=== PATIENT | female | born 1955 | race Caucasian/White ===

== ENCOUNTER 2023-02-12 10:03 | Outpatient (AMB) | payer MEDICARE, SELFPAY ==
--- NOTE | 2023-02-12 10:56 | AM.OFFWIN_ITS ---
Intake Vital Signs 02/12/23 10:57 Height 5 ft 1 in BP 118/64 Blood Pressure Location Lt brachial Position Sitting Pulse 78 Pulse Source Pulse Oximeter Temp 98.8 F Temp Source Temporal Artery Scan Pulse Oximetry (%) 98 Oxygen Delivery Method Room Air Intake Visit Reasons: EST/sores inside of nose (lobby) Intake Note: pt is here for c/o sores inside nose, suspects its herpes virus Patient Tobacco Use Status: Never used Tobacco Allergies No Known Allergies Allergy (Verified 02/12/23 11:01) Do you need a note to return to daycare/school/sports/work: Yes HPI HPI Comments History of Present Illness Details The patient is a 67-year-old female in today for a sick visit. She has a past medical history significant for HIV. She is here today because of pus filled lesions around her mouth x2 weeks. Patient states that when they 1st appeared she tried to drain them herself, which has led to more appearing. She also states that she has pustules in both nostrils. Primary complaint is the pain. She has used Vaseline in her nose with little effect. Denies fever, nausea, vomiting, chills, or diarrhea. Patient has several fluid-filled pustule superior to her upper lip. She also has 2 postural in her left and right [place]. No nasal discharge. Pharynx is normal. TM is intact, visible common pearly amanda. No wheeze. Heart rate normal. The pustules are likely result of HIV status. This is unlikely to be a necrotizing infection. Patient will be given Bactrim to treat the pustules on her face, and erythromycin topical solution for the nares. Patient declined giving labs in office due to her having on appointment with her primary care physician in the near future. Patient has been educated on the side effects of the medication. She has been instructed to stop draining the pustules. She has been educated on signs of worsening symptoms, when to report back to the walk-in clinic and when to report to the emergency room. [facility] Social History Patient Tobacco Use Status: Never used Tobacco Review of Systems Const Details: Constitutional : No Weight loss, No Fever, No Chills, No Fatigue, No Malaise ENT/Mouth : No sore throat, Admits lesions around upper lip and in nostrils. Eyes: No Eye Pain, No Swelling, No Redness Cardiovascular : No Chest Pain, No SOB, No Dyspnea on Exertion, No Orthopnea, No Edema, No Palpitations Respiratory : No Cough, No Sputum, No Wheezing Gastrointestinal : No Nausea, No Vomiting, No Diarrhea, No Constipation, No abdominal Pain, No Hematochezia, No Melena Genitourinary : No Dysuria, No Urinary Frequency, No Hematuria, Musculoskeletal : No joint pain, No Myalgias, No Joint Swelling Skin : No Skin Lesions, No rash Neuro : No Weakness, No Numbness, No Dizziness, No Headache Psych : No Anxiety/Panic, No Depression Heme/Lymph: No Bruising, No Bleeding,No Lymphadenopathy All other systems reviewed and are negative All systems reviewed & are unremarkable except as noted in HPI and below Physical Exam Vital Signs: Last Vital Signs Temp 98.8 F 02/12/23 10:57 Pulse 78 02/12/23 10:57 BP 118/64 02/12/23 10:57 Pulse Ox 98 02/12/23 10:57 Oxygen Delivery Method Room Air 02/12/23 10:57 Vital signs have been reviewed in are stable Appearance: Alert.? Oriented X3.? No acute distress.? Head: Normocephalic, atraumatic, no step-offs or deformities Eyes: Pupils equal, round and reactive to light.? ENT: Pharynx normal. Pustules in nares bilaterally. ? Neck: Normal inspection.? Neck supple.? CVS: Normal heart rate and rhythm.? Pulses normal.? Respiratory: No respiratory distress.? Breath sounds normal.? Abdomen: Soft and nontender.? Skin: four small, erythematous pustules located superior to upper lip. Neuro: Oriented X 3.? Assessment & Plan Assessment & Plan (1) Skin pustule: Comment: Patient will be given Bactrim to be taken in its entirety. Patient will also be given topical erythromycin for the naris. She has been educated on side effects of the medication. She has been educated on signs of worsening symptoms and when to return to the ED and when to return to the walk-in clinic. She has been educated not to drain the pustules at home. She has declined labs in office, states she has upcoming appointment with her PCP soon. Patient is agreeable to this plan Code(s): L08.9 - Local infection of the skin and subcutaneous tissue, unspecified Coding Level of Care Code New Pt Level 4 (96047) Diagnoses Skin pustule L08.9 Time Spent (min) 20
[2023-02-12 10:57] VITALS: BP 118/64; PULSE 78; TEMP 37.1; O2SAT 98
== END 2023-02-12 11:38 | disposition home or self-care (01) ==
PROVIDERS: Visit Provider Nurse Practitioner Primary Care
DX: L08.9 Local infection of the skin and subcutaneous tissue, unspecified (principal)
CPT/HCPCS: 99204

== ENCOUNTER 2024-06-17 11:51 | Outpatient (REF) | payer OTHER, SELFPAY | END 2024-06-17 11:52 | disposition home or self-care (01) | LOC: CF 11:51 | DX: Z13.89 Encounter for screening for other disorder (principal) ==

== ENCOUNTER 2024-12-16 10:34 | Outpatient (AMB) | payer OTHER, SELFPAY ==
--- NOTE | 2024-12-16 10:46 | A.OFFVIS_ITS ---
Intake Visit Reasons: 6 Months AD Allergies No Known Allergies Allergy (Verified 02/12/23 11:01) HPI Comments Details: 69 years old woman with HIV disease and dementia probably of Alzheimer type or multifactorial. She is presenting with difficulty walking and concerns about fall risk. During the history, she reported experiencing repeated falls due to lack of sensation in her right foot leading to improper weight distribution while ambulating at night, resulting in significant injuries including head trauma. Approximately a month ago, she fell and sustained notable facial bruising and soreness following an impact with her furniture. She self-managed the injury with ice application. The history further indicates persistent difficulty in ambulation, characterized by unmet expectations when walking independently, exacerbated by lower back pain with radiation into the right leg, impairing her right leg's mobility. These symptoms have cumulatively contributed to her uncertainty about walking independently without assistance. Her decision to request a cane from her insurance provider reflects a proactive approach towards ensuring her safety and preventing further incidents. [facility] Medical History (Updated 12/16/24 @ 10:51 by Norman Abarca MD) Encephalopathy Alzheimer disease Social History Patient Tobacco Use Status: Never used Tobacco Review of Systems Const Details: - Neurological: Reports difficulty walking, lack of sensation in the right foot - Musculoskeletal: Reports pain in lower back radiating down the right leg - Integumentary: Reports past facial bruising and soreness from a fall Physical Exam Neuro Other: She is alert and awake with normal spontaneity of speech fluency comprehension and affect. Deep tendon reflexes are trace to absent. Gait is cautious. Speech is normal. Assessment & Plan Assessment & Plan (1) HIV disease: Code(s): B20 - Human immunodeficiency virus [HIV] disease Category: Medical (2) Encephalopathy: Code(s): G93.40 - Encephalopathy, unspecified Category: Medical Qualifiers: Encephalopathy type: unspecified encephalopathy Qualified Code(s): G93.40 - Encephalopathy, unspecified (3) Syncope and collapse: Code(s): R55 - Syncope and collapse Category: Medical Plan 69 years old woman with probably controlled HIV disease, cognitive difficulties, and falling with couple of falls of unclear etiology. I had never seen her brain scan that was done years ago at [facility], [place]. Under present circumstances, I have requested an MRI of brain in an EEG. Orders: Orders MR head/brain wo/w con Today G93.40 - Encephalopathy, unspecified EEG electroencephalogram Today G93.40 - Encephalopathy, unspecified Coding Level of Care Code Est Pt Level 4 (65421) Diagnoses HIV disease B20 Encephalopathy, unspecified type G93.40 Encephalopathy type: unspecified encephalopathy Syncope and collapse R55
--- OUTSIDE RECORDS SUMMARY | 2024-12-16 13:02 | XMS_ITS | Clinical Summary ---
Author Organization [address] Address [address] [place] [phone] Phone Care Team Providers Care Real Estate Transaction Coordinator Name Role Phone Roxana Mendez MD Primary Care Provider [phone] Allergies No known active allergies Medications buprenorphine-n aloxone (SUBOXONE) 8-2 mg per SL film Place under the tongue. Prescribed by the Suboxone clinic Active buPROPion SR (WELLBUTRIN SR) 200 mg 12 hr tablet Take 1 tablet (200 mg total) by mouth 2 (two) times a day. Prescribed by the Infectious Disease Provider Active naloxone (Narcan) 4 mg/0.1 mL nasal spray CALL 911. SPR CONTENTS OF ONE SPRAYER (0.1ML) INTO ONE NOSTRIL. REPEAT IN 2-3 MIN IF SYMPTOMS OF OPIOID EMERGENCY PERSIST, ALTERNATE NOSTRILS 4 Active darunavir-cobic istat-emtricita bine-tenofovir ala (Symtuza) [phone] mg per tablet Take 1 tablet by mouth 1 (one) time each day. Prescribed by Infectious Disease Active sertraline (ZOLOFT) 25 mg tablet Take 1 tablet (25 mg total) by mouth 1 (one) time each day. 90 tablet 1 5 Active donepeziL (ARICEPT) 10 mg tablet Take 1 tablet (10 mg total) by mouth at bedtime. Prescribed by Neurologist, Dr. 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 ([facility] V24, [facility] V28) 09/16/2023 Overview (02/04/2024): Believed to be related with frequent falls, severe multilevel neuroforaminal stenosis with most pronounced at C5-6, status post MRI, CT angiograms.note 09/16/23 Substance abuse ([facility] V24, [facility] V28) 09/15 Overview (02/04/2024): most recently Heroin, on suboxone from [place] S[place]ope 05/02/2022 Fatty liver 03/09/2019 Overview (02/04/2024): US 11/2010 Assessment & Plan (05/12/2024 1:10 PM EST): LFTs were elevated on last hepatic function test. Order placed for patient to repeat CMP. Patient is to contact office if she develop any abdominal discomfort jaundice or yellowing of the sclera. She is not currently followed by gastroenterology. She last saw her purse seining hand in 2023 for progressive weight loss. Workup was unremarkable. Will refer patient back to gastroenterology if LFT continues to trend up or if patient develop any abdominal discomfort or yellowing of the skin or eyes. Herpes simplex type 1 antibody positive 03/09/20 Overview (02/04/2024): 04/30/18, Type 2 neg Lumbar stenosis 03/09/2019 Overview (02/04/2024): L2-L3, L3-L4, MRI 08/2010 Osteopenia 03/09/2019 Overview (02/04/2024): DEXA 12/13/10 Unspecified cirrhosis of liver ([facility] V24, [facility] V28) 03/09/2019 Type 2 diabetes mellitus wit h renal manifestations ([facility] V24, [facility] V28) 03/09/2019 Assessment & Plan (05/12/2024 1:10 PM EST): Patient is to repeat A1c in 6 months from the last. Order placed Please maintain a low carb diet to optimize blood sugar levels (avoid sweet drinks/snacks, excess bread, pasta intake and replace red meat with chicken and fish and increase salad intake). Attempt exercise daily or at least 3 times a week for 30 min. Complications associated with uncontrolled diabetes includes, but are not limited to an increased risk of cardiovascular disease, retinopathy, neuropathy, renal disease, increased risk of infections with open wounds and amputations. Orders: Hemoglobin A1c; Future Comprehensive metabolic panel; Future Thyroid stimulating hormone with reflex to free t4 and free t3; Future Fatigue 12/15/2018 Microalbuminuria 12/15/2018 Leukopenia 03/27/2018 Thrombocytopenia ([facility] V24) 03/29/2017 Cataracts, bilateral 07/20/2016 Posterior vitreous detachment 07/20/2016 Overview (02/04/2024): Bilat Chronic cholecystitis 12/27/2014 Vitamin D deficiency 12/26/2014 DM (diabetes mellitus), type 2 with neurological complications ([facility] V24, [facility] V28) 09/02/2014 Opiate dependence ([facility] V24, [facility] V28) 11/2014 Overview (02/04/2024): Suboxone Type 2 diabetes mellitus wit h cataract ([facility] V24, [facility] V28) 09/17/2011 Overview (02/04/2024): Nuclear sclerosis noted by Dr. Cross Last Assessment & Plan: Checking Your Blood Sugars Please check your blood sugars every day. Please check your sugars at the following times of day: before breakfast, before lunch, before dinner and before bedtime Your Blood Sugar Goals Pre Meal: 90-130 2 hours after meals: 110-160 Bedtime: 110-150 Use the Results Bring your glucometer to every appointment Write your fingerstick blood sugars down on a log sheet or record book. Bring them to your appointment Look for patterns in the numbers. The results help you and your provider make decisions about your diabetes treatment plan. Your Results and your Goals Your Result / Date of Completion Your Goal / How Often to Assess Component Value Date HGBA1C 9.0 04/05/2012 Less than 7%--- 2-4 times per year BP Readings from Last 1 Encounters: 10/08/12 132/83 Less than 130/80--- once per year Component Value Date LDL 134 04/05/2012 LDL less than 100--- once per year Component Value Date MALBUR 11.9 04/05/2012 Less than 30--- once per year Wt Readings from Last 1 Encounters: 10/08/12 156 lb 9.6 oz (71.033 kg) Your goal weight by next visit: 150 --- reassess 2-4 times a year Health Maintenance Due Topic Date Due ? Colon Cancer Screening 01/01/2008 ? Diabetes: Blood Sugar Control Test (Hgba1c) 08/03/2012 ? Mammogram 08/08/2012 ? Diabetes: Annual Foot Exam 09/16/2012 ? Diabetes: Annual Care Plan 09/16/2012 Your Action Plan Check blood glucose as directed and write down all results. Contact me if you experience any barriers to care such as inability to purchase your medication, difficulty getting to your appointments or difficulty understanding your care plan follow with [facility] dm specialist When to Call your Healthcare Provider If your blood sugar falls below 70 and you do not know why or you become unconscious If you are sick and unable to take liquids because or nausea or vomiting If you have a fever over 101 If your blood sugar is 300 or higher on greater than 3 separate occasions during the same week If you are just unsure what to do Educational Resources [place] Diabetes Association (www.diabetes.org) Centers for Disease Control and Prevention (www.cdc.gov/diabetes) This care plan was created in collaboration with Reba Laureano on 10/08/2012 Adrenal insufficiency ([facility] V24) 12/30/2009 Human immunodeficiency virus (HIV) disease ([facility] V24, [facility] V28) 12/06/2006 Overview (02/04/2024): On meds since 2007- Dr. Ana Brizuela, viral load undetectable 10/08/18 Assessment & Plan (05/12/2024 1:10 PM EST): Patient is to continue Symtuza as prescribed by infectious disease. Patient is to continue following up with infectious disease. Cocaine abuse, episodic ([facility] V24, [facility] V2 8) 10/25/2006 GERD (gastroesophageal reflux disease) 7 Major depressive disorder 10/25/2005 Mixed hyperlipidemia 10/25/2005 Assessment & Plan (05/12/2024 1:10 PM EST): Last LDL 96. Cardiovascular risk and specific lipid/LDL goals reviewed. I discussed in context of patient risks of coronary artery disease which is associated with total cholesterol, high LDL and low HDL cholesterol. It was also discussed in the context of patient's family history CAD and ME. Lifestyle modification was discussed. I recommend exercise 3-4 times per week on average 30 minutes each at moderate to vigorous intensity. Dietary change include: Incorporation of fruits and vegetable whole-grain low-fat dairy products, poultry, fish and legumes. limitation of sugar sweetened beverage other sweets and red meats. Reduce calorie from saturated and trans fat. Orders: Hemoglobin A1c; Future Comprehensive metabolic panel; Future Thyroid stimulating hormone with reflex to free t4 and free t3; Future Encounters Date Type Department Care Team Description 10/01/2024 Telephone Adult Medicine [address] [phone] Roxana Mendez MD from Last 3 Months Immunizations Name Administration Dates Next Due Hepatitis B (Ibdyrql-C-Akcrf , Recombivax HB-Adult) 19yo and older 04/28/2007,03/07/2004,06/24/2000 Hepatitis B (Recombivax HB-D ialysis) 18yo and older 11/25/2006,10/25/2006 Influenza trivalent, 0.5mL, preservative free (Fluarix; FluLaval; Fluzone) ages 6mo and older (Afluria) 3 years and older 12/18/2021,03/17/2021,02/17/2019,04/30,12/30/2009,01/07/2007 Influenza trivalent, with pr eservative (Fluzone; Afluria) 6mo and older 01/28/2006 PPD Test 10/11/2006,06/27/2000,06/24/2000 Pneumococcal polysaccharide 23 valent (Pneumovax 23) 2yo and older 12/18/2021,03/17/2002 Td Tetanus diptheria (Tdvax) 7yo and older 06/24/2000 Td, Unspecified 06/24/2000 Tdap Tetanus diptheria acell ular pertussis (Boostrix; Adacel) 7yo and older 10/31/2011 Surgical History Surgery Date Site/Laterality Comments HYSTERECTOMY 2000 PROCEDURE: HISTORICAL TOTAL HYSTERECTOMY WITH BSO; COMMENT: excessive bleeding SECTION PROCEDURE: HISTORICAL DELIVERY; COMMENT: X 3 BREAST LUMPECTOMY PROCEDURE: HISTORICAL BREAST LUMPECTOMY UPPER GASTROINTESTINAL ENDOSCOPY 03/03/12 PROCEDURE: DC UPPER GI ENDOSCOPY PERFORMED; COMMENT: normal COLONOSCOPY 12/31/2006 PROCEDURE: HISTORICAL COLONOSCOPY; COMMENT: negative Medical History Medical History Date Comments Adrenal insufficiency ([facility] V24) 12/30/2009 DX:Adrenal insufficiency ([facility]) Cataracts, bilateral 07/20/2016 DX:Cataract s, bilateral Chronic cholecystitis 12/27/2014 DX:Chronic cholecystitis Cocaine abuse, episodic ([facility] V24, [facility] V28) 10/25/2006 DX:Cocaine abuse, episodic ( HCC) DM (diabetes mellitus), type 2 with neurological complications ([facility] V24, [facility] V28) 09/02/2014 DX:DM (diabetes mellitus), t ype 2 with neurological complications ([facility]) Fatigue 12/15/2018 DX:Fatigue Fatty liver 03/09/2019 DX:Fatty liver; COMMENT: US 11/2010 GERD (gastroesophageal reflu x disease) 09/17/2006 DX:GERD (gastroesophageal re flux disease) Herpes simplex type 1 antibo dy positive 03/09/2019 DX:Herpes simplex type 1 ant ibody positive; COMMENT: 04/30/18, Type 2 neg History of carpal tunnel rel ease of both wrists 10/25/2006 DX:History of carpal tunnel release of both wrists; COMMENT: [facility] surgery -09/2010 History of transient ischemi c attack (TIA) 06/10/2018 DX:History of transient isch emic attack (TIA); COMMENT: Admitted [facility] 03/02/2018. Human immunodeficiency virus (HIV) disease ([facility] V24, [facility] V28) 12/06/2006 DX:Human immunodefi ciency virus (HIV) disease ([facility]); COMMENT: On meds since 2007- Dr. Ana Brizuela, viral load undetectable 10/08/18 Leukopenia 03/27/2018 DX:Leukopenia Lumbar stenosis 03/09/2019 DX:Lumbar stenos is; COMMENT: L2-L3, L3-L4, MRI 08/2010 Major depressive disorder 10/25/2005 DX:Ben or depressive disorder Microalbuminuria 12/15/2018 DX:Microalbumin uria Opiate dependence ([facility] V 24, [facility] V28) 04/09/2014 DX:Opiate dependence ([facility]); COMMENT: Suboxone Osteopenia 03/09/2019 DX:Osteopenia; C OMMENT: DEXA 12/13/10 Posterior vitreous detachment 07/20/2016 DX :Posterior vitreous detachment; COMMENT: Bilat 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 Cross Type 2 diabetes mellitus wit h renal manifestations ([facility] V24, [facility] V28) 03/09/2019 DX:Type 2 diabetes mellitus with renal manifestations (HCC) Unspecified cirrhosis of rustam er ([facility] V24, [facility] V28) 03/09/2019 DX:Unspecified cirrhosis of liver (HCC) Vitamin D deficiency 12/26/2014 DX:Vitamin D deficiency Mixed hyperlipidemia 10/25/2005 DX:Mixed hy perlipidemia History of COVID-19 05/02/2021 DX:History o f COVID-19; COMMENT: 12/2020 Family History Medical History Relation Name Comments Diabetes Father fibromyalgia, a rthritis Stroke Maternal Grandfather pt not really sure Diabetes Mother colon polyps, a rthritis, glaucoma, cataract Glaucoma Sister Relation Name Status Comments Father Maternal Grandfather Mother Sister Social History Tobacco Use Types Packs/Day Years Used Date Smoking Tobacco: Former Cigarettes Q uit: 04/01/2010 Smokeless Tobacco: Never Alcohol Use Standard Drinks/Week Comments Yes 0 (1 standard drink = 0.6 oz pur e alcohol) Comments No Sex and Gender Information Value Date Recorded Sex Assigned at Not on file Legal Sex Female 8:14 AM EST Gender Identity Not on file Sexual Orientation Not on file Obstetrics History Last Filed Vital Signs Vital Sign Reading Time Taken Comments Blood Pressure 125/62 05/12/2024 11:14 AM EST Pulse 53 05/12/2024 11:14 AM EST Temperature 36.2 C (97.1 F) 05/12/2024 11:14 AM EST Respiratory Rate 16 05/12/2024 11:14 AM EST Oxygen Saturation 98% 05/12/2024 11:14 AM EST Inhaled Oxygen Concentration - - Weight 46.4 kg (102 lb 6.4 oz) 05/12/2024 11:14 AM EST Height 154.9 cm (5' 1 ) 05/12/2024 11:14 AM EST Body Mass Index 19.35 05/12/2024 11:14 AM EST Plan of Treatment Upcoming Encounters Date Type Department Care Team (Late st Contact Info) Description 02/11/2025 11:15 AM EST Office Visit Adult Medicine [address] [phone] Roxana Mendez MD [address] [place] [address] Health Maintenance Due Date Last Done Comments Breast Cancer Screening 1955 Diabetes: Annual Foot Exam 08/23/1965 Diabetes: Annual Retina Eye Exam 08/23/1965 Zoster Vaccines (1 of 2) 08/23/1974 Medicare Annual Wellness Visit 03/04/2022 Osteoporosis Screening (Bone Density Screening) 03/04/2022 Social Influencers of Health Screening 03/04/2022 Diabetes: Annual Urine Albumin-Creatinine Ratio (uACR) 09/15/2024 09/16/2023 Diabetes: Blood Sugar Control Test (HGBA1C) 09/28/2024 03/30/2024, 09/16/2023, 09/16/2023 Diabetes: Annual GFR (Glomerular Filtration Rate) 03/30/2025 03/30/2024, 09/16/2023, 09/16/2023 Hypertension/CHF/CAD Annual BMP Blood Test 03/30/2025 03/30/2024, 09/16/2023, 09/16/2023 Falls Risk Assessment 05/12/2025 05/12/2024 Colorectal Cancer Screening: Colonoscopy 10/17/2026 10/17/2016 Cholesterol Screening (Lipid Panel) 03/30/2029 03/30/2024, 01/01/2023 Hepatitis B Vaccines Completed 04/28/2007, 11/25/2006, 10/25/2006, Additional history exists DTaP,Tdap,and Td Vaccines Discontinued 2011, 06/24/2000, 06/24/2000 Hepatitis C Screening Completed 03/29/2017 Influenza Vaccine Discontinued 12/18/2021, , 02/17/2019, Additional history exists Pneumococcal Vaccine: 50+ Years Discontinued 12/18/2021, 03/17/2002 Depression Screening Completed 05/12/2024, 02/21/20 23 COVID-19 Vaccine Discontinued HIB Vaccines Aged Out No longer eligi ble based on patient's age to complete this topic HPV Vaccines Aged Out No longer eligi ble based on patient's age to complete this topic Hepatitis A Vaccines Discontinued IPV Vaccines Aged Out No longer eligi ble based on patient's age to complete this topic MMR Vaccines Discontinued Meningococcal ACWY Vaccine Discontinued Meningococcal B Vaccine Aged Out No l onger eligible based on patient's age to complete this topic RSV Immunization Adult Patients Discontinued RSV Immunization Patients Under 20 months Aged Out No longer eligible based on patient's age to complete this topic Varicella Vaccines Aged Out No longer eligible based on patient's age to complete this topic Procedures Procedure Name Priority Date/Time Associated Diagnosis Comments CREATININE, SERUM Routine 03/30/2024 10: 58 AM EST Human immunodeficiency virus (HIV) disease ([facility] V24, [facility] V28) HEMOGLOBIN A1C Routine 03/30/2024 10:58 AM EST DM (diabetes mellitus), type 2 with neurological complications (CMS/HCC V24, CMS/HCC V28) LIPID PANEL WITH REFLEX TO DIRECT LDL Routine 03/30/2024 10:58 AM EST DM (diabetes mellitus), type 2 with neurological complications (CMS/HCC V24, CMS/HCC V28) HM URINE ALBUMIN CREATININE RATIO Routine 09/16/2023 DEPRESSION SCREENING Routine 02/20/2023 HEPATITIS C SCREENING Routine 03/29/2017 COLONOSCOPY Routine 10/17/2016 from Last 3 Months or Most Recently Relevant to Health Maintenance Results * (ABNORMAL) Lipid panel with reflex to direct LDL (03/30/2024 10:58 AM EST) Cholesterol 189 0 - 200 mg/dL LAB CHEMISTRY METHOD 03/30/2024 6:01 PM [facility] Triglycerides 204(H) 0 - 150 mg/dL LAB CHEMISTRY METHOD 03/30/2024 6:01 PM [facility] HDL 52 >=40 mg/dL LAB CHEMISTRY METHOD 03/30/2024 6:01 PM [facility] LDL Calculated 96 0 - 100 mg/dL LAB CHEMISTRY METHOD 03/30/2024 6:01 PM [facility] VLDL Cholesterol Cm 40.8 mg/dL LAB CHEMISTRY METHOD 03/30/2024 6:01 PM [facility] Non HDL Chol. (LDL+VLDL) 137 <145 mg/dL LAB CHEMISTRY METHOD 03/30/2024 6:01 PM [facility] Chol/HDL Ratio 3.6 0.0 - 4.4 LAB CHEMISTRY METHOD 03/30/2024 6:01 PM [facility] Blood Venous blood specimen / Unknown Venipuncture / Unknown 03/30/2024 10:58 AM EST 03/30/2024 10:58 AM EST Roxana Mendez MD LAB BLOOD ORDERABLES Final Resul t [facility] [address] [place] [address], [place] [phone] * Creatinine (03/30/2024 10:58 AM EST) Creatinine 0.69 0.50 - 1.10 mg/dL LAB CHEMISTRY METHOD 03/30/2024 5:55 PM EST [facility] eGFR 95 >=60 mL/min/1. 73m2 LAB CHEMISTRY METHOD 03/30/2024 5:55 PM EST [facility] Comment:Calculation based on the Chronic Kidney Disease Epidemiology Collaboration (CKD-EPI) equation refit without adjustment for race. Blood Venous blood specimen / Unknown Venipuncture / Unknown 03/30/2024 10:58 AM EST 03/30/2024 10:58 AM EST Ana Brizuela MD LAB BLOOD ORDERABLES Lucy l Result Performing Organization Address City/[facility]/ZIP Co de Phone Number [facility] [address] [place] [address], [place] [phone] * (ABNORMAL) Hemoglobin A1c (03/30/2024 10:58 AM EST) Hemoglobin A1C 6.5(H) <6.5 % LAB CHEMISTRY METHOD 03/30/2024 2:01 PM EST [facility] Mean Bld Glu Estim. 140 mg/dL LAB CHEMISTRY METHOD 03/30/2024 2:01 PM EST [facility] Blood Venous blood specimen / Unknown Venipuncture / Unknown 03/30/2024 10:58 AM EST 03/30/2024 10:58 AM EST Roxana Mendez MD LAB BLOOD ORDERABLES Final Resul t [facility] ([facility]) [facility] [address] [place] [address], * Urine Albumin Creatinine Ratio (09/16/2023) Pathologist [facility] Urine Albumin Creatinine Ratio Abstracted Historical Provider HEALTH MAINTENANCE Final Result * Depression Screening (02/20/2023) Pathologist [facility] Depression Screening Abstracted Historical Provider HEALTH MAINTENANCE Final Result * Hepatitis C Screening (03/29/2017) [facility] Hepatitis C Screening Abstracted Historical Provider HEALTH MAINTENANCE Final Result * Colonoscopy (10/17/2016) Pathologist [facility] Colonoscopy No INterpretation , Abstracted Anatomical Region Laterality Modality Other Historical Provider HEALTH MAINTENANCE Final Result from Last 3 Months or Most Recently Relevant to Health Maintenance Insurance [place] [facility] MEDICARE Member Subscriber Plan / Payer (Ef fective 2022-Present) Name:Reba Laureaon Relation to Subscriber:Self Name:Reba Laureano Payer ID:[id number] Group ID:[id number] Type:Not on file Address: [address] [place] [address] MEDICARE Care Teams Real Estate Transaction Coordinator Relationship Specialty Start Date End Date Roxana Mendez MD [address] [place] [address] PCP - General Internal Medicine 01/29/1999
== END 2024-12-16 11:01 | disposition home or self-care (01) ==
LOC: HO.HSM 10:34
PROVIDERS: PCP Internal Medicine; Referring Provider Internal Medicine; Visit Provider Psychiatry & Neurology Neurology
DX: B20 Human immunodeficiency virus [HIV] disease (principal); G93.40 Encephalopathy, unspecified; R55 Syncope and collapse
CPT/HCPCS: 99214

== ENCOUNTER → 2024-12-16 10:34 | Outpatient (BNVA) | payer OTHER, SELFPAY | PROVIDERS: PCP Internal Medicine; Referring Provider Internal Medicine; Visit Provider Psychiatry & Neurology Neurology | DX: B20 Human immunodeficiency virus [HIV] disease (principal); R55 Syncope and collapse; G93.40 Encephalopathy, unspecified; Z91.81 History of falling | CPT/HCPCS: 99212 ==

== ENCOUNTER 2024-12-25 10:16 | Outpatient (REF) | payer OTHER, SELFPAY ==
--- NOTE | 2024-12-25 11:31 | EEG_ITS ---
Roomed Performed:?402 Reason: encephalopathy History: HIV, dementia - Patient reports episodes of falls. Last one being 3 weeks ago with facial bruising. Medication: bupropion, darunavir, erythromycin, sulfamethoxazole Technical description? Photic stimulation: completed Hyperventilation:?omitted Behavioral state: pleasant State of Consciousness: awake Skull defect: none Sedation: no Handedness: right Duration of study:?31 min 8 sec Description: This is a 16 channel EEG with an EKG lead. Patient is reported awake during the tracing. Background EEG rhythm is about 10 hertz 5-100 microvolt posteriorly and lower amplitude fast anteriorly. Photic stimulation does not produce significant driving. Hyperventilation is not performed. Cardiac lead does not reveal any significant abnormality. No sharp wave spikes or paroxysmal tendency noted. Impression: Unremarkable EEG. MTDD
--- OUTSIDE RECORDS SUMMARY | 2024-12-25 11:34 | XMS_ITS | Clinical Summary ---
Author Organization [address] Address [address] [place] [id number] Phone Care Team Providers Care Plumbing Contractor Name Role Phone Roxana Mendez MD Primary Care Provider [phone] Allergies No known active allergies Medications buprenorphine-n [...] 4 Active darunavir-cobic istat-emtricita bine-tenofovir ala (Symtuza) [phone] mg per tablet Take 1 tablet by [...] kasie r depressive disorder without prior episode ([facility] V24) 10/16/2023 Frequent falls 09/16/2023 Overview (02/04/2024): With left-sided weakness, extensive hospitalization August 2023, believed to be related with severe C-spine disease 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 ([facility] V24, [facility] V28) 09/16/2023 Overview (02/04/2024): Believed to be related with frequent falls, severe multilevel neuroforaminal stenosis with most pronounced at C5-6, status post MRI, CT angiograms.note 09/16/23 Substance abuse ([facility] V24, [facility] V28) 09/15 Overview (02/04/2024): most recently Heroin, [...] followed by gastroenterology. She last saw her supervisor assembling in 2023 for progressive weight loss. Workup [...] (02/04/2024): DEXA 12/13/10 Unspecified cirrhosis of liver ([facility]24, [facility] V28) 03/09/2019 Type 2 diabetes mellitus wit h renal manifestations ([facility] V24, [facility] V28) 03/09/2019 Assessment & Plan (05/12/2024 1:10 [...] Fatigue 12/15/2018 Microalbuminuria 12/15/2018 Leukopenia 03/27/2018 Thrombocytopenia ([facility] V24) 03/29/2017 Cataracts, bilateral 07/20/2016 Posterior vitreous detachment 07/20/2016 Overview (02/04/2024): Bilat Chronic cholecystitis 12/27/2014 Vitamin D deficiency 12/26/2014 DM (diabetes mellitus), type 2 with neurological complications ([facility] V24, [facility] V28) 09/02/2014 Opiate dependence ([facility] V24, [facility] V28) 11/2014 Overview (02/04/2024): Suboxone Type 2 diabetes mellitus wit h cataract ([facility] V24, [facility] V28) 09/17/2011 Overview (02/04/2024): Nuclear sclerosis noted [...] just unsure what to do Educational Resources [place] Diabetes [employer] (www.diabetes.org) Centers for Disease Control and Prevention (www.cdc.gov/diabetes) This care plan was created in collaboration with Reba Cisneros on 10/08/2012 Adrenal insufficiency ([facility] V24) 12/30/2009 Human immunodeficiency virus (HIV) disease ([facility] V24, [facility] V28) 12/06/2006 Overview (02/04/2024): On meds since 2007- Dr. Ana Brizuela, viral load undetectable 10/08/18 Assessment & Plan (05/12/2024 1:10 PM EST): Patient is to continue Symtuza as prescribed by infectious disease. Patient is to continue following up with infectious disease. Cocaine abuse, episodic ([facility] V24, [facility] V2 8) 10/25/2006 GERD (gastroesophageal reflux disease) [...] context of patient's family history CAD and OK. Lifestyle modification was discussed. I recommend exercise [...] Care Team Description 10/01/2024 Telephone Adult Medicine [address] [phone] Roxana Mendez MD from Last 3 Months Immunizations Name Administration Dates Next Due Hepatitis B (Oqlecwq-B-Aypiq , Recombivax HB-Adult) 19yo and older 04/28/2007,03/07/2004,06/24/2000 [...] BREAST LUMPECTOMY UPPER GASTROINTESTINAL ENDOSCOPY 03/03/12 PROCEDURE: [place] UPPER GI ENDOSCOPY PERFORMED; COMMENT: normal COLONOSCOPY 12/31/2006 PROCEDURE: HISTORICAL COLONOSCOPY; COMMENT: negative Medical History Medical History Date Comments Adrenal insufficiency ([facility] V24) 12/30/2009 DX:Adrenal insufficiency ([facility]) Cataracts, bilateral 07/20/2016 DX:Cataract s, bilateral Chronic cholecystitis 12/27/2014 DX:Chronic cholecystitis Cocaine abuse, episodic ([facility] V24, [facility] V28) 10/25/2006 DX:Cocaine abuse, episodic ( HCC) DM (diabetes mellitus), type 2 with neurological complications ([facility] V24, [facility] V28) 09/02/2014 DX:DM (diabetes mellitus), t ype 2 with neurological complications ([facility]) Fatigue 12/15/2018 DX:Fatigue Fatty liver 03/09/2019 DX:Fatty [...] [facility] 03/02/2018. Human immunodeficiency virus (HIV) disease ([facility] V24, [facility] V28) 12/06/2006 DX:Human immunodefi ciency virus (HIV) disease ([facility]); COMMENT: On meds since 2007- Dr. Ana Brizuela, viral load undetectable 10/08/18 Leukopenia 03/27/2018 DX:Leukopenia Lumbar stenosis 03/09/2019 DX:Lumbar stenos is; COMMENT: L2-L3, L3-L4, MRI 08/2010 Major depressive disorder 10/25/2005 DX:Ben or depressive disorder Microalbuminuria 12/15/2018 DX:Microalbumin uria Opiate dependence ([facility] V 24, [facility] V28) 04/09/2014 DX:Opiate dependence ([facility]); COMMENT: Suboxone Osteopenia 03/09/2019 DX:Osteopenia; C OMMENT: DEXA 12/13/10 Posterior vitreous detachment 07/20/2016 DX :Posterior vitreous detachment; COMMENT: Bilat Suspected carrier of methici llin resistant Staphylococcus aureus (MRSA) 03/09/2019 DX:Suspected carrier of meth icillin resistant Staphylococcus aureus (MRSA); COMMENT: 01/2018 Thrombocytopenia ([facility] V24) 03/29/2017 D X:Thrombocytopenia (HCC) Type 2 diabetes mellitus wit h cataract ([facility] V24, [facility] V28) 09/17/2011 DX:Type 2 diabetes mellitus with cataract (HCC); COMMENT: Nuclear sclerosis noted by Dr. Cross Type 2 diabetes mellitus wit h renal manifestations ([facility] V24, [facility] V28) 03/09/2019 DX:Type 2 diabetes mellitus with renal manifestations (HCC) Unspecified cirrhosis of rustam er ([facility] V24, [facility] V28) 03/09/2019 DX:Unspecified cirrhosis of liver (HCC) [...] 11:15 AM EST Office Visit Adult Medicine [address] [phone] Roxana Mendez MD [address] [place] [address] Health Maintenance Due Date Last Done Comments Breast Cancer Screening 1955 Diabetes: Annual Foot Exam 08/23/1965 Diabetes: Annual Retina Eye Exam 08/23/1965 Zoster Vaccines (1 of 2) 08/23/1974 Medicare Annual Wellness Visit 03/04/2022 Osteoporosis Screening (Bone Density Screening) 03/04/2022 Social Influencers of Health Screening 03/04/2022 Diabetes: Annual Urine Albumin-Creatinine Ratio (uACR) 09/15/2024 09/16/2023 Diabetes: Blood Sugar Control Test (HGBA1C) 09/28/2024 03/30/2024, 09/16/2023, 09/16/2023 Falls Risk Assessment 05/12/2025 05/12/2024 Diabetes: Annual GFR (Glomerular Filtration Rate) 12/21/2025 12/21/2024, 03/30/2024, 09/16/2023, Additional history exists Hypertension/CHF/CAD Annual BMP Blood Test 12/21/2025 12/21/2024, 03/30/2024, 09/16/2023, Additional history exists Colorectal Cancer Screening: Colonoscopy 10/17/2026 10/17/2016 Cholesterol Screening (Lipid Panel) 03/30/2029 03/30/2024, 01/01/2023 Hepatitis B Vaccines Completed 04/28/2007, 11/25/2006, 10/25/2006, Additional history exists DTaP,Tdap,and Td Vaccines Discontinued 2011, 06/24/2000, 06/24/2000 Influenza Vaccine Discontinued 12/18/2021, , 02/17/2019, Additional history exists Pneumococcal Vaccine: 50+ Years Discontinued 12/18/2021, 03/17/2002 Depression Screening Completed 05/12/2024, 02/21/20 23 Hepatitis C Screening Completed 12/21/2024, 017 COVID-19 Vaccine Discontinued HIB Vaccines Aged Out [...] Procedure Name Priority Date/Time Associated Diagnosis Comments CBC WITH AUTO DIFFERENTIAL Routine 12/21/2024 1:29 PM EDT Acquired immune deficiency syndrome ([facility] V24, [facility] V28) CBC AND DIFFERENTIAL Routine 12/21/2024 1:29 PM EDT Acquired immune deficiency syndrome (CMS/HCC V24, CMS/HCC V28) HIV 1 MOLECULAR STUDY QUANTITATIVE Routine 12/21/2024 1:29 PM EDT Acquired immune deficiency syndrome (CMS/HCC V24, CMS/HCC V28) COMPREHENSIVE METABOLIC PANEL Routine 12/21/2024 1:29 PM EDT Acquired immune deficiency syndrome (CMS/HCC V24, CMS/HCC V28) LYMPHOCYTE T-CELL PANEL Routine 12/21/2024 1:29 PM EDT Acquired immune deficiency syndrome (CMS/HCC V24, CMS/HCC V28) HEPATITIS B SURFACE ANTIGEN WITH CONFIRMATION Routine 12/21/2024 1:29 PM EDT Acquired immune deficiency syndrome (CMS/HCC V24, CMS/HCC V28) HEPATITIS C ANTIBODY Routine 12/21/2024 1:29 PM EDT Acquired immune deficiency syndrome (CMS/HCC V24, CMS/HCC V28) TREPONEMA PALLIDUM ANTIBODY WITH REFLEX TO RPR AND PARTICLE AGGLUTINATION Routine 12/21/2024 1:29 PM EDT Acquired immune deficiency syndrome (CMS/HCC V24, CMS/HCC V28) CHLAMYDIA TRACHOMATIS AND NEISSERIA GONORRHOEAE PCR Routine 12/21/2024 1:29 PM EDT Acquired immune deficiency syndrome (CMS/HCC V24, CMS/HCC V28) HEMOGLOBIN A1C Routine 03/30/2024 10:58 AM EST DM (diabetes mellitus), type 2 with neurological complications (CMS/HCC V24, CMS/HCC V28) LIPID PANEL WITH REFLEX TO DIRECT LDL Routine 03/30/2024 10:58 AM EST DM (diabetes mellitus), type 2 with neurological complications (CMS/HCC V24, CMS/HCC V28) HM URINE ALBUMIN CREATININE RATIO Routine 09/16/2023 DEPRESSION SCREENING Routine 02/20/2023 COLONOSCOPY Routine 10/17/2016 from Last 3 Months or Most Recently Relevant to Health Maintenance Results * Hepatitis C antibody (12/21/2024 1:29 PM EDT) Pathologist [facility] Hepatitis C Antibody Negative Negative LAB CHEMISTRY METHOD 12/21/2024 6:02 PM EDT [facility] Blood Venous blood specimen / Unknown Venipuncture / Unknown 12/21/2024 1:29 PM EDT 12/21/2024 1:29 PM EDT us Ana Brizuela MD LAB BLOOD ORDERABLES Lucy l Result Performing Organization Address [facility] de Phone Number [facility] [address] [place] [address], [place] [phone] * Hepatitis B surface antigen with reflex to confirmation (12/21/2024 1:29 PM EDT) [facility] Hepatitis B Surface Ag Negative Negative LAB CHEMISTRY METHOD 12/21/2024 5:33 PM EDT [facility] Blood Venous blood specimen / Unknown Venipuncture / Unknown 12/21/2024 1:29 PM EDT 12/21/2024 1:29 PM EDT Narrative [facility] - 12/21/2024 5:33 PM EDT Over the counter supplements containing high doses of biotin may interfere with this assay. If interference is suspected, patients shoud be retested after refraining from biotin supplements for 72 hours. us Ana Brizuela MD LAB BLOOD ORDERABLES Lucy l Result Performing Organization Address [facility]/ZIP Co de Phone Number [facility] [address] [place] [address], [place] [phone] * Treponema pallidum antibody with reflex to RPR and particle agglutination (12/21/2024 1:29 PM EDT) [facility] T. Pallidum Antibodies Negative Negative LAB CHEMISTRY METHOD 12/21/2024 5:33 PM EDT [facility] Blood Venous blood specimen / Unknown Venipuncture / Unknown 12/21/2024 1:29 PM EDT 12/21/2024 1:29 PM EDT us Ana Brizuela MD LAB BLOOD ORDERABLES Lucy l Result [facility] [address] [place] [address], * (ABNORMAL) CBC auto differential (12/21/2024 1:29 PM EDT) [facility] WBC 2.5(L) 4.8 - 10.8 K/mcL LAB HEMETOLOGY METHOD 12/21/2024 4:30 PM EDT [facility] RBC 3.90 3.80 - 4.80 M/mcL LAB HEMETOLOGY METHOD 12/21/2024 4:30 PM EDT [facility] Hemoglobin 12.6 11.5 - 16.0 g/dL LAB HEMETOLOGY METHOD 12/21/2024 4:30 PM EDT [facility] Hematocrit 38.3 35.0 - 47.0 % LAB HEMETOLOGY METHOD 12/21/2024 4:30 PM EDT [facility] MCV 97.2 79.0 - 98.0 FL LAB HEMETOLOGY METHOD 12/21/2024 4:30 PM EDT [facility] MCH 32.0 27.0 - 32.0 pcg LAB HEMETOLOGY METHOD 12/21/2024 4:30 PM EDT [facility] MCHC 32.9 32.0 - 37.0 g/dL LAB HEMETOLOGY METHOD 12/21/2024 4:30 PM EDT [facility] RDW 12.2 11.0 - 15.0 % LAB HEMETOLOGY METHOD 12/21/2024 4:30 PM EDT [facility] Platelets 140 130 - 400 K/mcL LAB HEMETOLOGY METHOD 12/21/2024 4:30 PM EDT [facility] MPV 9.8 7.0 - 11.0 FL LAB HEMETOLOGY METHOD 12/21/2024 4:30 PM EDT [facility] NRBC 0.0 <1.0 % LAB HEMETOLOGY METHOD 12/21/2024 4:30 PM EDT [facility] NRBC Absolute 0.00 <0.10 K/mcL LAB [facility]ETOLOGY [facility] Neutrophils Relative 59.6 % LAB HEMETOLOGY METHOD 12/21/2024 4:30 PM EDT [facility] Lymphocytes Relative 24.5 % LAB HEMETOLOGY METHOD 12/21/2024 4:30 PM EDT [facility] Monocytes Relative 15.1 % LAB HEMETOLOGY METHOD 12/21[facility]2024 4[facility] Eosinophils Relative 0.0 % LAB HEMETOLOGY METHOD 12/21/2024 4:30 PM EDT [facility] Basophils Relative 0.4 % LAB HEMETOLOGY METHOD 12/21/2024 4:30 PM EDT [facility] Immature Granulocytes Relative 0.4 % LAB HEMETOLOGY METHOD 12/21/2024 4:30 PM EDT [facility] Neutrophils Absolute 1.46(L) 1.50 - 7.00 K/mcL LAB HEMETOLOGY METHOD 12/21/2024 4:30 PM EDT [facility] Lymphocytes Absolute 0.60(L) 1.00 - 5.00 K/mcL LAB HEMETOLOGY METHOD 12/21/2024 4:30 PM EDT [facility] Monocytes Absolute 0.37 0.20 - 1.00 K/mcL LAB HEMETOLOGY METHOD 12/21/2024 4:30 PM EDT [facility] Eosinophils Absolute 0.00 0.00 - 0.50 K/mcL LAB HEMETOLOGY METHOD 12/21/2024 4:30 PM EDT [facility] Basophils Absolute 0.01 0.00 - 0.20 K/mcL LAB HEMETOLOGY METHOD 12/21/2024 4:30 PM EDT [facility] Immature Granulocytes Absolute 0.01 0.00 - 0.03 K/mcL LAB HEMETOLOGY METHOD 12/21/2024 4:30 PM EDT [facility] Blood Venous blood specimen / Unknown Venipuncture / Unknown 12/21/2024 1:29 PM EDT 12/21/2024 1:29 PM EDT Ana Brizuela MD LAB BLOOD ORDERABLES Lucy l Result [facility] [address] [place] [address], * Chlamydia trachomatis and Neisseria gonorrhoeae molecular study (12/21/2024 1:29 PM EDT) Neisseria gonorrhoeae PCR Negative Negative LAB MOLECULAR DIAGNOSTICS METHOD 12/22/2024 11:05 AM EDT [facility] Chlamydia trachomatis PCR Negative Negative LAB MOLECULAR DIAGNOSTICS METHOD 12/22/2024 11:05 AM EDT [facility] Urine Topography unknown / Unknown Non-blood Collection / Unknown 12/21/2024 1:29 PM EDT 12/21/2024 1:29 PM EDT Ana Brizuela MD LAB MICROBIOLOGY - GENERA L ORDERABLES Final Result [facility] [address] [place] [address], [place] [phone] * (ABNORMAL) Lymphocyte T-cell panel (12/21/2024 1:29 PM EDT) CD4 162(L) 426 - 1,776 cells/mcL 12/25/2024 9:22 AM EDT [facility] CD8 268 161 - 838 cells/mcL 12/25/2024 9:22 AM EDT [facility] CD4/CD8 Ratio 0.60(L) 0.90 - 4.90 12/25/2024 9:22 AM EDT [facility] CD4 % 32(L) 33 - 64 % 12/25/2024 9:22 AM EDT [facility] CD8 % 53(H) 10 - 39 % 12/25/2024 9:22 AM EDT [facility] Blood Venous blood specimen / Unknown Venipuncture / Unknown 12/21/2024 1:29 PM EDT 12/21/2024 1:29 PM EDT Ana Brizuela MD LAB MOLECULAR DIAGNOSTICS ORDERABLES Final Result [facility] [address] [place] [address], [place] [phone] * HIV 1 molecular study quantitative (12/21/2024 1:29 PM EDT) Pathologist [facility] HIV-1 RNA Interpretation Not Detected Not Detected LAB MOLECULAR DIAGNOSTICS METHOD 12/22/2024 2:53 PM EDT [facility] Comment:HIV RNA not detected , unable to report quantitative results. Blood Venous blood specimen / Unknown Venipuncture / Unknown 12/21/2024 1:29 PM EDT 12/21/2024 1:29 PM EDT us Ana Brizuela MD LAB BLOOD ORDERABLES Lucy chu Result [facility] [address] [place] [address], * (ABNORMAL) Comprehensive metabolic panel (12/21/2024 1:29 PM EDT) Sodium 134 133 - 145 mmol/L LAB CHEMISTRY METHOD 12/21/2024 4:38 PM EDT [facility] Potassium 3.5 3.5 - 5.5 mmol/L LAB CHEMISTRY METHOD 12/21/2024 4:38 PM [facility] Chloride 98 96 - 110 mmol/L LAB CHEMISTRY METHOD 12/21/2024 4:38 PM [facility] CO2 32 21 - 32 mmol/L LAB CHEMISTRY METHOD 12/21/2024 4:38 PM [facility] Anion Gap 4 3 - 11 LAB CHEMISTRY METHOD 12/21/2024 4:38 PM [facility] Glucose 125(H) 70 - 100 mg/dL LAB CHEMISTRY METHOD 12/21/2024 4:38 PM [facility] BUN 14 5 - 25 mg/dL LAB CHEMISTRY METHOD 12/21/2024 4:38 PM [facility] Creatinine 0.74 0.50 - 1.10 mg/dL LAB CHEMISTRY METHOD 12/21/2024 4:38 PM [facility] eGFR 88 >=60 mL/min/1. 73m2 LAB CHEMISTRY METHOD 12/21/2024 4:38 PM [facility] Comment:Calculation based on the Chronic Kidney Disease Epidemiology Collaboration (CKD-EPI) equation refit without adjustment for race. BUN/Creatinine Ratio 18.9 LAB CHEMISTRY METHOD 12/21/2024 4:38 PM [facility] Calcium 8.8 8.5 - 10.5 mg/dL LAB CHEMISTRY METHOD 12/21/2024 4:38 PM EDT [facility] AST (SGOT) 34 10 - 42 unit/L LAB CHEMISTRY METHOD 12/21/2024 4:38 PM EDT [facility] ALT (SGPT) 39 10 - 60 unit/L LAB CHEMISTRY METHOD 12/21/2024 4:38 PM EDT [facility] Alkaline Phosphatase 128(H) 42 - 121 unit/L LAB CHEMISTRY METHOD 12/21/2024 4:38 PM EDT [facility] Total Protein 6.9 6.0 - 8.0 g/dL LAB CHEMISTRY METHOD 12/21/2024 4:38 PM EDT [facility] Albumin 3.9 3.2 - 5.0 g/dL LAB CHEMISTRY METHOD [facility]24 [facility] Total Bilirubin 0.7 0.0 - 1.4 mg/dL LAB CHEMISTRY METHOD 12/21/2024 4:38 PM EDT [facility] Blood Venous blood specimen / Unknown Venipuncture / Unknown 12/21/2024 1:29 PM EDT 12/21/2024 1:29 PM EDT us Ana Brizuela MD LAB BLOOD ORDERABLES Lucy chu Result [facility] [address] [place] [address], * (ABNORMAL) Lipid panel with reflex to direct LDL (03/30/2024 10:58 AM EST) Cholesterol 189 0 - 200 mg/dL LAB CHEMISTRY METHOD 03/30/2024 6:01 PM EST [facility] Triglycerides 204(H) 0 - 150 mg/dL LAB CHEMISTRY METHOD 03/30/2024 6:01 PM EST [facility] HDL 52 >=40 mg/dL LAB CHEMISTRY METHOD 03/30/2024 6:01 PM [facility] LDL Calculated 96 0 - 100 mg/dL LAB CHEMISTRY METHOD 03/30/2024 6:01 PM [facility] VLDL Cholesterol Cm 40.8 mg/dL LAB CHEMISTRY METHOD 03/30/2024 6:01 PM [facility] Non HDL Chol. (LDL+VLDL) 137 <145 mg/dL LAB CHEMISTRY METHOD 03/30/2024 6:01 PM [facility] Chol/HDL Ratio 3.6 0.0 - 4.4 LAB CHEMISTRY METHOD 03/30/2024 6:01 PM [facility] Blood Venous blood specimen / Unknown Venipuncture / Unknown 03/30/2024 10:58 AM EST 03/30/2024 10:58 AM EST us Roxana Mendez MD LAB BLOOD ORDERABLES Final Resul t Performing Organization Address City/[facility]/ZIP Co de Phone Number [facility] [address] [place] [address], [place] [phone] * (ABNORMAL) Hemoglobin A1c (03/30/2024 10:58 AM EST) Hemoglobin A1C 6.5(H) <6.5 % LAB CHEMISTRY METHOD 03/30/2024 2:01 PM [facility] Mean Bld Glu Estim. 140 mg/dL LAB CHEMISTRY METHOD 03/30/2024 2:01 PM [facility] Blood Venous blood specimen / Unknown Venipuncture / Unknown 03/30/2024 10:58 AM EST 03/30/2024 10:58 AM EST us Roxana Mendez MD LAB BLOOD ORDERABLES Final Resul t Performing Organization Address City/[facility]/ZIP Co de Phone Number [facility] [address] [place] [address], [place] [phone] * HM Urine Albumin Creatinine Ratio (09/16/2023) Urine Albumin Creatinine Ratio Abstracted Historical Provider HEALTH MAINTENANCE Final Result * Depression Screening (02/20/2023) Depression Screening Abstracted Historical Provider HEALTH MAINTENANCE Final Result * Colonoscopy (10/17/2016) Colonoscopy No INterpretation , Abstracted Anatomical Region Laterality Modality Other Historical Provider HEALTH MAINTENANCE Final Result from Last 3 Months or Most Recently Relevant to Health Maintenance Insurance MEDICAID - [place] [employer] MEDICARE Member Subscriber Plan / Payer (Ef fective 2022-Present) Name:Reba Cisneros Relation to Subscriber:Self Name:Reba Cisneros Payer ID:[id number] Group ID:[id number] Type:Not on file Address: [address] [place] [address] MEDICARE Care Teams Plumbing Contractor Relationship Specialty Start Date End Date Roxana Mendez MD [address] [place] [address] PCP - General Internal Medicine 01/29/1999
--- OUTSIDE RECORDS SUMMARY | 2024-12-25 11:34 | XMS_ITS | Data Portability ---
Author Organization [facility] - WILLIAM ALVAREZ MD [facility], Main Office Address [address] [place] [id number] Assessment Encounter Date Assessment Date Assessment LastModified by Organization Details LastModified Time 01/16/2024 01/16/2024 audio. [facility] 01/16/2024 17:52:41 11/23/2024 11/23/2024 audio. telehealth. 18 min. pt home in [facility] In office in [facility] Not available 11/24/2024 00:20:50 12/17/2024 12/17/2024 audio. telehealth. 17 min[facility] 12/17/2024 09:19:03 Plan of Treatment Reminders Order Date Submit Date Provider Last Modified By Organization Details Last Modified Time Details Appointments TH B20 F/U 2024 09:00A M William Morales MD Not available Not available Not available Lab CBC w/ diff [address] ([facility]), [address] [place], [address], 12/24/2024 09:28:45 HIV-1 RNA, quantita tive, PCR, serum or plasma [address] ([facility]), [address] [place], [address], 12/24/2024 09:28:46 RPR (rapid plasma reagin), serum [address] ([facility]), [address] [place], [address], 12/24/2024 09:28:46 T-cell regulato ry subsets panel, blood [address] ([facility]), [address] [place], [address], 12/24/2024 09:28:46 CMP, serum or plasma 2024 025 [facility] ([facility]), [address] [place], [address], 12/21/2024 16:40:28 hepatiti s C Ab, signal-t o-cutoff , serum or plasma [address] [place] [address] ([facility]), [address] [place], [address], 12/24/2024 09:28:46 HBsAg (hepatit is B surface Ag), EIA, serum [address] [place] [address] ([facility]), [address] [place], [address], 12/24/2024 09:28:46 CT + NG DNA, PCR, unspecif ied specimen [address] [place] [address] ([facility]), [address] [place], [address], 12/24/2024 09:28:46 CBC w/ diff [address] [place] [address] ([facility]), [address] [place], [address], 12/04/2024 11:53:47 electrol ytes panel, blood [address] ([facility]), [address] [place] [address], [address], 12/04/2024 11:53:47 ALT (alanine aminotra nsferase ), serum or plasma [address] [place] [address] ([facility]), [address] [place] [address], [address], 12/04/2024 11:53:47 AST/SGOT (asparta te aminotra nsferase ), serum or plasma [address] [place] [address] ([facility]), [address] [place] [address], [address], 12/04/2024 11:53:47 creatini ne w/ estimate d GFR (eGFR), serum or plasma [address] [place] [address] ([facility]), [address] [place] [address], [address], 12/04/2024 11:53:48 HIV-1 RNA, quantita tive, PCR, serum or plasma [address] [place] [address] ([facility]), [address] [place] [address], [address], 12/04/2024 11:53:48 RPR (rapid plasma reagin), serum [address] [place] [address] ([facility]), [address] [place] [address], [address], 12/04/2024 11:53:48 T-cell regulato ry subsets panel, blood [address] [place] [address] ([facility]), [address] [place], [address], 12/04/2024 11:53:48 CBC w/ diff [address] ([facility]), [address] [place], [address], 01/23/2024 09:21:12 electrol ytes panel, blood [address] ([facility]), [address] [place], [address], 01/23/2024 09:21:12 ALT (alanine aminotra nsferase ), serum or plasma [address] ([facility]), [address] [place], [address], 01/23/2024 09:21:12 AST/SGOT (asparta te aminotra nsferase ), serum or plasma [address] ([facility]), [address] [place], [address], 01/23/2024 09:21:12 creatini ne w/ estimate d GFR (eGFR), serum or plasma [address] ([facility]), [address] [place], [address], 01/23/2024 09:21:12 HIV-1 RNA, quantita tive, PCR, serum or plasma [address] ([facility]), [address] [place], [address], 01/23/2024 09:21:12 RPR (rapid plasma reagin), serum [address] ([facility]), [address] [place], [address], 01/23/2024 09:21:12 T-cell regulato ry subsets panel, blood [address] ([facility]), [address] [place], [address], 01/23/2024 09:21:12 culture, wound [address] ([facility]), [address] [place], [address], 10/15/2023 16:18:24 hepatiti s C liver status biomarke r panel, serum [address] ([facility]), [address] [place], [address], 09/30/2023 11:06:29 T-cell regulato ry subsets panel, blood 2023 024 [facility] ([facility]), [address] [place], [address], 09/23/2023 11:54:11 Referral None recorded . Procedures None recorded . Surgeries None recorded . Imaging None recorded . Medication Orders bupropio n HCl XL 150 mg 24 hr tablet, extended release 2024 025 [facility][id number], [address] [place] [address], [id number], 12/17/2024 09:21:39 Symtuza 800 mg-150 mg-200 mg-10 mg tablet 2024 025 [facility] #85999, [address], [place], [id number], 12/17/2024 09:21:43 Zyrtec 10 mg tablet 2024 [facility] #64322, [address] [place] [address], [id number], 11/23/2024 15:30:51 bupropio n HCl XL 150 mg 24 hr tablet, extended release 2024 [facility] #74947, [address] [place] [address], [id number], 11/23/2024 15:28:40 Symtuza 800 mg-150 mg-200 mg-10 mg tablet 2024 025 [facility] #36849, [address] [place] [address], [id number], 11/23/2024 15:28:43 bupropio n HCl XL 150 mg 24 hr tablet, extended release 2023 024 [facility] #45192, [address] [place] [address], [id number], 01/16/2024 17:58:19 Symtuza 800 mg-150 mg-200 mg-10 mg tablet 2023 024 [facility] #47465, [address] [place] [address], [id number], 01/16/2024 17:58:19 doxycycl ine hyclate 100 mg capsule 2023 [facility] #24421, [address] [place] [address], [id number], 10/15/2023 15:17:14 Serostim 4 mg subcutan eous solution 2023 [facility], [address] [place] [address] [place], [address], 10/15/2023 16:22:42 bupropio n HCl XL 150 mg 24 hr tablet, extended release 2023 [facility] #86290, [address] [place] [address], [id number], 10/15/2023 15:00:11 Symtuza 800 mg-150 mg-200 mg-10 mg tablet 2023 [facility] #66729, [address] [place] [address], [id number], 10/15/2023 15:00:11 ferrous sulfate 325 mg (65 mg iron) tablet 2023 [facility] #23194, [address] [place] [address], [id number], 10/15/2023 15:00:08 bupropio n HCl XL 150 mg 24 hr tablet, extended release 2023 [facility] #89711, [address] [place] [address], [id number], 09/23/2023 11:48:50 Symtuza 800 mg-150 mg-200 mg-10 mg tablet 2023 [facility] #72778, [address] [place] [address], [id number], 09/23/2023 11:48:51 Patient TargetsNo targets recorded. Patient InstructionsNo instructions recorded. Reason for Referral None Reported. Results Created Date Observation Date Name Description Value Unit Range Abnormal Flag Note LastModifiedBy Organization Detail LastModifiedTime 09/16/1909/16/2023 CREAT ININE WITH GFR creat 0.61 mg/dL 0.5-1. 1 Not Available [facility] [address] [place], [address], 09/16/2023 14:47:16 09/16/19 24 09/16/2023 CREAT ININE WITH GFR glomerular filtration rate 97 >60 This eGFR resul t was calcu lated using the CKD-E PI 2020 Creat inine Equat ion Not Available [facility] [address] [place], [address], 09/16/2023 14:47:16 09/16/19 24 09/16/2023 ELECT ROLYT ES sodium 137 mEq/L 135-14 5 Not Available [facility] [address] [place], [address], 09/16/2023 14:47:17 09/16/19 24 09/16/2023 ELECT ROLYT ES potassium 4.6 mmol/ L 3.5-5. 5 Not Available [facility] [address] [place], [address], 09/16/2023 14:47:17 09/16/19 24 09/16/2023 ELECT ROLYT ES chloride 102 mmol/ L 96-110 Not Available [facility] [address] [place], [address], 09/16/2023 14:47:17 09/16/19 24 09/16/2023 ELECT ROLYT ES CO2 32 mmol/ L 21-32 Not Available [facility] [address] [place], [address], 09/16/2023 14:47:17 09/16/19 24 09/16/2023 ELECT ROLYT ES anion gap 3 3-11 Not Available [facility] [address] [place], [address], 09/16/2023 14:47:17 09/16/19 24 09/16/2023 ELECT ROLYT ES performing lab [facility] [address] [facility] [place] [address] Medic al Direc nando staley MD Not Available [facility] [address] [place], [address], 09/16/2023 14:47:17 09/16/19 24 09/16/2023 SGOT SGOT 20 U/L 10-42 Not Available [facility] [address] [place], [address], 09/16/2023 14:53:21 09/16/19 24 09/16/2023 SGPT SGPT 27 U/L 10-60 Not Available [facility] [address] [place], [address], 09/16/2023 14:53:21 09/16/19 24 09/16/2023 SGPT performing lab [facility], [facility] [address] [facility] [place] [address] Medic al [facility] nando staley MD Not Available [facility] [address] [place], [address], 09/16/2023 14:53:21 09/16/19 24 09/16/2023 CBC WITH AUTO DIFF WBC 2.5 x10-3 /uL 4.8-10 .8 low Not Available [facility] [address] [place], [address], 09/16/2023 14:57:20 09/16/19 24 09/16/2023 CBC WITH AUTO DIFF RBC 3.2 x10-6 /uL 3.8-4. 8 low Not Available [facility] [address] [place], [address], 09/16/2023 14:57:20 09/16/19 24 09/16/2023 CBC WITH AUTO DIFF hemoglobin 10.5 g/dL 11.5-1 6.0 low Not Available [facility] [address] [place], [address], 09/16/2023 14:57:20 09/16/19 24 09/16/2023 CBC WITH AUTO DIFF hematocrit 32.5 % 35-47 low Not Available [facility] [address] [place], [address], 09/16/2023 14:57:20 09/16/19 24 09/16/2023 CBC WITH AUTO DIFF MCV 100.3 fL 79-98 high Not Available [facility] [address] [place], [address], 09/16/2023 14:57:20 09/16/19 24 09/16/2023 CBC WITH AUTO DIFF MCH 32.4 pg 27-32 high Not Available [facility] [address] [place], [address], 09/16/2023 14:57:20 09/16/19 24 09/16/2023 CBC WITH AUTO DIFF MCHC 32.3 g/dL 32-37 Not Available [facility] [address] [place], [address], 09/16/2023 14:57:20 09/16/19 24 09/16/2023 CBC WITH AUTO DIFF RDW 13.5 % 11-15 Not Available [facility] [address] [place], [address], 09/16/2023 14:57:20 09/16/19 24 09/16/2023 CBC WITH AUTO DIFF plt count 170 x10-3 /uL 130-40 0 Not Available [facility] [address] [place], [address], 09/16/2023 14:57:20 09/16/19 24 09/16/2023 CBC WITH AUTO DIFF mean platelet volume 10.2 fL 7-11 Not Available [facility] [address] [place], [address], 09/16/2023 14:57:20 09/16/19 24 09/16/2023 CBC WITH AUTO DIFF NRBC % auto 0.0 % <1 Not Available [facility] [address] [place], [address], 09/16/2023 14:57:20 09/16/19 24 09/16/2023 CBC WITH AUTO DIFF neut % 61.7 % Not Available [facility] [address] [place], [address], 09/16/2023 14:57:20 09/16/19 24 09/16/2023 CBC WITH AUTO DIFF lymph % 23.9 % Not Available [facility] [address] [place], [address], 09/16/2023 14:57:20 09/16/19 24 09/16/2023 CBC WITH AUTO DIFF mono % 8.8 % Not Available [facility] [address] [place], [address], 09/16/2023 14:57:20 09/16/19 24 09/16/2023 CBC WITH AUTO DIFF eos % 4.0 % Not Available [facility] [address] [place], [address], 09/16/2023 14:57:20 09/16/19 24 09/16/2023 CBC WITH AUTO DIFF baso % 0.4 % Not Available [facility] [address] [place], [address], 09/16/2023 14:57:20 09/16/19 24 09/16/2023 CBC WITH AUTO DIFF immature granulocytes % 1.2 % Not Available [facility] [address] [place], [address], 09/16/2023 14:57:20 09/16/19 24 09/16/2023 CBC WITH AUTO DIFF NRBC # auto 0.00 x10-3 /uL <0.1 Not Available [facility] [address] [place], [address], 09/16/2023 14:57:20 09/16/19 24 09/16/2023 CBC WITH AUTO DIFF absolute neut 1.55 x10-3 /uL 1.5-7. 0 Not Available [facility] [address] [place], [address], 09/16/2023 14:57:20 09/16/19 24 09/16/2023 CBC WITH AUTO DIFF lymph # 0.60 x10-3 /uL 1-5.0 low Not Available [facility] [address] [place] [address], [address], 09/16/2023 14:57:20 09/16/19 24 09/16/2023 CBC WITH AUTO DIFF mono # 0.22 x10-3 /uL 0.2-1. 0 Not Available [facility] [address] [place] [address], [address], 09/16/2023 14:57:20 09/16/19 24 09/16/2023 CBC WITH AUTO DIFF eos # 0.10 x10-3 /uL 0-0.5 Not Available [facility] [address] [place] [address], [address], 09/16/2023 14:57:20 09/16/19 24 09/16/2023 CBC WITH AUTO DIFF baso # 0.01 x10-3 /uL 0-0.2 Not Available [facility] [address] [place] [address], [address], 09/16/2023 14:57:20 09/16/19 24 09/16/2023 CBC WITH AUTO DIFF immature granulocytes # 0.03 x10-3 /uL 0-0.03 Not Available [facility] [address] [place] [address], [address], 09/16/2023 14:57:20 09/16/19 24 09/16/2023 CBC WITH AUTO DIFF performing lab [facility] [address] [place] [address] Medic al Direc nando staley MD Not Available [facility] [address] [place] [address], [address], 09/16/2023 14:57:20 09/16/19 24 09/16/2023 HEPAT ITIS B SURFA CE ANTIG EN hepatitis B surface antigen NEGATI VE negati ve Over the count er suppl ement s conta ining high doses of bioti n may inter fere with this assay . If inter feren ce is suspe cted, patie nts shoud be retes wayne after refra ining from bioti n suppl ement s for 72 hours . Not Available [facility] [address] [place] [address], [address], 09/16/2023 15:07:21 09/16/19 24 09/16/2023 HEPAT ITIS B SURFA CE ANTIG EN performing lab [facility] [address] [place] [address] Medic al Direc nando staley MD Not Available [facility] [address] [place] [address], [address], 09/16/2023 15:07:21 09/16/19 24 09/16/2023 HEPAT ITIS C VIRUS DIAGN OSTIC hepatitis C virus diagnostic NEGATI VE negati ve Not Available [facility] [address] [place] [address], [address], 09/16/2023 15:34:26 09/16/19 24 09/16/2023 HEPAT ITIS C VIRUS DIAGN OSTIC performing lab [facility] [address] [place] [address] Medic al Direc nando staley MD Not Available [facility] [address] [place] [address], [address], 09/16/2023 15:34:26 09/16/19 24 09/17/2023 HIV VIRAL LOAD HIV viral load qual DETECT ED not detect . abnormal HIV RNA detec wayne, but <20 copie s/mL Not Available [facility] [address] [place] [address], [address], 09/17/2023 09:38:12 09/16/19 24 09/17/2023 HIV VIRAL LOAD HIV viral load quant < 20 <20 Not Available [facility] [address] [place] [address], [address], 09/17/2023 09:38:12 09/16/19 24 09/17/2023 HIV VIRAL LOAD HIV viral load log < 1.30 <1.30 Not Available [facility] [address] [place], [address], 09/17/2023 09:38:12 09/16/19 24 09/17/2023 HIV VIRAL LOAD performing lab [facility] abnormal [facility] lynn [facility] of [facility] [address] [facility] [place] [address] Medic al Dire nando staley MD Not Available [facility] [address] [place], [address], 09/17/2023 09:38:12 09/16/19 24 09/17/2023 CHLAM YDIA DNA URINE chlamydia DNA urine NEGATI VE negati ve Not Available [facility] [address] [place] [address], [address], 09/17/2023 10:31:15 09/16/19 24 09/17/2023 GC DNA URINE GC DNA urine NEGATI VE negati ve Not Available [facility] [address] [place] [address], [address], 09/17/2023 10:31:15 09/16/19 24 09/17/2023 GC DNA URINE performing lab [facility]ynn [facility] [address] [facility] [place] [address] Medic al Dire nando staley MD Not Available [facility] [address] [place], [address], 09/17/2023 10:31:15 09/16/19 24 09/17/2023 TREPO NEMAL AB treponemal Ab NEGATI VE negati ve Not Available [facility] [address] [place] [address], [address], 09/17/2023 16:25:00 09/16/19 24 09/18/2023 QUANT IFERO N PLUS qft plus interpretati on NEGATI VE negati ve Not Available [facility] [address] [place], [address], 09/18/2023 13:35:27 09/16/19 24 09/18/2023 QUANT IFERO N PLUS qft plus interpretati on NEGATI VE negati ve Not Available [facility] [address] [place], [address], 09/18/2023 14:34:30 09/16/19 24 09/18/2023 T4T8 PANEL percent cd3 91 % 55-86 high Not Available [facility] [address] [place], [address], 09/18/2023 14:34:31 09/16/19 24 09/18/2023 T4T8 PANEL absolute cd3 565 cell/ uL 704-21 38 low Not Available [facility] [address] [place], [address], 09/18/2023 14:34:31 09/16/19 24 09/18/2023 T4T8 PANEL percent cd8 56 % 9-37 high Not Available [facility] [address] [place], [address], 09/18/2023 14:34:31 09/16/19 24 09/18/2023 T4T8 PANEL absolute cd8 350 cell/ uL 190-83 2 Not Available [facility] [address] [place], [address], 09/18/2023 14:34:31 09/16/19 24 09/18/2023 T4T8 PANEL percent cd4 30 % 35-66 low Not Available [facility] [address] [place], [address], 09/18/2023 14:34:31 09/16/19 24 09/18/2023 T4T8 PANEL absolute cd4 188 cell/ uL 443-14 71 low Not Available [facility] [address] [place] [address], [address], 09/18/2023 14:34:31 09/16/19 24 09/18/2023 T4T8 PANEL percent cd19 4 % 4-25 Not Available [facility] [address] [place], [address], 09/18/2023 14:34:31 09/16/19 24 09/18/2023 T4T8 PANEL absolute cd19 22 cell/ uL 100-52 4 low Not Available [facility] [address] [place] [address], [address], 09/18/2023 14:34:31 09/16/19 24 09/18/2023 T4T8 PANEL cd4 cd8 ratio 0.5 1.0-3. 7 low Test perfo rmed at [facility] , [address], [place] [address] [phone] Not Available [facility] [address] [place] [address], [address], 09/18/2023 14:34:31 09/16/19 24 09/18/2023 T4T8 PANEL percent cd56 5 % 3-24 Not Available [facility] [address] [place], [address], 09/18/2023 14:34:31 09/16/19 24 09/18/2023 T4T8 PANEL absolute cd56 33 cell/ uL 60-500 low Not Available [facility] [address] [place] [address], [address], 09/18/2023 14:34:31 10/15/19 24 10/15/2023 WOUND CULTU RE performing lab [facility], a [facility] r of [facility] [address] [facility] [place] [address] Medic al Direc nando staley MD Not Available [facility] [address] [place] [address], [address], 11/11/2023 08:02:27 10/15/19 24 10/18/2023 WOUND CULTU RE wound culture FINAL : No patho gens noted SKIN COCO NOTED GRAM STAIN RESUL T NO POLYS NOTED NO EPITH ELIAL CELLS NOTED FEW GRAM NEGAT CORNELIA BACIL LI FEW GRAM POSIT CORNELIA COCCI IN PAIRS Not Available [facility] [address] [place], [address], 11/11/2023 08:02:27 10/15/19 24 10/15/2023 FUNGU S CULTU RE,OT HER performing lab [facility], a [facility] r of [facility] [address] [facility] [place] [address] Medic al Direc nando staley MD Not Available [facility] [address] [place], [address], 11/11/2023 08:02:30 10/15/19 24 11/11/2023 FUNGU S CULTU RE,OT HER fungus culture,othe r Negati ve for Fungus after 4 weeks Not Available [facility] [address] [place] [address], [address], 11/11/2023 08:02:30 03/30/20 24 03/30/2024 CBC WITH AUTO DIFFE RENTI AL WBC 3.6 K/mcL 4.8-10 .8 low Not Available [facility] [address] [place] [address], [address], 03/30/2024 12:58:12 03/30/20 24 03/30/2024 CBC WITH AUTO DIFFE RENTI AL RBC 4.30 M/mcL 3.80-4 .80 Not Available [facility] [address] [place] [address], [address], 03/30/2024 12:58:12 03/30/20 24 03/30/2024 CBC WITH AUTO DIFFE RENTI AL hemoglobin 13.6 g/dL 11.5-1 6.0 Not Available [facility] [address] [place] [address], [address], 03/30/2024 12:58:12 03/30/20 24 03/30/2024 CBC WITH AUTO DIFFE RENTI AL hematocrit 41.7 % 35.0-4 7.0 Not Available [facility] [address] [place] [address], [address], 03/30/2024 12:58:12 03/30/20 24 03/30/2024 CBC WITH AUTO DIFFE RENTI AL MCV 97.0 fL 79.0-9 8.0 Not Available [facility] [address] [place], [address], 03/30/2024 12:58:12 03/30/20 24 03/30/2024 CBC WITH AUTO DIFFE RENTI AL MCH 31.6 pcg 27.0-3 2.0 Not Available [facility] [address] [place], [address], 03/30/2024 12:58:12 03/30/20 24 03/30/2024 CBC WITH AUTO DIFFE RENTI AL MCHC 32.6 g/dL 32.0-3 7.0 Not Available [facility] [address] [place], [address], 03/30/2024 12:58:12 03/30/20 24 03/30/2024 CBC WITH AUTO DIFFE RENTI AL RDW 12.2 % 11.0-1 5.0 Not Available [facility] [address] [place], [address], 03/30/2024 12:58:12 03/30/20 24 03/30/2024 CBC WITH AUTO DIFFE RENTI AL platelets 142 K/mcL 130-40 0 Not Available [facility] [address] [place], [address], 03/30/2024 12:58:12 03/30/20 24 03/30/2024 CBC WITH AUTO DIFFE RENTI AL MPV 10.7 fL 7.0-11 .0 Not Available [facility] [address] [place], [address], 03/30/2024 12:58:12 03/30/20 24 03/30/2024 CBC WITH AUTO DIFFE RENTI AL NRBC 0.0 % <1.0 Not Available [facility] [address] [place], [address], 03/30/2024 12:58:12 03/30/20 24 03/30/2024 CBC WITH AUTO DIFFE RENTI AL NRBC absolute 0.00 K/mcL <0.10 Not Available [facility] [address] [place], [address], 03/30/2024 12:58:12 03/30/20 24 03/30/2024 CBC WITH AUTO DIFFE RENTI AL neutrophils relative 63.2 % Not Available [facility] [address] [place], [address], 03/30/2024 12:58:12 03/30/20 24 03/30/2024 CBC WITH AUTO DIFFE RENTI AL lymphocytes relative 23.9 % Not Available [facility] [address] [place], [address], 03/30/2024 12:58:12 03/30/20 24 03/30/2024 CBC WITH AUTO DIFFE RENTI AL monocytes relative 7.7 % Not Available [facility] [address] [place], [address], 03/30/2024 12:58:12 03/30/20 24 03/30/2024 CBC WITH AUTO DIFFE RENTI AL eosinophils relative 3.6 % Not Available [facility] [address] [place], [address], 03/30/2024 12:58:12 03/30/20 24 03/30/2024 CBC WITH AUTO DIFFE RENTI AL basophils relative 1.1 % Not Available [facility] [address] [place], [address], 03/30/2024 12:58:12 03/30/20 24 03/30/2024 CBC WITH AUTO DIFFE RENTI AL immature granulocytes relative 0.5 % Not Available [facility] [address] [place], [address], 03/30/2024 12:58:12 03/30/20 24 03/30/2024 CBC WITH AUTO DIFFE RENTI AL neutrophils absolute 2.30 K/mcL 1.50-7 .00 Not Available [facility] [address] [place], [address], 03/30/2024 12:58:12 03/30/20 24 03/30/2024 CBC WITH AUTO DIFFE RENTI AL lymphocytes absolute 0.87 K/mcL 1.00-5 .00 low Not Available [facility] [address] [place] [address], [address], 03/30/2024 12:58:12 03/30/20 24 03/30/2024 CBC WITH AUTO DIFFE RENTI AL monocytes absolute 0.28 K/mcL 0.20-1 .00 Not Available [facility] [address] [place] [address], 45562, 03/30/2024 12:58:12 03/30/20 24 03/30/2024 CBC WITH AUTO DIFFE RENTI AL eosinophils absolute 0.13 K/mcL 0.00-0 .50 Not Available [facility] [address] [place] [address], 97285, 03/30/2024 12:58:12 03/30/20 24 03/30/2024 CBC WITH AUTO DIFFE RENTI AL basophils absolute 0.04 K/mcL 0.00-0 .20 Not Available [facility] [address] [place] [address], 81736, 03/30/2024 12:58:12 03/30/20 24 03/30/2024 CBC WITH AUTO DIFFE RENTI AL immature granulocytes absolute 0.02 K/mcL 0.00-0 .03 Not Available [facility] [address] [place] [address], 12686, 03/30/2024 12:58:12 03/30/20 24 03/30/2024 CBC WITH AUTO DIFFE RENTI AL note See Report [facility], [address] [facility], [place] mungu[place], [place] [id number] Not Available [facility] [address] [place] [address], 87[address], 03/30/2024 12:58:12 03/30/20 24 03/30/2024 CREAT ININE creatinine 0.69 mg/dL 0.50-1 .10 Not Available [facility] [address] [place], [address], 03/30/2024 17:56:47 03/30/20 24 03/30/2024 CREAT ININE eGFR 95 mL/mi n/1.7 3m2 >=60 Calcu latio n based on the Chron ic Kidne y Disea se Epide miolo gy Colla borat ion (CKD- EPI) equat ion refit witho ut adjus tment for race. Not Available [facility] [address] [place] [address], 34[address], 03/30/2024 17:56:47 03/30/20 24 03/30/2024 CREAT ININE note See Report [facility], [address] [place] [address], Hansa schwab d, [place] [id number] Not Available [facility] [address] [place] [address], 89[address], 03/30/2024 17:56:47 03/30/20 24 03/30/2024 ELECT ROLYT E PANEL sodium 138 mmol/ L 133-14 5 Not Available [facility] [address] [place] [address], 39892, 03/30/2024 18:02:50 03/30/20 24 03/30/2024 ELECT ROLYT E PANEL potassium 4.1 mmol/ L 3.5-5. 5 Not Available [facility] [address] [place] [address], 35841, 03/30/2024 18:02:50 03/30/20 24 03/30/2024 ELECT ROLYT E PANEL chloride 102 mmol/ L 96-110 Not Available [facility] [address] [place] [address], 50057, 03/30/2024 18:02:50 03/30/20 24 03/30/2024 ELECT ROLYT E PANEL CO2 33 mmol/ L 21-32 high Not Available [facility] [address] [place] [address], 988[address], 03/30/2024 18:02:50 03/30/20 24 03/30/2024 ELECT ROLYT E PANEL anion gap 3 3-11 Not Available [facility] [address] [place], [address], 03/30/2024 18:02:50 03/30/20 24 03/30/2024 ELECT ROLYT E PANEL note See Report [facility], [address] [facility], [place]a dysoniel d, [place] [id number] Not Available [facility] [address] [place], [address], 03/30/2024 18:02:50 03/30/20 24 03/30/2024 TREPO NEMA PALLI DUM ANTIB DAGO WITH REFLE X TO RPR AND PARTI SANDRA AGGLU TINAT ION T. pallidum antibodies Negati ve negati ve Not Available [facility] [address] [place] [address], 512[address], 03/30/2024 18:09:53 03/30/20 24 03/30/2024 TREPO NEMA PALLI DUM ANTIB DAGO WITH REFLE X TO RPR AND PARTI SANDRA AGGLU TINAT ION note See Report [facility], [address] [facility], Hans[place] schwab d, [facility] [place] [place] [id number] Not Available [facility] [address] [place], [address], 03/30/2024 18:09:53 03/30/20 24 03/30/2024 HIV 1 MOLEC ULAR STUDY QUANT ITATI VE HIV-1 RNA interpretati on Not Detect ed not detect ed HIV RNA not detec wayne, unabl e to repor t quant itati ve resul ts. Not Available [facility] [address] [place], [address], 03/31/2024 11:57:02 03/30/20 24 03/30/2024 HIV 1 MOLEC ULAR STUDY QUANT ITATI VE note See Report [facility], [address] [facility], Hansa dysoniel d, [facility] [place] [place] [id number] Not Available [facility] [address] [place], [address], 03/31/2024 11:57:02 03/30/20 24 03/30/2024 LYMPH OCYTE T-OMI L PANEL cd4 292 cells /mcL 426-17 76 low Not Available [facility] [address] [place] [address], 83011, 03/31/2024 12:28:06 03/30/20 24 03/30/2024 LYMPH OCYTE T-OMI L PANEL cd8 452 cells /mcL 161-83 8 Not Available [facility] [address] [place] [address], 36758, 03/31/2024 12:28:06 03/30/20 24 03/30/2024 LYMPH OCYTE T-OMI L PANEL cd4/cd8 ratio 0.65 0.90-4 .90 low Not Available [facility] [address] [place] [address], 52405, 03/31/2024 12:28:06 03/30/20 24 03/30/2024 LYMPH OCYTE T-OMI L PANEL cd4 % 34 % 33-64 Not Available [facility] [address] [place] [address], 083[address], 03/31/2024 12:28:06 03/30/20 24 03/30/2024 LYMPH OCYTE T-OMI L PANEL cd8 % 52 % 10-39 high Not Available [facility] [address] [place] [address], 6[address], 03/31/2024 12:28:06 03/30/20 24 03/30/2024 LYMPH OCYTE T-OMI L PANEL note See Report [facility], [address] [facility], Hansa schwab d, [place] [address] Not Available [facility] [address] [place] [address], 612[address], 03/31/2024 12:28:06 12/22/19 25 12/21/2024 CBC WITH AUTO DIFFE RENTI AL WBC 2.5 K/mcL 4.8-10 .8 low Not Available [facility] [address] [place] [address], 25694, 12/21/2024 16:31:22 12/22/19 25 12/21/2024 CBC WITH AUTO DIFFE RENTI AL RBC 3.90 M/mcL 3.80-4 .80 Not Available [facility] [address] [place], [address], 12/21/2024 16:31:22 12/22/19 25 12/21/2024 CBC WITH AUTO DIFFE RENTI AL hemoglobin 12.6 g/dL 11.5-1 6.0 Not Available [facility] [address] [place], [address], 12/21/2024 16:31:22 12/22/19 25 12/21/2024 CBC WITH AUTO DIFFE RENTI AL hematocrit 38.3 % 35.0-4 7.0 Not Available [facility] [address] [place], [address], 12/21/2024 16:31:22 12/22/19 25 12/21/2024 CBC WITH AUTO DIFFE RENTI AL MCV 97.2 fL 79.0-9 8.0 Not Available [facility] [address] [place], [address], 12/21/2024 16:31:22 12/22/19 25 12/21/2024 CBC WITH AUTO DIFFE RENTI AL MCH 32.0 pcg 27.0-3 2.0 Not Available [facility] [address] [place], [address], 12/21/2024 16:31:22 12/22/19 25 12/21/2024 CBC WITH AUTO DIFFE RENTI AL MCHC 32.9 g/dL 32.0-3 7.0 Not Available [facility] [address] [place], [address], 12/21/2024 16:31:22 12/22/19 25 12/21/2024 CBC WITH AUTO DIFFE RENTI AL RDW 12.2 % 11.0-1 5.0 Not Available [facility] [address] [place], [address], 12/21/2024 16:31:22 12/22/19 25 12/21/2024 CBC WITH AUTO DIFFE RENTI AL platelets 140 K/mcL 130-40 0 Not Available [facility] [address] [place], [address], 12/21/2024 16:31:22 12/22/19 25 12/21/2024 CBC WITH AUTO DIFFE RENTI AL MPV 9.8 fL 7.0-11 .0 Not Available [facility] [address] [place], [address], 12/21/2024 16:31:22 12/22/19 25 12/21/2024 CBC WITH AUTO DIFFE RENTI AL NRBC 0.0 % <1.0 Not Available [facility] [address] [place], [address], 12/21/2024 16:31:22 12/22/19 25 12/21/2024 CBC WITH AUTO DIFFE RENTI AL NRBC absolute 0.00 K/mcL <0.10 Not Available [facility] [address] [place], [address], 12/21/2024 16:31:22 12/22/19 25 12/21/2024 CBC WITH AUTO DIFFE RENTI AL neutrophils relative 59.6 % Not Available [facility] [address] [place], [address], 12/21/2024 16:31:22 12/22/19 25 12/21/2024 CBC WITH AUTO DIFFE RENTI AL lymphocytes relative 24.5 % Not Available [facility] [address] [place], [address], 12/21/2024 16:31:22 12/22/19 25 12/21/2024 CBC WITH AUTO DIFFE RENTI AL monocytes relative 15.1 % Not Available [facility] [address] [place], [address], 12/21/2024 16:31:22 12/22/19 25 12/21/2024 CBC WITH AUTO DIFFE RENTI AL eosinophils relative 0.0 % Not Available [facility] [address] [place], [address], 12/21/2024 16:31:22 12/22/19 25 12/21/2024 CBC WITH AUTO DIFFE RENTI AL basophils relative 0.4 % Not Available [facility] [address] [place], [address], 12/21/2024 16:31:22 12/22/19 25 12/21/2024 CBC WITH AUTO DIFFE RENTI AL immature granulocytes relative 0.4 % Not Available [facility] [address] [place], [address], 12/21/2024 16:31:22 12/22/19 25 12/21/2024 CBC WITH AUTO DIFFE RENTI AL neutrophils absolute 1.46 K/mcL 1.50-7 .00 low Not Available [facility] [address] [place], [address], 12/21/2024 16:31:22 12/22/19 25 12/21/2024 CBC WITH AUTO DIFFE RENTI AL lymphocytes absolute 0.60 K/mcL 1.00-5 .00 low Not Available [facility] [address] [place], [address], 12/21/2024 16:31:22 12/22/19 25 12/21/2024 CBC WITH AUTO DIFFE RENTI AL monocytes absolute 0.37 K/mcL 0.20-1 .00 Not Available [facility] [address] [place], [address], 12/21/2024 16:31:22 12/22/19 25 12/21/2024 CBC WITH AUTO DIFFE RENTI AL eosinophils absolute 0.00 K/mcL 0.00-0 .50 Not Available [facility] [address] [place], [address], 12/21/2024 16:31:22 12/22/19 25 12/21/2024 CBC WITH AUTO DIFFE RENTI AL basophils absolute 0.01 K/mcL 0.00-0 .20 Not Available [facility] [address] [place], [address], 12/21/2024 16:31:22 12/22/19 25 12/21/2024 CBC WITH AUTO DIFFE RENTI AL immature granulocytes absolute 0.01 K/mcL 0.00-0 .03 Not Available [facility] [address] [place], [address], 12/21/2024 16:31:22 12/22/19 25 12/21/2024 CBC WITH AUTO DIFFE RENTI AL note See Report [facility], [address] [facility], lÁvaroin gfiel d, [place] [id number] Not Available [facility] [address] [place], [address], 12/21/2024 16:31:22 12/22/19 25 12/21/2024 COMPR EHENS CORNELIA METAB OLIC PANEL sodium 134 mmol/ L 133-14 5 Not Available [facility] [address] [place], [address], 12/21/2024 16:40:27 12/22/19 25 12/21/2024 COMPR EHENS CORNELIA METAB OLIC PANEL potassium 3.5 mmol/ L 3.5-5. 5 Not Available [facility] [address] [place], [address], 12/21/2024 16:40:27 12/22/19 25 12/21/2024 COMPR EHENS CORNELIA METAB OLIC PANEL chloride 98 mmol/ L 96-110 Not Available [facility] [address] [place], [address], 12/21/2024 16:40:27 12/22/19 25 12/21/2024 COMPR EHENS CORNELIA METAB OLIC PANEL CO2 32 mmol/ L 21-32 Not Available [facility] [address] [place], [address], 12/21/2024 16:40:27 12/22/19 25 12/21/2024 COMPR EHENS CORNELIA METAB OLIC PANEL anion gap 4 3-11 Not Available [facility] [address] [place], [address], 12/21/2024 16:40:27 12/22/19 25 12/21/2024 COMPR EHENS CORNELIA METAB OLIC PANEL glucose 125 mg/dL 70-100 high Not Available [facility] [address] [place], [address], 12/21/2024 16:40:27 12/22/19 25 12/21/2024 COMPR EHENS CORNELIA METAB OLIC PANEL BUN 14 mg/dL 5-25 Not Available [facility] [address] [place], [address], 12/21/2024 16:40:27 12/22/19 25 12/21/2024 COMPR EHENS CORNELIA METAB OLIC PANEL creatinine 0.74 mg/dL 0.50-1 .10 Not Available [facility] [address] [place], [address], 12/21/2024 16:40:27 12/22/19 25 12/21/2024 COMPR EHENS CORNELIA METAB OLIC PANEL eGFR 88 mL/mi n/1.7 3m2 >=60 Calcu latio n based on the Chron ic Kidne y Disea se Epide miolo gy Colla borat ion (CKD- EPI) equat ion refit witho ut adjus tment for race. Not Available [facility] [address] [place], [address], 12/21/2024 16:40:27 12/22/1912/21/2024 COMPR EHENS CORNELIA METAB OLIC PANEL BUN/creatini ne ratio 18.9 Not Available [facility] [address] [place], [address], 12/21/2024 16:40:27 12/22/19 25 12/21/2024 COMPR EHENS CORNELIA METAB OLIC PANEL calcium 8.8 mg/dL 8.5-10 .5 Not Available [facility] [address] [place], [address], 12/21/2024 16:40:27 12/22/19 25 12/21/2024 COMPR EHENS CORNELIA METAB OLIC PANEL AST (SGOT) 34 unit/ L 10-42 Not Available [facility] [address] [place], [address], 12/21/2024 16:40:27 12/22/19 25 12/21/2024 COMPR EHENS CORNELIA METAB OLIC PANEL ALT (SGPT) 39 unit/ L 10-60 Not Available [facility] [address] [place], [address], 12/21/2024 16:40:27 12/22/19 25 12/21/2024 COMPR EHENS CORNELIA METAB OLIC PANEL alkaline phosphatase 128 unit/ L 42-121 high Not Available [facility] [address] [place], [address], 12/21/2024 16:40:27 12/22/19 25 12/21/2024 COMPR EHENS CORNELIA METAB OLIC PANEL total protein 6.9 g/dL 6.0-8. 0 Not Available [facility] [address] [place] [address], [address], 12/21/2024 16:40:27 12/22/19 25 12/21/2024 COMPR EHENS CORNELIA METAB OLIC PANEL albumin 3.9 g/dL 3.2-5. 0 Not Available [facility] [address] [place], [address], 12/21/2024 16:40:27 12/22/19 25 12/21/2024 COMPR EHENS CORNELIA METAB OLIC PANEL total bilirubin 0.7 mg/dL 0.0-1. 4 Not Available [facility] [address] [place] [address], [address], 12/21/2024 16:40:27 12/22/19 25 12/21/2024 COMPR EHENS CORNELIA METAB OLIC PANEL note See Report [facility], [address] [facility], [place] schwab [place], [place] [address] Not Available [facility] [address] [place], [address], 12/21/2024 16:40:27 12/22/19 25 12/21/2024 HEPAT ITIS B SURFA CE ANTIG EN WITH REFLE X TO CONFI RMATI ON hepatitis B surface Ag Negati ve negati ve Not Available [facility] [address] [place], [address], 12/21/2024 17:34:43 12/22/19 25 12/21/2024 HEPAT ITIS B SURFA CE ANTIG EN WITH REFLE X TO CONFI RMATI ON note See Report [facility], [address] [facility], [place]a dysoniel d, [place] [address] Not Available [facility] [address] [place], [address], 12/21/2024 17:34:43 12/22/19 25 12/21/2024 TREPO NEMA PALLI DUM ANTIB DAGO WITH REFLE X TO RPR AND PARTI SANDRA AGGLU TINAT ION T. pallidum antibodies Negati ve negati ve Not Available [facility] [address] [place] [address], [address], 12/21/2024 17:34:45 12/22/19 25 12/21/2024 TREPO NEMA PALLI DUM ANTIB DAGO WITH REFLE X TO RPR AND PARTI SANDRA AGGLU TINAT ION note See Report [facility], [address] [facility], [place] dysoniel d, [facility] [address] Not Available [facility] [address] [place], [address], 12/21/2024 17:34:45 12/22/19 25 12/21/2024 HEPAT ITIS C ANTIB DAGO hepatitis C antibody Negati ve negati ve Not Available [facility] [address] [place], [address], 12/21/2024 18:03:47 12/22/19 25 12/21/2024 HEPAT ITIS C ANTIB DAGO note See Report [facility], [address] [facility], [facility] [address] Not Available [facility] [address] [place], [address], 12/21/2024 18:03:47 12/22/19 25 12/21/2024 CHLAM YDIA TRACH OMATI S AND NEISS ERIA GONOR RHOEA E MOLEC ULAR STUDY .note See Note Origi nal Order ing Provi david: LORIE IA T BROOK ANTONIO [facility] - [facility] - [address] [facility], [place]a mungu[place], [facility] [place] [address] Not Available [facility] [address] [place], [address], 12/22/2024 11:07:03 12/22/19 25 12/21/2024 CHLAM YDIA TRACH OMATI S AND NEISS ERIA GONOR RHOEA E MOLEC ULAR STUDY neisseria gonorrhoeae PCR Negati ve negati ve Not Available [facility] [address] [place], [address], 12/22/2024 11:07:03 12/22/19 25 12/21/2024 CHLAM YDIA TRACH OMATI S AND NEISS ERIA GONOR RHOEA E MOLEC ULAR STUDY chlamydia trachomatis PCR Negati ve negati ve Not Available [facility] [address] [place], [address], 12/22/2024 11:07:03 12/22/19 25 12/21/2024 HIV 1 MOLEC ULAR STUDY QUANT ITATI VE HIV-1 RNA interpretati on Not Detect ed not detect ed HIV RNA not detec wayne, unabl e to repor t quant itati ve resul ts. Not Available [facility] [address] [place], [address], 12/22/2024 14:56:11 12/22/19 25 12/21/2024 HIV 1 MOLEC ULAR STUDY QUANT ITATI VE note See Report [facility], [address] [facility], Hansa munguia, [facility] [place] [address] Not Available [facility] [address] [place], [address], 12/22/2024 14:56:11 Result Notes None recorded. 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 tic infection of other specified sites; snomeddesc ription: Actinomyco tic infection; Report Immunity to Registry: Yes; Notes: CO laser ablation; Actinomyc otic infection; snomeddesc ription: Actinomyco tic infection; Report Immunity to Registry: Yes; Notes: CO laser ablation; Not Available [facility] 4 06:58:46 Gastroeso phageal reflux disease 498276592 Active 2013 Esophageal reflux; snomeddesc ription: Gastroesop hageal reflux disease; Report Immunity to Registry: Yes; Gastroeso phageal reflux disease; snomeddesc ription: Gastroesop hageal reflux disease; Report Immunity to Registry: Yes; Not Available [facility] 4 06:58:44 Osteopeni a 527524104 Active 2013 Osteopenia ; snomeddesc ription: Osteopenia ; Report Immunity to Registry: Yes; Not Available [facility] 4 06:58:45 Opioid dependenc e 66504191 Active 2013 Opioid dependence ; snomeddesc ription: Opioid dependence ; Report Immunity to Registry: Yes; Opioid type dependence , unspecifie d use; snomeddesc ription: Opioid dependence ; Report Immunity to Registry: Yes; Not Available [facility] 4 06:58:45 Disorder of bone and articular cartilage 690016382 Active 2013 Disorder of bone and cartilage, unspecifie d; snomeddesc ription: Osteopenia ; Report Immunity to Registry: Yes; Not Available [facility] 4 06:58:45 Malaise and fatigue 383471404 Active 2013 Other malaise and fatigue; snomeddesc ription: Fatigue; Report Immunity to Registry: Yes; Not Available [facility] 4 06:58:45 Fatigue 93325313 Active 2013 Fatigue; snomeddesc ription: Fatigue; Report Immunity to Registry: Yes; Not Available [facility] 4 06:58:45 Hyperlipi demia 52249161 Active 2013 Hyperlipid emia; snomeddesc ription: Hyperlipid emia; Report Immunity to Registry: Yes; Other and unspecifie d hyperlipid emia; snomeddesc ription: Hyperlipid emia; Report Immunity to Registry: Yes; Not Available [facility] 4 06:58:45 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 Candidiasi s of vulva and vagina; snomeddesc ription: Candidiasi s of vagina; Report Immunity to Registry: Yes; Not Available [facility] 4 06:58:46 Mixed hyperlipi demia 260325851 Active 2013 Mixed hyperlipid emia; snomeddesc ription: Mixed hyperlipid emia; Report Immunity to Registry: Yes; Not Available [facility] 4 06:58:46 Human immunodef iciency virus infection 37074777 Active 2013 Human immunodefi ciency virus [HIV] disease; snomeddesc ription: Human immunodefi ciency virus infection; Report Immunity to Registry: Yes; Human immunodefi ciency virus infection; snomeddesc ription: Human immunodefi ciency virus infection; Report Immunity to Registry: Yes; Not Available [facility] 4 06:58:46 Opioid dependenc e in remission 019082577 Active 2013 Opioid dependence in remission; snomeddesc ription: Opioid dependence in remission; Report Immunity to Registry: Yes; Opioid type dependence , in remission; snomeddesc ription: Opioid dependence in remission; Report Immunity to Registry: Yes; Not Available [facility] 4 06:58:46 Candidias is of vagina 40520018 Active 2013 Candidiasi s of vagina; snomeddesc ription: Candidiasi s of vagina; Report Immunity to Registry: Yes; Not Available [facility] 4 06:58:46 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 Lipodystro phy; snomeddesc ription: Lipodystro phy; Report Immunity to Registry: Yes; Not Available [facility] 4 06:58:45 Herpesvir us infection 13698575 Active 2016 Herpesviru s infection; snomeddesc ription: Herpesviru s infection; Report Immunity to Registry: Yes; Notes: HSv 1 pos; 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; Herpesvir al infection, unspecifie d; snomeddesc ription: Herpesviru s infection; Report Immunity to Registry: Yes; Notes: HSv 1 pos; 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; Not Available [facility] 4 06:58:46 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; snomeddesc ription: 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; Report Immunity to Registry: Yes; Notes: 01/2018; Not Available [facility] 4 06:58:[address] Concept Active 2018 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 Medical Equipment None Reported. Medications Name Sig Start Date Stop Date Status Note LastModified by Organization Details LastModified Time Pravachol 40 mg tablet 40 mg Quantity : 30; 3 refill(s ) 01/02 completed Frequenc y: qd; VACCINE_ IND: no; SU_FULL_ NAME: William chu; Not Available Not Available Not Available multivita min tablet TAKE 1 TABLET BY MOUTH EVERY DAY 11/08 completed Duration : 30; VACCINE_ IND: no; SU_FULL_ NAME: William chu; Not Available Not Available Not Available cyclobenz aprine 10 mg tablet TAKE 1 TABLET BY MOUTH EVERY 8 HOURS FOR 21 DAYS NEEDED MUSCLE SPASMS active Not Available Not Available No t Available Megace 400 mg/10 mL (40 mg/mL) oral suspensio n 40 mg/mL Quantity : 600; 0 refill(s ) 06/16 completed Frequenc y: qd; VACCINE_ IND: no; SU_FULL_ NAME: William chu; Not Available Not Available Not Available bupropion HCl SR 150 mg tablet,12 hr sustained -release TAKE 1 TABLET BY MOUTH TWICE DAILY 2024 active Not Available Not Available Not Avai lable clonidine HCl 0.1 mg tablet TAB 0.1MG; Quantity : 14; Duration : 7; 0 refill(s ) 12/29 completed Duration : 7; VACCINE_ IND: no; Not Available Not Available Not Available doxycycli ne hyclate 100 mg capsule TAKE 1 CAPSULE BY MOUTH TWICE DAILY FOR 14 DAYS FOR FURUNCLE BUTTOCK active Not Available Not Available No t Available Celexa 10 mg tablet 10 mg Quantity : ; 0 refill(s ) 08/27 completed Frequenc y: qd; VACCINE_ IND: no; Not Available Not Available Not Available Remeron 30 mg tablet 30 mg Quantity : 30; Duration : 30; 3 refill(s ) 02/17 completed Frequenc y: qd; Duration : 30; VACCINE_ IND: no; SU_FULL_ NAME: William chu; Not Available Not Available Not Available trazodone 50 mg tablet TAB 50MG; Quantity : 7; Duration : 7; 0 refill(s ) 12/29 completed Duration : 7; VACCINE_ IND: no; Not Available Not Available Not Available cetirizin e 10 mg tablet TAKE 1 TABLET BY MOUTH EVERY DAY FOR RHINITIS active Not Available Not Available No t Available Pneumovax -23 25 mcg/0.5 mL injection solution - Quantity : ; 0 refill(s ) 11/10 completed VACCINE_ IND: yes; VACCINE_ NAME: pneumoco ccal polysacc haride [id number]; SU_FULL_ NAME: William chu; Not Available Not Available Not Available hydrocort isone acetate 1 % topical cream 1% Quantity : 1; 0 refill(s ) 06/30 completed Frequenc y: qd; VACCINE_ IND: no; SU_FULL_ NAME: William chu; Not Available Not Available Not Available cefpodoxi me 200 mg tablet TAKE 1 TABLET BY MOUTH TWICE DAILY active Not Available Not Available No t Available fluconazo le 150 mg tablet TAKE 1 TABLET BY MOUTH EVERY 72 HOURS active Not Available Not Available No t Available Ritalin 20 mg tablet 20 mg Quantity : 60; 0 refill(s ) 01/23 completed Frequenc y: bid; VACCINE_ IND: no; Not Available Not Available Not Available donepezil 10 mg tablet TAKE 1 TABLET BY MOUTH DAILY AT BEDTIME active Not Available Not Available No t Available ondansetr on HCl 4 mg tablet 4MG TABLETS; Quantity : 6; Duration : 2; 0 refill(s ) 06/19 completed Duration : 2; VACCINE_ IND: no; Not Available Not Available Not Available Pyridium 100 mg tablet 100 mg Quantity : 6; Duration : 3; 1 refill(s ) 07/16 completed Frequenc y: bid; Duration : 3; VACCINE_ IND: no; SU_FULL_ NAME: William Ramirezholger chu; Not Available Not Available Not Available Lantus U-100 Insulin 100 unit/mL subcutane ous solution Quantity : ; 0 refill(s ) 06/01 completed VACCINE_ IND: no; Not Available Not Available Not Available penicilli n V potassium 500 mg tablet 500 mg Quantity : 120; 0 refill(s ) 11/13 completed Frequenc y: tid; VACCINE_ IND: no; SU_FULL_ NAME: William Nascimento kimberley; Not Available Not Available Not Available ciproflox acin 500 mg tablet TAKE 1 TABLET BY MOUTH TWICE DAILY FOR 5 DAYS active Not Available Not Available No t Available sulfameth oxazole 800 mg-trimet hoprim 160 mg tablet TAKE 1 TABLET BY MOUTH EVERY 12 HOURS FOR 10 DAYS active Not Available Not Available No t Available Reglan 10 mg tablet 10 mg Quantity : 30; 1 refill(s ) 04/30 completed Frequenc y: bid; VACCINE_ IND: no; SU_FULL_ NAME: William Nascimento kimberley; Not Available Not Available Not Available Ritalin 10 mg tablet 10 mg Quantity : 120; Duration : 60; 0 refill(s ) 11/07 completed Frequenc y: bid; Duration : 60; VACCINE_ IND: no; Not Available Not Available Not Available alprazola m 0.5 mg tablet 0.5 mg Quantity : 30; 0 refill(s ) 11/13 completed Frequenc y: qd; VACCINE_ IND: no; SU_FULL_ NAME: William chu; Not Available Not Available Not Available alprazola m 0.25 mg tablet 0.25 mg Quantity : 30; 0 refill(s ) 01/02 completed Frequenc y: qd; VACCINE_ IND: no; SU_FULL_ NAME: William chu; Not Available Not Available Not Available citalopra m 20 mg tablet TK 1 T PO D 11/19 completed Duration : 30; VACCINE_ IND: no; SU_FULL_ NAME: William chu; Not Available Not Available Not Available Diflucan 100 mg tablet 1 tab po qd 01/23 completed VACCINE_ IND: no; SU_FULL_ NAME: William chu; Not Available Not Available Not Available trazodone 100 mg tablet TAB 100MG; Quantity : 7; Duration : 7; 0 refill(s ) 12/29 completed Duration : 7; VACCINE_ IND: no; Not Available Not Available Not Available nortripty line 75 mg capsule TAKE ONE CAPSULE BY MOUTH EVERY DAY 10/06 completed Duration : 30; VACCINE_ IND: no; SU_FULL_ NAME: William chu; Not Available Not Available Not Available erythromy miguel 5 mg/gram (0.5 %) eye ointment APPLY 1/2 INCH IN BOTH EYES FOUR TIMES DAILY FOR 10 DAYS active Not Available Not Available No t Available IBU 400 mg tablet 1 tab po bid PRN for pain 06/12 completed Duration : 10; VACCINE_ IND: no; SU_FULL_ NAME: iWlliam chu; Not Available Not Available Not Available Serostim 4 mg subcutane ous solution Inject 4 mg every day by subcutan eous route for 30 days, for HIV cachexia . active Not Available Not Available No t Available pramipexo le 0.125 mg tablet TAB 0.125MG; Quantity : 10; Duration : 10; 0 refill(s ) 03/07 completed Duration : 10; VACCINE_ IND: no; Not Available Not Available Not Available mupirocin calcium 2 % topical cream apply in each nostril qd x 7 days 04/30 completed VACCINE_ IND: no; SU_FULL_ NAME: William chu; Not Available Not Available Not Available docusate sodium 100 mg capsule TAKE ONE CAPSULE BY MOUTH TWICE A DAY 12/18 completed Duration : 30; VACCINE_ IND: no; SU_FULL_ NAME: William chu; Not Available Not Available Not Available sertralin e 25 mg tablet TAKE 1 TABLET BY MOUTH DAILY active Not Available Not Available No t Available omeprazol e 20 mg capsule,d elayed release 20 Quantity : 90; Duration : 90; 0 refill(s ) 04/30 completed Duration : 90; VACCINE_ IND: no; Not Available Not Available Not Available aspirin 81 mg chewable tablet 81 Quantity : 90; Duration : 90; 0 refill(s ) 12/19 completed Duration : 90; VACCINE_ IND: no; Not Available Not Available Not Available hydroxyzi ne HCl 25 mg tablet HCL TAB 25MG; Quantity : 56; Duration : 14; 0 refill(s ) 12/29 completed Duration : 14; VACCINE_ IND: no; Not Available Not Available Not Available lisinopri l 5 mg tablet TAKE 1 TABLET BY MOUTH DAILY active Not Available Not Available No t Available Pravachol 80 mg tablet 80 mg Quantity : 30; 3 refill(s ) 11/14 completed Frequenc y: qd; VACCINE_ IND: no; SU_FULL_ NAME: William chu; Not Available Not Available Not Available Wellbutri n 100 mg tablet 100 mg Quantity : 30; Duration : 30; 0 refill(s ) 07/06 completed Frequenc y: qd; Duration : 30; VACCINE_ IND: no; SU_FULL_ NAME: William chu; Not Available Not Available Not Available Percocet 5 mg-325 mg tablet 325 mg-5 mg Quantity : ; 0 refill(s ) 11/07 completed VACCINE_ IND: no; SU_FULL_ NAME: Other; Not Available Not Available Not Available Lipitor 10 mg tablet 10 mg Quantity : 30; Duration : 3; 0 refill(s ) 11/17 completed Frequenc y: qd; Duration : 3; VACCINE_ IND: no; SU_FULL_ NAME: William Raimrezholger chu; Not Available Not Available Not Available metformin ER 500 mg tablet,ex tended release 24 hr TAB 500MG ER; Quantity : 90; Duration : 90; 0 refill(s ) 04/30 completed Duration : 90; VACCINE_ IND: no; Not Available Not Available Not Available Celexa 40 mg tablet 40 mg Quantity : 30; 0 refill(s ) 08/27 completed Frequenc y: qd; VACCINE_ IND: no; SU_FULL_ NAME: Iwlliam Martholger chu; Not Available Not Available Not Available nortripty line 50 mg capsule 50 Quantity : 180; Duration : 90; 0 refill(s ) 03/07 completed Duration : 90; VACCINE_ IND: no; Not Available Not Available Not Available erythromy miguel with ethanol 2 % topical gel APPLY TOPICALL Y TO THE AFFECTED AREA TWICE DAILY active Not Available Not Available No t Available Pneumovax -23 25 mcg/0.5 mL injection syringe - Quantity : ; 0 refill(s ) 2021 active VACCINE_ IND: yes; VACCINE_ DOCUMENT _DATE: 00:00:00 ; VACCINE_ DOCUMENT _NAME: Pneumoco ccal Polysacc haride (PPSV23) : 01/28/19 ; VACCINE_ NAME: pneumoco ccal polysacc haride PPV23; SU_FULL_ NAME: William chu; VIS_DATE : 17:22:07 .0; Not Available Not Available Not Available bupropion HCl SR 200 mg tablet,12 hr sustained -release TAKE 1 TABLET BY MOUTH TWICE DAILY active Not Available Not Available No t Available azithromy miguel 500 mg tablet 500 mg Quantity : 5; Duration : 5; 0 refill(s ) 03/14 completed Frequenc y: qd; Duration : 5; VACCINE_ IND: no; SU_FULL_ NAME: William chu; Not Available Not Available Not Available escitalop lili 10 mg tablet TAB 10MG; Quantity : 90; Duration : 90; 0 refill(s ) 04/30 completed Duration : 90; VACCINE_ IND: no; Not Available Not Available Not Available buprenorp lazara 2 mg-naloxo ne 0.5 mg sublingua l tablet 0 Quantity : 8; Duration : 4; 0 refill(s ) 12/29 completed Duration : 4; VACCINE_ IND: no; Not Available Not Available Not Available buprenorp lazara 8 mg-naloxo ne 2 mg sublingua l tablet DIS 1 T UNT QD 09/29 completed Duration : 14; VACCINE_ IND: no; Not Available Not Available Not Available cyclobenz aprine 5 mg tablet TAB 5MG; Quantity : 15; Duration : 5; 0 refill(s ) 03/07 completed Duration : 5; VACCINE_ IND: no; Not Available Not Available Not Available Loratadin e-D 10 mg-240 mg tablet,ex tended release 24 hr 10 mg-240 mg Quantity : 30; Duration : 30; 0 refill(s ) 08/24 completed Duration : 30; VACCINE_ IND: no; SU_FULL_ NAME: William chu; Not Available Not Available Not Available bupropion HCl XL 150 mg 24 hr tablet, extended release Take 1 tablet every 12 hours by oral route for 30 days. 2024 active Not Available Not Available Not Avai lable nitrofura ntoin monohydra te/macroc rystals 100 mg capsule TAKE 1 CAPSULE BY MOUTH TWICE DAILY FOR 5 DAYS active Not Available Not Available No t Available Truvada 200 mg-300 mg tablet TABLETS; Quantity : 30; Duration : 30; 0 refill(s ) 11/10 completed Duration : 30; VACCINE_ IND: no; Not Available Not Available Not Available acamprosa te 333 mg tablet,de layed release CALCIUM DR 333MG TABLET DELAYED RELEASE; Quantity : 180; Duration : 30; 0 refill(s ) 02/17 completed Duration : 30; VACCINE_ IND: no; Not Available Not Available Not Available lactulose 10 gram/15 mL oral solution 10 g/15 mL Quantity : 300; 2 refill(s ) 01/23 completed Frequenc y: bid; VACCINE_ IND: no; SU_FULL_ NAME: William chu; Not Available Not Available Not Available Boostrix Tdap 2.5 Lf unit-8 mcg-5 Lf/0.5 mL intramusc ular suspensio n 5 units-2. 5 units-18 .5 mcg/0.5 mL Quantity : ; Duration : 30; 0 refill(s ) 08/18 completed Duration : 30; VACCINE_ IND: yes; VACCINE_ NAME: Tdheide; SU_FULL_ NAME: William Amor; VIS_DATE : 04:00:00 .0; Not Available Not Available Not Available Kaletra 200 mg-50 mg tablet 200-50MG TABLETS; Quantity : 120; Duration : 30; 0 refill(s ) 11/10 completed Duration : 30; VACCINE_ IND: no; Not Available Not Available Not Available oxycodone Quantity : ; 0 refill(s ) 07/28 completed VACCINE_ IND: no; Not Available Not Available Not Available prednison e Quantity : ; 0 refill(s ) 06/01 completed VACCINE_ IND: no; Not Available Not Available Not Available hydrocort isone Quantity : ; 0 refill(s ) 04/30 completed Frequenc y: qd; VACCINE_ IND: no; Not Available Not Available Not Available glipizide Quantity : ; 0 refill(s ) 06/01 completed VACCINE_ IND: no; Not Available Not Available Not Available Suboxone Quantity : 60; Duration : 30; 0 refill(s ) 05/10 completed Frequenc y: bid; Duration : 30; VACCINE_ IND: no; SU_FULL_ NAME: Dr. Pily chu; Not Available Not Available Not Available Fish Oil 340 mg-1,000 mg capsule 1000 mg Quantity : 30; 3 refill(s ) 04/30 completed Frequenc y: qd; VACCINE_ IND: no; SU_FULL_ NAME: William chu; Not Available Not Available Not Available FreeStyle Lite Strips 0 Quantity : 100; Duration : 50; 0 refill(s ) 12/29 completed Duration : 50; VACCINE_ IND: no; Not Available Not Available Not Available FeroSul 325 mg (65 mg iron) tablet TAKE 1 TABLET BY MOUTH DAILY active Not Available Not Available No t Available Engerix-B (PF) 20 mcg/mL intramusc ular suspensio n 20 mcg/mL Quantity : ; 0 refill(s ) 05/08 completed VACCINE_ IND: yes; VACCINE_ NAME: Hep B, adult; SU_FULL_ NAME: William chu; Not Available Not Available Not Available Lantus Solostar U-100 Insulin 100 unit/mL (3 mL) subcutane ous pen INJECT 8 UNITS UNDER THE SKIN DAILY 05/08 completed Duration : 30; VACCINE_ IND: no; Not Available Not Available Not Available Havrix (PF) 1,440 FAMILIA unit/mL intramusc ular suspensio n 1440 units/mL preserva tive free Quantity : ; 0 refill(s ) active VACCINE_ IND: yes; VACCINE_ NAME: Hep A, adult; Not Available Not Available Not Available oxycodone 10 mg tablet TAKE 1 TABLET BY MOUTH EVERY 6 HOURS NEEDED FOR PAIN. active Not Available Not Available No t Available Prevnar 13 (PF) 0.5 mL intramusc ular syringe - Quantity : ; 0 refill(s ) 05/08 completed VACCINE_ IND: yes; VACCINE_ NAME: Pneumoco ccal conjugat e PCV 13; SU_FULL_ NAME: William chu; Not Available Not Available Not Available Suboxone 2 mg-0.5 mg sublingua l film 0 Quantity : 4; Duration : 8; 0 refill(s ) 03/07 completed Duration : 8; VACCINE_ IND: no; Not Available Not Available Not Available buprenorp lazara 8 mg-naloxo ne 2 mg sublingua l film DISSOLVE 1 FILM UNDER THE TONGUE ONCE DAILY active Not Available Not Available No t Available Caltrate with Vitamin D3 600 mg-20 mcg (800 unit) tablet 600 mg-800 intl units Quantity : 60; 3 refill(s ) 11/08 completed Frequenc y: bid; VACCINE_ IND: no; SU_FULL_ NAME: William Ramirezholger chu; Not Available Not Available Not Available buprenorp lazara 4 mg-naloxo ne 1 mg sublingua l film 4 mg-1 mg Quantity : 11; Duration : 7; 0 refill(s ) 06/28 completed Duration : 7; VACCINE_ IND: no; Not Available Not Available Not Available Suboxone 12 mg-3 mg sublingua l film 12 mg-3 mg Quantity : 3; Duration : 6; 0 refill(s ) 07/31 completed Duration : 6; VACCINE_ IND: no; Not Available Not Available Not Available Caltrate 600 mg Quantity : 60; Duration : 30; 0 refill(s ) 11/04 completed Frequenc y: bid; Duration : 30; VACCINE_ IND: no; SU_FULL_ NAME: William chu; Not Available Not Available Not Available naloxone 4 mg/actuat ion nasal spray CALL 911. SPR CONTENTS OF ONE SPRAYER (0.1ML) INTO ONE NOSTRIL. REPEAT IN 2-3 MIN IF SYMPTOMS OF OPIOID EMERGENC Y PERSIST, ALTERNAT E NOSTRILS active Not Available Not Available No t Available Fluvirin 45 mcg (15 mcg x 3)/0.5 mL intramusc ular suspensio n trivalen t Quantity : ; 0 refill(s ) 05/08 completed VACCINE_ IND: yes; VACCINE_ NAME: Influenz a, seasonal , injectab le; SU_FULL_ NAME: William chu; Not Available Not Available Not Available Symtuza 800 mg-150 mg-200 mg-10 mg tablet TAKE 1 TABLET BY MOUTH EVERY DAY 2024 active Not Available Not Available Not Avai lable Afluria Quad 60 mcg (15 mcg x 4)/0.5 mL IM suspensio n quadriva lent Quantity : ; 0 refill(s ) 2018 active VACCINE_ IND: yes; VACCINE_ NAME: influenz a, injectab le, quadriva lent; SU_FULL_ NAME: William chu; VIS_DATE : 21:19:03 .0; Not Available Not Available Not Available [facility] mcg (15 mcg x 4)/0.5 mL intramusc ular susp. quadriva lent Quantity : ; 0 refill(s ) 2018 active VACCINE_ IND: yes; VACCINE_ NAME: influenz a, injectab le, quadriva lent; SU_FULL_ NAME: William chu; VIS_DATE : 16:13:57 .0; Not Available Not Available Not Available Florajen Digestion 15 billion cell capsule - Quantity : 30; 0 refill(s ) 07/28 completed VACCINE_ IND: no; SU_FULL_ NAME: William chu; Not Available Not Available Not Available [facility] 60 mcg (15 mcg x 4)/0.5 mL intramusc ular susp. quadriva lent Quantity : ; 0 refill(s ) 2020 active VACCINE_ IND: yes; VACCINE_ DOCUMENT _DATE: 00:00:00 ; VACCINE_ DOCUMENT _NAME: Influenz a (Flu) (Inactiv ated or Recombin ant): 11/04/20; VACCINE_ NAME: influenz a, injectab le, quadriva lent; SU_FULL_ NAME: William chu; VIS_DATE : 18:00:55 .0; Not Available Not Available Not Available [facility] (6mo up) 60 mcg (15 mcg x 4)/0.5 mL IM susp quadriva lent Quantity : ; 0 refill(s ) 2021 active VACCINE_ IND: yes; VACCINE_ NAME: influenz a, injectab le, quadriva lent; SU_FULL_ NAME: Neris Wallis; VIS_DATE : 17:23:51 .0; Not Available Not Available Not Available Vitals Date Recorded Body height Body temperature Respiratory rate Heart rate Body mass index (BMI) Body weight Oxygen saturation Oxygen saturation in Arterial blood by Pulse oximetry Systolic And Diastolic Provider Name and Address Organization Details Last Updated DateTime 4 157.48 cm 98.8 [degF] 10 /min 59 /min 18.1 kg/m2 20418.6 4 g 96 % 96 % 128/76 mm[Hg] Yvrose MORALES MD [facility] 4 14:47:26 Social History None recorded. Functional Status None recorded. Mental Status None recorded. Family History Nothing Reported Notes:ANXIETY, Response Prop erty: Yes; , Arthritis, Response Property: Yes; Relationship: Mother ; Relationship: Father: Diabetes, Response Property: Yes; Medical History No medical history recorded. Gynecological HistoryNo gynecological history recorded. Obstetrics History GPAL:G 0 P 0 0 0 0 Immunizations Vaccine Type Date Status Note Provider Nam e and Address Organization Details Recorded Time pneumococcal polysaccharide PPV23 2 completed Not Available [facility] 05/22/2023 06:53:54 Influenza, split virus, quadrivalent, preservative 9 completed Not Available [facility] 05/22/2023 06:53:55 Influenza, split virus, quadrivalent, preservative 9 completed Not Available [facility] 05/22/2023 06:53:55 Influenza, split virus, quadrivalent, preservative 1 completed Not Available [facility] 05/22/2023 06:53:55 Past Encounters Encounter ID Performer Location Encounter Start Date Encounter Closed Date Diagnosis/Indication Diagnosis SNOMED-CT Code Diagnosis ICD10 Code Diagnosis IMO Codes Diagnosis Note [id number] William Morales MD Main Office [address] [place] [address] 12/05/2022 15:25:15 12/05/2022 15:39:18 Human immunodeficiency virus infection 49421466 B20 HIV: Continue Symtuza 1 tab po qd. strict compliance addressed to prevent viral resistance , keep viral suppressio n labs ordered shingles vaccine prescribed . COVID19 Bivalent booster recommende d U=U. pt aware of PreP availabili ty. plan of care recommende d Depressive disorder 5469 4406 F32.A Cirrhosis of liver 007 K74.60 yearly HCC screen with u/s ordered in setting of cirrhosis. [id number] William Morales MD Main Office [address] [place] [address] 05/21/2023 16:39:52 05/21/2023 16:59:52 Human immunodeficiency virus infection 82268755 B20 HIV: Continue Symtuza 1 tab po qd. strict compliance addressed to prevent viral resistance , keep viral suppressio n labs ordered U=U. pt aware of PreP availabili ty. plan of care recommende d Depressive disorder 3548 9007 F32.A Cirrhosis of liver K74.60 yearly HCC screen with u/s ordered in setting of cirrhosis. [id number] William Morales MD Main Office [address] [place] [address] 09/23/2023 10:10:03 09/23/2023 10:50:20 Human immunodeficiency virus infection 15966705 B20 HIV: Continue Symtuza 1 tab po qd. she is aware of TAF free options. clinical trial reviewed strict compliance addressed to prevent viral resistance , keep viral suppressio n labs repeated CD4 per pt request. she will go on 2-3 weeks to repeat it. U=U. pt aware of PreP availabili ty.DoxyPEP reviewed plan of care recommende d Depressive disorder 35477 F32.A Cirrhosis of liver K74.60 u/s stable 2023 [id number] William Morales MD Main Office [address] [place] [address] 10/15/2023 14:32:43 10/15/2023 15:14:55 Human immunodeficiency virus infection 33051275 B20 HIV: Continue Symtuza 1 tab po qd. she is aware of TAF free options. clinical trial reviewed strict compliance addressed to prevent viral resistance , keep viral suppressio n U=U. pt aware of PreP availabili ty.DoxyPEP reviewed plan of care recommende d Depressive disorder 35477 F32.A stable on bupropion qd. Cirrhosis of liver K74.60 u/s stable 2023 Iron defic iency anemia 09956845 D50.9 Start iron qd.will monitor Cachexia 437911309 R64 Serostim for injection is indicated for the treatment of HIV patients with wasting or cachexia to increase lean body mass and body weight, and improve physical endurance. potential side effects reviewed such as allergic site reaction, pancreatit is, n/v/d among otherSeros dot 4mg-weight based ordered for qd injection s/c.avoid ETOHshe will come in to get 1rst dose. Furuncle of buttock 1243 0003 L02.32 swab obtained.D Oxy 100mg po bid x 10-14 dif no resolution , will need to see dermatolog y or surgery for biopsy [id number] William Morales MD Main Office [address] [facility] [place] [address] 01/16/2024 16:19:36 01/20/2024 11:36:09 Human immunodeficiency virus infection 65606266 B20 HIV: Continue Symtuza 1 tab po qd. she is aware of TAF free options. 2 drug options and long acting options reviewed. strict compliance addressed to prevent viral resistance , keep viral suppressio nlabsU=U. pt aware of PreP availabili ty.DoxyPEP reviewedde clines COVID19 vaccineflu and RSV vaccine recommende dplan of care recommende d Depressive disorder 3548 9007 F32.A stable on bupropion qd. Cachexia 327272464 R64 she stopped Serostim,a t least for now..WIll consider bringing in med to get trained on injection use. [id number] William Morales MD Main Office [address] [place] [place] [address] 11/23/2024 15:23:31 11/26/2024 08:15:51 Human immunodeficiency virus infection 84166029 B20 HIV: Continue Symtuza 1 tab po qd. she is aware of TAF free options. 2 drug options and long acting options reviewed. clinical trial options reviewed prefers to keep current regimen.st rict compliance addressed to prevent viral resistance , keep viral suppressio nlabsU=U. pt aware of PreP availabili ty.flu vccine recommende dplan of care recommende d Depressive disorder 1803 9007 F32.A stable on bupropion qd.refille d Seasonal a llergic rhinitis 662407499 J30.2 [id number] [facility]. [id number] William Morales MD Main Office [address] [place] [address], [place] [address] 12/17/2024 09:02:20 12/17/2024 09:31:11 Human immunodeficiency virus infection 38052706 B20 HIV: Continue Symtuza 1 tab po qd. prefers to keep current regimen. she i aware of Biktarvy among other options.st rict compliance addressed to prevent viral resistance , keep viral suppressio nlabs this week: has lab req and [facility]ed to [employer] all vaccines.U =U. pt aware of PreP availabili ty.plan of care recommende d Depressive disorder 7642 7894 F32.A stable on bupropion qd.refille d Health Concerns Section Related Observation LastModified by Organization Detai ls LastModified Time None Recorded Concern Status LastModified by Organization Details LastModified Time None Recorded Advance Directives Directive None Recorded Payers Insurance Date Sequence Insurance Name Policy Number Policy Toth Covered Member ID Toth Member ID Guarantor Name 12/14/2024 1 [facility] - DOS ON OR AFTER 2022 - MEDICARE ADVANTAGE [place] (MEDICARE REPLACEMENT/ADV ANTAGE - PPO) Sandhyabret Cisneros [id number] Notes Date Note Type Note Provider Name and Address Organization Details Recorded Time 09/23/2023 text/html ROS as noted in the HPI on Symtuza 1 tab po qd STR 1 tab po qd.reports compliance; denies missing doses.Has not been sick since she was last seen.fellstable depression. no SI/no HI.med list reviewedlabs 08/2023 HIV VL nondetceted; CD4= 188(30%); quant neg; treponemal neg; HCV VL neg; HBV s ag neg; AST/ALT wnl; gKFW=800/2022 HIV VL nondetceted; ALt/AST wnl ; HCV neg; HBV s ag neg; wnl; eGFR>701/2: HIV VL nondetected. liver and kidney function ok. CD4>200not sexually activeno fever. no weight loss; no n/v/d. no rashdenies drug use.no ETOH use.not sexually activeu/s abd stable. William Morales MD [address] [place] [address], [phone], NEAL MORALES MD [facility] 09/23/2023 11:49:23 10/15/2023 text/html ROS as noted in the HPI HIV f/uon Symtuza 1 tab po qd STR 1 tab po qd.reports compliance; denies missing doses.Has not been sick since she was last seen, except for falls; she reports PCP saw her last month, and will see her again tomorrow. significant weight loss over time. weak/tired chronically. have a good apetitte, but is losing weight. .was on insulin, but was d/c per her report.stable depression. no SI/no HI. buprorion XL 150 qd. scot are now with their fathermed list reviewedon suboxone for opiate maintenance; denies active drug use; substance use in the past.no ETOHlabs 08/2023 HIV VL nondetceted; CD4= 188(30%); quant neg; treponemal neg; HCV VL neg; HBV s ag neg; AST/ALT wnl; eGFR=97; anemia HgB 10. HIV VL nondetceted; ALt/AST wnl ; HCV neg; HBV s ag neg; wnl; eGFR>701/2021: HIV VL nondetected. liver and kidney function ok. CD4>200on fluconazole recently for skin fungal infection. resolved.not sexually activeno fever. no n/v/d. no rashdenies drug use.no ETOH use.not sexually activeu/s abd stable.she has anemia. had colonscopy within 10 yeas per her reports it was nl. skin right inner buttocks cheek: lump/furuncle. about 6 months. not treated. no dsicharge. William Morales MD [address] [place] [address], [phone], [facility] WILLIAM MORALES MD [facility] 10/15/2023 16:22:31 01/16/2024 text/html ROS as noted in the HPI HIV f/uon Symtuza 1 tab po qd STR 1 tab po qd.reports compliance; denies missing doses.Sandhya tried one dose of serostim; did not know how to do injection, and stopped it. she was suppossed to come in to get training for injection on site, but did not do so.she underwent shoulder surgery, and has gained some weight since then 99-->102 lbs.stable depression. no SI/no HI. buprorion XL 150 qd.med list reviewedon suboxone for opiate maintenance; denies active substance use;no ETOHno recent labslabs 08/2023 HIV VL nondetceted; CD4= 188(30%); quant neg; treponemal neg; HCV VL neg; HBV s ag neg; AST/ALT wnl; eGFR=97; anemia HgB HIV VL nondetceted; ALt/AST wnl ; HCV neg; HBV s ag neg; wnl; eGFR>7004/2021: HIV VL nondetected. liver and kidney function ok. CD4>200on fluconazole recently for skin fungal infection. resolved.not sexually activeno fever. no n/v/d. no rashbuttock and thigh furuncles resolved. on doxycycline. stopped iron William Morales MD [address] [place] [address], [phone], NEAL MORALES MD [facility] 01/16/2024 17:58:22 11/23/2024 text/html ROS as noted in the HPI HIV f/ulast seen 01/16/24 on Symtuza 1 tab po qd STR 1 tab po qd.denies missing doses. needs refill.stable depression. no SI/no HI. buprorion XL 150 qd.needs refill.stable. no SI/no HIdenies substance use.on suboxone for opiate maintenance; denies active substance use;no ETOH no recent labstrasnportation barriers not sexually activeno fever. no n/v/d. no rashsudafed for congestionrhinitis. requests tx 03/2024 SO0=726; HIV VLnondetected;eGFR=95; treponemal ab neg08/2023 HIV VL nondetceted; CD4= 188(30%); quant neg; treponemal neg; HCV VL neg; HBV s ag neg; AST/ALT wnl; eGFR=97; anemia HgB HIV VL nondetceted; ALt/AST wnl ; HCV neg; HBV s ag neg; wnl; eGFR>7004/2021: HIV VL nondetected. liver and kidney function ok. CD4>200 William Morales MD [address] [place] [address], [phone], NEAL MORALES MD [facility] 11/24/2024 00:21:58 12/17/2024 text/html ROS as noted in the HPI HIV f/uon Symtuza 1 tab po qd STR 1 tab po qd.denies missing doses. needs refill.does not want to switch regimenstable depression. no SI/no HI. buprorion XL 150 qd.no SI/no HIdenies substance use. ; on suboxone for opiate maintenance;no ETOHno recent labs ; she forgot to get them.transportation barriersnot sexually activehas not been sickmed list reviewed. 03/2024 [id number]; HIV VLnondetected;eGFR=95; treponemal ab neg08/2023 HIV VL nondetceted; CD4= 188(30%); quant neg; treponemal neg; HCV VL neg; HBV s ag neg; AST/ALT wnl; eGFR=97; anemia HgB 10. HIV VL nondetceted; ALt/AST wnl ; HCV neg; HBV s ag neg; wnl; eGFR>701: HIV VL nondetected. liver and kidney function ok. CD4>200 William Morales MD [address] [place] [address], [phone], NEAL - WILLIAM MORALES MD [facility] 12/17/2024 09:24:11 OBGyn Episode No OBEpisode recorded.
== END 2024-12-25 10:17 | disposition home or self-care (01) ==
LOC: HO.NEURO 10:16
PROVIDERS: PCP Internal Medicine; Visit Provider Psychiatry & Neurology Neurology
DX: G93.40 Encephalopathy, unspecified (principal)
CPT/HCPCS: 95816

== ENCOUNTER → 2024-12-25 11:31 | Outpatient (BNV) | payer OTHER, SELFPAY | PROVIDERS: PCP Internal Medicine; Visit Provider Psychiatry & Neurology Neurology | DX: G93.40 Encephalopathy, unspecified (principal) | CPT/HCPCS: 95816 ==

== ENCOUNTER → 2025-02-04 15:55 | Outpatient (BNV) | payer OTHER, SELFPAY | PROVIDERS: PCP Internal Medicine; Visit Provider Radiology Diagnostic Radiology | DX: G93.40 Encephalopathy, unspecified (principal) | CPT/HCPCS: 70553 ==

== ENCOUNTER 2025-02-04 15:59 | Outpatient (REF) | payer OTHER, SELFPAY ==
--- NOTE | ~2025-02-04 | MR_ITS ---
EXAMINATION: MR BRAIN WITHOUT AND WITH CONTRAST CLINICAL INFORMATION: Radha 93.40 COMPARISON: 11/21/2023 from an outside institution. TECHNIQUE: Multiplanar, multisequence MRI of the brain was obtained before and after the intravenous administration of 5.0 mL gadolinium based (Gadavist) without reported immediate complications. FINDINGS: Patient's motion artifact. No restricted diffusion. No acute intracranial hemorrhage, mass effect, midline shift, hydrocephalus or herniation. No abnormal enhancement within the intra-axial or extra-axial compartment of the cranium. Franz-white matter differentiation is normal. Flow-void signal within the main cerebral vessels is normal. Prominence of the extra-axial CSF spaces cerebral sulci and ventricles likely central volume loss. No signal abnormality or abnormal enhancement in the hippocampi. Craniocervical junction demonstrates normal position of the abdominal tonsils. Sellar/suprasellar region is normal. MR/MR head/brain wo/w con IMPRESSION: No acute stroke/nonhemorrhagic ischemia. No abnormal enhancement. No acute brain abnormality. Global cerebral atrophy, mild. Electronically signed by: Axel Lopez MD 02/04/2025 08:26 PM [facility]
--- OUTSIDE RECORDS SUMMARY | 2025-02-04 18:33 | XMS_ITS | Data Portability ---
Author Organization NEAL - WILLIAM ALVAREZ MD [facility], Main Office Address [address] [place] [address] Assessment Encounter Date Assessment Date Assessment LastModified by Organization Details LastModified Time 01/16/2024 01/16/2024 audio. [facility] 01/16/2024 17:52:41 11/23/2024 11/23/2024 audio. telehealth. 18 min. pt home in [facility] In office in [facility] Not available 11/24/2024 00:20:50 12/17/2024 12/17/2024 audio. telehealth. 17 min. pt home in [facility] In office in [facility] Not available 12/17/2024 09:19:03 Plan of Treatment Reminders Order Date Submit Date Provider Last Modified By Organization Details Last Modified Time Details Appointments TH B20 F/U 2024 09:00A M William Morales MD Not available Not available Not available Lab CBC w/ diff [address] [place] [address] ([facility]), [address] [place], [address], 12/24/2024 09:28:45 HIV-1 RNA, quantita tive, PCR, serum or plasma [address] ([facility]), [address] [place], [address], 12/24/2024 09:28:46 RPR (rapid plasma reagin), serum [address] ([facility]), [address] [place], [address], 12/24/2024 09:28:46 T-cell regulato ry subsets panel, blood [address] ([facility]), [address] [place], [address], 12/24/2024 09:28:46 CMP, serum or plasma [address] [place] [address] ([facility]), [address] [place], [address], 12/21/2024 16:40:28 hepatiti s C Ab, signal-t o-cutoff , serum or plasma [address] ([facility]), [address] [place], [address], 12/24/2024 09:28:46 HBsAg (hepatit is B surface Ag), EIA, serum [address] ([facility]), [address] [place], [address], 12/24/2024 09:28:46 CT + NG DNA, PCR, unspecif ied specimen [address] [place] [address] ([facility]), [address] [place], [address], 12/24/2024 09:28:46 CBC w/ diff [address] [place] [address] ([facility]), [address] [place], [address], 12/04/2024 11:53:47 electrol ytes panel, blood [address] ([facility]), [address] [place], [address], 12/04/2024 11:53:47 ALT (alanine aminotra nsferase ), serum or plasma [address] [place] [address] ([facility]), [address] [place] [address], [address], 12/04/2024 11:53:47 AST/SGOT (asparta te aminotra nsferase ), serum or plasma [address] [place] [address] ([facility]), [address] [place] [address], [address], 12/04/2024 11:53:47 creatini ne w/ estimate d GFR (eGFR), serum or plasma [address] [place] [address] ([facility]), [address] [place] [address], [address], 12/04/2024 11:53:48 HIV-1 RNA, quantita tive, PCR, serum or plasma [address] [place] [address] ([facility]), [address] [place] [address], [address], 12/04/2024 11:53:48 RPR (rapid plasma reagin), serum [address] [place] [address] ([facility]), [address] [place] [address], [address], 12/04/2024 11:53:48 T-cell regulato ry subsets panel, blood [address] [place] [address] ([facility]), [address] [place], [address], 12/04/2024 11:53:48 CBC w/ diff [address] ([facility]), [address] [place], [address], 01/23/2024 09:21:12 electrol ytes panel, blood [address] ([facility]), [address] [place], [address], 01/23/2024 09:21:12 ALT (alanine aminotra nsferase ), serum or plasma [address] ([facility]), [address] [place], [address], 01/23/2024 09:21:12 AST/SGOT (asparta te aminotra nsferase ), serum or plasma [address] ([facility]), [address] [place], [address], 01/23/2024 09:21:12 creatini ne w/ estimate d GFR (eGFR), serum or plasma [address] ([facility]), [address] [place], [address], 01/23/2024 09:21:12 HIV-1 RNA, quantita tive, PCR, serum or plasma [address] ([facility]), [address] [place], [address], 01/23/2024 09:21:12 RPR (rapid plasma reagin), serum [address] ([facility]), [address] [facility] [place], [address], 01/23/2024 09:21:12 T-cell regulato ry subsets panel, blood [address] ([facility]), [address] [place], [address], 01/23/2024 09:21:12 culture, wound [address] ([facility]), [address] [place], [address], 10/15/2023 16:18:24 hepatiti s C liver status biomarke r panel, serum [address] ([facility]), [address] [place], [address], 09/30/2023 11:06:29 T-cell regulato ry subsets panel, blood 2023 024 [facility] ([facility]), [address] [place], [address], 09/23/2023 11:54:11 Referral None recorded . Procedures None recorded . Surgeries None recorded . Imaging None recorded . Medication Orders bupropio n HCl XL 150 mg 24 hr tablet, extended release 2024 025 [facility] #57380, [address] [place], [place], [id number], 12/17/2024 09:21:39 Symtuza 800 mg-150 mg-200 mg-10 mg tablet 2024 025 [facility] #27408, [address] [place], [place], [id number], 12/17/2024 09:21:43 Zyrtec 10 mg tablet 2024 [facility] #80406, [address] [place] [address], [id number], 11/23/2024 15:30:51 bupropio n HCl XL 150 mg 24 hr tablet, extended release 2024 [facility] #69050, [address] [place] [address], [id number], 11/23/2024 15:28:40 Symtuza 800 mg-150 mg-200 mg-10 mg tablet 2024 025 [facility] #49237, [address] [place] [address], [id number], 11/23/2024 15:28:43 bupropio n HCl XL 150 mg 24 hr tablet, extended release 2023 024 [facility] #90754, [address] [place] [address], [id number], 01/16/2024 17:58:19 Symtuza 800 mg-150 mg-200 mg-10 mg tablet 2023 024 [facility] #02484, [address] [place] [address], [id number], 01/16/2024 17:58:19 doxycycl ine hyclate 100 mg capsule 2023 024 [facility] #31575, [address] [place] [address], [id number], 10/15/2023 15:17:14 Serostim 4 mg subcutan eous solution 2023 [facility], [address] [place] [address] [place], [address], 10/15/2023 16:22:42 bupropio n HCl XL 150 mg 24 hr tablet, extended release 2023 [facility] #20832, [address] [place] [address], [id number], 10/15/2023 15:00:11 Symtuza 800 mg-150 mg-200 mg-10 mg tablet 2023 [facility] #46723, [address] [place] [address], [id number], 10/15/2023 15:00:11 ferrous sulfate 325 mg (65 mg iron) tablet 2023 [facility] #70741, [address] [place] [address], [id number], 10/15/2023 15:00:08 bupropio n HCl XL 150 mg 24 hr tablet, extended release 2023 [facility] #95015, [address] [place] [address], [id number], 09/23/2023 11:48:50 Symtuza 800 mg-150 mg-200 mg-10 mg tablet 2023 [facility] #23770, [address] [place] [address], [id number], 09/23/2023 11:48:51 Patient TargetsNo targets recorded. Patient InstructionsNo instructions recorded. Reason for Referral None Reported. Results Created Date Observation Date Name Description Value Unit Range Abnormal Flag Note LastModifiedBy Organization Detail LastModifiedTime 09/16/19 24 09/16/2023 CREAT ININE WITH GFR creat 0.61 mg/dL 0.5-1. 1 Not Available [facility] [address] [place], [address], 09/16/2023 14:47:16 09/16/19 24 09/16/2023 CREAT ININE WITH GFR glomerular filtration rate 97 >60 This eGFR resul t was calcu lated using the CKD-E PI 2020 Creat inine Equat ion Not Available [facility] [address] [place], [address], 09/16/2023 14:47:16 09/16/19 24 09/16/2023 ELECT ROLYT ES sodium 137 mEq/L 135-14 5 Not Available [facility] [address] [place], [address], 09/16/2023 14:47:17 09/16/19 24 09/16/2023 ELECT ROLYT ES potassium 4.6 mmol/ L 3.5-5. 5 Not Available [facility] [address] [place], [address], 09/16/2023 14:47:17 09/16/19 24 09/16/2023 ELECT ROLYT ES chloride 102 mmol/ L 96-110 Not Available [facility] [address] [place], [address], 09/16/2023 14:47:17 09/16/19 24 09/16/2023 ELECT ROLYT ES CO2 32 mmol/ L 21-32 Not Available [facility] [address] [place], [address], 09/16/2023 14:47:17 09/16/19 24 09/16/2023 ELECT ROLYT ES anion gap 3 3-11 Not Available [facility] [address] [place], [address], 09/16/2023 14:47:17 09/16/19 24 09/16/2023 ELECT ROLYT ES performing lab [facility] [address] [facility] [place] [address] Medic al Dire nando staley MD Not Available [facility] [address] [place], [address], 09/16/2023 14:47:17 09/16/19 24 09/16/2023 SGOT SGOT 20 U/L 10-42 Not Available [facility] [address] [place], [address], 09/16/2023 14:53:21 09/16/19 24 09/16/2023 SGPT SGPT 27 U/L 10-60 Not Available [facility] [address] [place], [address], 09/16/2023 14:53:21 09/16/19 24 09/16/2023 SGPT performing lab [facility], [facility] [address] [facility] [place] [address] Medic al Dire nando staley MD Not Available [facility] [address] [place], [address], 09/16/2023 14:53:21 09/16/19 24 09/16/2023 CBC WITH AUTO DIFF WBC 2.5 x10-3 /uL 4.8-10 .8 low Not Available [facility] [address] [place], [address], 09/16/2023 14:57:20 09/16/19 24 09/16/2023 CBC WITH AUTO DIFF RBC 3.2 x10-6 /uL 3.8-4. 8 low Not Available [facility] [address] [place], [address], 09/16/2023 14:57:20 09/16/19 24 09/16/2023 CBC WITH AUTO DIFF hemoglobin 10.5 g/dL 11.5-1 6.0 low Not Available [facility] [address] [place], [address], 09/16/2023 14:57:20 09/16/19 24 09/16/2023 CBC WITH AUTO DIFF hematocrit 32.5 % 35-47 low Not Available [facility] [address] [place], [address], 09/16/2023 14:57:20 09/16/19 24 09/16/2023 CBC WITH AUTO DIFF MCV 100.3 fL 79-98 high Not Available [facility] [address] [place], [address], 09/16/2023 14:57:20 09/16/19 24 09/16/2023 CBC WITH AUTO DIFF MCH 32.4 pg 27-32 high Not Available [facility] [address] [place], [address], 09/16/2023 14:57:20 09/16/19 24 09/16/2023 CBC WITH AUTO DIFF MCHC 32.3 g/dL 32-37 Not Available [facility] [address] [place], [address], 09/16/2023 14:57:20 09/16/19 24 09/16/2023 CBC WITH AUTO DIFF RDW 13.5 % 11-15 Not Available [facility] [address] [place], [address], 09/16/2023 14:57:20 09/16/19 24 09/16/2023 CBC WITH AUTO DIFF plt count 170 x10-3 /uL 130-40 0 Not Available [facility] [address] [place], [address], 09/16/2023 14:57:20 09/16/19 24 09/16/2023 CBC WITH AUTO DIFF mean platelet volume 10.2 fL 7-11 Not Available [facility] [address] [place], [address], 09/16/2023 14:57:20 09/16/19 24 09/16/2023 CBC WITH AUTO DIFF NRBC % auto 0.0 % <1 Not Available [facility] [address] [place], [address], 09/16/2023 14:57:20 09/16/19 24 09/16/2023 CBC WITH AUTO DIFF neut % 61.7 % Not Available [facility] [address] [place], [address], 09/16/2023 14:57:20 09/16/19 24 09/16/2023 CBC WITH AUTO DIFF lymph % 23.9 % Not Available [facility] [address] [place], [address], 09/16/2023 14:57:20 09/16/19 24 09/16/2023 CBC WITH AUTO DIFF mono % 8.8 % Not Available [facility] [address] [place], [address], 09/16/2023 14:57:20 09/16/19 24 09/16/2023 CBC WITH AUTO DIFF eos % 4.0 % Not Available [facility] [address] [place], [address], 09/16/2023 14:57:20 09/16/19 24 09/16/2023 CBC WITH AUTO DIFF baso % 0.4 % Not Available [facility] [address] [place], [address], 09/16/2023 14:57:20 09/16/19 24 09/16/2023 CBC WITH AUTO DIFF immature granulocytes % 1.2 % Not Available [facility] [address] [place], [address], 09/16/2023 14:57:20 09/16/19 24 09/16/2023 CBC WITH AUTO DIFF NRBC # auto 0.00 x10-3 /uL <0.1 Not Available [facility] [address] [place], [address], 09/16/2023 14:57:20 09/16/19 24 09/16/2023 CBC WITH AUTO DIFF absolute neut 1.55 x10-3 /uL 1.5-7. 0 Not Available [facility] [address] [place], [address], 09/16/2023 14:57:20 09/16/19 24 09/16/2023 CBC WITH AUTO DIFF lymph # 0.60 x10-3 /uL 1-5.0 low Not Available [facility] [address] [place] [address], [address], 09/16/2023 14:57:20 09/16/19 24 09/16/2023 CBC WITH AUTO DIFF mono # 0.22 x10-3 /uL 0.2-1. 0 Not Available [facility] [address] [place] [address], [address], 09/16/2023 14:57:20 09/16/19 24 09/16/2023 CBC WITH AUTO DIFF eos # 0.10 x10-3 /uL 0-0.5 Not Available [facility] [address] [place] [address], [address], 09/16/2023 14:57:20 09/16/19 24 09/16/2023 CBC WITH AUTO DIFF baso # 0.01 x10-3 /uL 0-0.2 Not Available [facility] [address] [place] [address], [address], 09/16/2023 14:57:20 09/16/19 24 09/16/2023 CBC WITH AUTO DIFF immature granulocytes # 0.03 x10-3 /uL 0-0.03 Not Available [facility] [address] [place] [address], [address], 09/16/2023 14:57:20 09/16/19 24 09/16/2023 CBC WITH AUTO DIFF performing lab [facility] a [facility] of [facility] Of [address] [place] [address] Medic al Direc nando staley MD Not Available [facility] [address] [place] [address], [address], 09/16/2023 14:57:20 09/16/19 24 09/16/2023 HEPAT ITIS [...] 72 hours . Not Available [facility] [address] [place] [address], [address], 09/16/2023 15:07:21 09/16/19 24 09/16/2023 HEPAT ITIS B SURFA CE ANTIG EN performing lab [facility] of [facility] [address] [place] [address] Medic al Direc nando staley MD Not Available [facility] [address] [place] [address], [address], 09/16/2023 15:07:21 09/16/19 24 09/16/2023 HEPAT ITIS C VIRUS DIAGN OSTIC hepatitis C virus diagnostic NEGATI VE negati ve Not Available [facility] [address] [place] [address], [address], 09/16/2023 15:34:26 09/16/19 24 09/16/2023 HEPAT ITIS C VIRUS DIAGN OSTIC performing lab [facility] ty [address] [place] [address] Medic al Direc nando staley MD Not Available [facility] [address] [place] [address], [address], 09/16/2023 15:34:26 09/16/19 24 09/17/2023 HIV VIRAL LOAD HIV viral load qual DETECT ED not detect . abnormal HIV RNA detec wayne, but <20 copie s/mL Not Available [facility] [address] [place] [address], [address], 09/17/2023 09:38:12 09/16/19 24 09/17/2023 HIV VIRAL LOAD HIV viral load quant < 20 <20 Not Available [facility] [address] [place] [address], [address], 09/17/2023 09:38:12 09/16/19 24 09/17/2023 HIV VIRAL LOAD HIV viral load log < 1.30 <1.30 Not Available [facility] [address] [place] [address], [address], 09/17/2023 09:38:12 09/16/19 24 09/17/2023 HIV VIRAL LOAD performing lab [facility] abnormal [facility] mem[facility] r of [address] [place] [address] Medic al Dire nando staley MD Not Available [facility] [address] [place] [address], [address], 09/17/2023 09:38:12 09/16/19 24 09/17/2023 CHLAM YDIA DNA URINE chlamydia DNA urine NEGATI VE negati ve Not Available [facility] [address] [place] [address], [address], 09/17/2023 10:31:15 09/16/19 24 09/17/2023 GC DNA URINE GC DNA urine NEGATI VE negati ve Not Available [facility] [address] [place] [address], [address], 09/17/2023 10:31:15 09/16/19 24 09/17/2023 GC DNA URINE performing lab [facility] r of [address] [place] [address] Medic al Dire nando staley MD Not Available [facility] [address] [place] [address], [address], 09/17/2023 10:31:15 09/16/19 24 09/17/2023 TREPO NEMAL AB treponemal Ab NEGATI VE negati ve Not Available [facility] [address] [place] [address], [address], 09/17/2023 16:25:00 09/16/19 24 09/18/2023 QUANT IFERO N PLUS qft plus interpretati on NEGATI VE negati ve Not Available [facility] [address] [place], [address], 09/18/2023 13:35:27 09/16/19 24 09/18/2023 QUANT IFERO N PLUS qft plus interpretati on NEGATI VE negati ve Not Available [facility] [address] [place], [address], 09/18/2023 14:34:30 09/16/19 24 09/18/2023 T4T8 PANEL percent cd3 91 % 55-86 high Not Available [facility] [address] [place], [address], 09/18/2023 14:34:31 09/16/19 24 09/18/2023 T4T8 PANEL absolute cd3 565 cell/ uL 704-21 38 low Not Available [facility] [address] [place], [address], 09/18/2023 14:34:31 09/16/19 24 09/18/2023 T4T8 PANEL percent cd8 56 % 9-37 high Not Available [facility] [address] [place], [address], 09/18/2023 14:34:31 09/16/19 24 09/18/2023 T4T8 PANEL absolute cd8 350 cell/ uL 190-83 2 Not Available [facility] [address] [place], [address], 09/18/2023 14:34:31 09/16/19 24 09/18/2023 T4T8 PANEL percent cd4 30 % 35-66 low Not Available [facility] [address] [place], [address], 09/18/2023 14:34:31 09/16/19 24 09/18/2023 T4T8 PANEL absolute cd4 188 cell/ uL 443-14 71 low Not Available [facility] [address] [place], [address], 09/18/2023 14:34:31 09/16/19 24 09/18/2023 T4T8 PANEL percent cd19 4 % 4-25 Not Available [facility] [address] [place], [address], 09/18/2023 14:34:31 09/16/19 24 09/18/2023 T4T8 PANEL absolute cd19 22 cell/ uL 100-52 4 low Not Available [facility] [address] [place], [address], 09/18/2023 14:34:31 09/16/19 24 09/18/2023 T4T8 PANEL cd4 cd8 ratio 0.5 1.0-3. 7 low Test perfo rmed at [facility] , [address], [place] [address] [phone] Not Available [facility] [address] [place], [address], 09/18/2023 14:34:31 09/16/19 24 09/18/2023 T4T8 PANEL percent cd56 5 % 3-24 Not Available [facility] [address] [place], [address], 09/18/2023 14:34:31 09/16/19 24 09/18/2023 T4T8 PANEL absolute cd56 33 cell/ uL 60-500 low Not Available [facility] [address] [place] [address], [address], 09/18/2023 14:34:31 10/15/19 24 10/15/2023 WOUND CULTU RE performing lab [facility] [address] [facility] [place] [address] Medic al Direc nando staley MD Not Available [facility] [address] [place] [address], [address], 11/11/2023 08:02:27 10/15/19 24 10/18/2023 WOUND CULTU RE wound culture FINAL : No patho gens noted SKIN COCO NOTED GRAM STAIN RESUL T NO POLYS NOTED NO EPITH ELIAL CELLS NOTED FEW GRAM NEGAT CORNELIA BACIL LI FEW GRAM POSIT CORNELIA COCCI IN PAIRS Not Available [facility] [address] [place], [address], 11/11/2023 08:02:27 10/15/19 24 10/15/2023 FUNGU S CULTU RE,OT HER performing lab [facility], a [facility] of [facility] Of [address] [place] [address] Medic al Direc nando staley MD Not Available [facility] [address] [place] [address], [address], 11/11/2023 08:02:30 10/15/19 24 11/11/2023 FUNGU S CULTU RE,OT HER fungus culture,othe r Negati ve for Fungus after 4 weeks Not Available [facility] [address] [place] [address], [address], 11/11/2023 08:02:30 03/30/20 24 03/30/2024 CBC WITH AUTO DIFFE RENTI AL WBC 3.6 K/mcL 4.8-10 .8 low Not Available [facility] [address] [place] [address], [address], 03/30/2024 12:58:12 03/30/20 24 03/30/2024 CBC WITH AUTO DIFFE RENTI AL RBC 4.30 M/mcL 3.80-4 .80 Not Available [facility] [address] [place] [address], [address], 03/30/2024 12:58:12 03/30/20 24 03/30/2024 CBC WITH AUTO DIFFE RENTI AL hemoglobin 13.6 g/dL 11.5-1 6.0 Not Available [facility] [address] [place] [address], [address], 03/30/2024 12:58:12 03/30/20 24 03/30/2024 CBC WITH AUTO DIFFE RENTI AL hematocrit 41.7 % 35.0-4 7.0 Not Available [facility] [address] [place] [address], [address], 03/30/2024 12:58:12 03/30/20 24 03/30/2024 CBC WITH AUTO DIFFE RENTI AL MCV 97.0 fL 79.0-9 8.0 Not Available [facility] [address] [place], [address], 03/30/2024 12:58:12 03/30/20 24 03/30/2024 CBC WITH AUTO DIFFE RENTI AL MCH 31.6 pcg 27.0-3 2.0 Not Available [facility] [address] [place], [address], 03/30/2024 12:58:12 03/30/20 24 03/30/2024 CBC WITH AUTO DIFFE RENTI AL MCHC 32.6 g/dL 32.0-3 7.0 Not Available [facility] [address] [place], [address], 03/30/2024 12:58:12 03/30/20 24 03/30/2024 CBC WITH AUTO DIFFE RENTI AL RDW 12.2 % 11.0-1 5.0 Not Available [facility] [address] [place], [address], 03/30/2024 12:58:12 03/30/20 24 03/30/2024 CBC WITH AUTO DIFFE RENTI AL platelets 142 K/mcL 130-40 0 Not Available [facility] [address] [place], [address], 03/30/2024 12:58:12 03/30/20 24 03/30/2024 CBC WITH AUTO DIFFE RENTI AL MPV 10.7 fL 7.0-11 .0 Not Available [facility] [address] [place], [address], 03/30/2024 12:58:12 03/30/20 24 03/30/2024 CBC WITH AUTO DIFFE RENTI AL NRBC 0.0 % <1.0 Not Available [facility] [address] [place], [address], 03/30/2024 12:58:12 03/30/20 24 03/30/2024 CBC WITH AUTO DIFFE RENTI AL NRBC absolute 0.00 K/mcL <0.10 Not Available [facility] [address] [place], [address], 03/30/2024 12:58:12 03/30/20 24 03/30/2024 CBC WITH AUTO DIFFE RENTI AL neutrophils relative 63.2 % Not Available [facility] [address] [place], [address], 03/30/2024 12:58:12 03/30/20 24 03/30/2024 CBC WITH AUTO DIFFE RENTI AL lymphocytes relative 23.9 % Not Available [facility] [address] [place], [address], 03/30/2024 12:58:12 03/30/20 24 03/30/2024 CBC WITH AUTO DIFFE RENTI AL monocytes relative 7.7 % Not Available [facility] [address] [place], [address], 03/30/2024 12:58:12 03/30/20 24 03/30/2024 CBC WITH AUTO DIFFE RENTI AL eosinophils relative 3.6 % Not Available [facility] [address] [place], [address], 03/30/2024 12:58:12 03/30/20 24 03/30/2024 CBC WITH AUTO DIFFE RENTI AL basophils relative 1.1 % Not Available [facility] [address] [place], [address], 03/30/2024 12:58:12 03/30/20 24 03/30/2024 CBC WITH AUTO DIFFE RENTI AL immature granulocytes relative 0.5 % Not Available [facility] [address] [place], [address], 03/30/2024 12:58:12 03/30/20 24 03/30/2024 CBC WITH AUTO DIFFE RENTI AL neutrophils absolute 2.30 K/mcL 1.50-7 .00 Not Available [facility] [address] [place], [address], 03/30/2024 12:58:12 03/30/20 24 03/30/2024 CBC WITH AUTO DIFFE RENTI AL lymphocytes absolute 0.87 K/mcL 1.00-5 .00 low Not Available [facility] [address] [place] [address], [address], 03/30/2024 12:58:12 03/30/20 24 03/30/2024 CBC WITH AUTO DIFFE RENTI AL monocytes absolute 0.28 K/mcL 0.20-1 .00 Not Available [facility] [address] [place] [address], [address], 03/30/2024 12:58:12 03/30/20 24 03/30/2024 CBC WITH AUTO DIFFE RENTI AL eosinophils absolute 0.13 K/mcL 0.00-0 .50 Not Available [facility] [address] [place] [address], [address], 03/30/2024 12:58:12 03/30/20 24 03/30/2024 CBC WITH AUTO DIFFE RENTI AL basophils absolute 0.04 K/mcL 0.00-0 .20 Not Available [facility] [address] [place] [address], [address], 03/30/2024 12:58:12 03/30/20 24 03/30/2024 CBC WITH AUTO DIFFE RENTI AL immature granulocytes absolute 0.02 K/mcL 0.00-0 .03 Not Available [facility] [address] [place] [address], [address], 03/30/2024 12:58:12 03/30/20 24 03/30/2024 CBC WITH AUTO DIFFE RENTI AL note See Report [facility] [address] [facility], [place] mungu[place], [place] [address] Not Available [facility] [address] [place] [address], [address], 03/30/2024 12:58:12 03/30/20 24 03/30/2024 CREAT ININE creatinine 0.69 mg/dL 0.50-1 .10 Not Available [facility] [address] [place], [address], 03/30/2024 17:56:47 03/30/20 24 03/30/2024 CREAT ININE eGFR 95 mL/mi n/1.7 3m2 >=60 Calcu latio n based on the Chron ic Kidne y Disea se Epide miolo gy Colla borat ion (CKD- EPI) equat ion refit witho ut adjus tment for race. Not Available [facility] [address] [place] [address], [address], 03/30/2024 17:56:47 03/30/20 24 03/30/2024 CREAT ININE note See Report [facility], [address] [place] [address], [place]a schwab d, [place] [id number] Not Available [facility] [address] [place] [address], [address], 03/30/2024 17:56:47 03/30/20 24 03/30/2024 ELECT ROLYT E PANEL sodium 138 mmol/ L 133-14 5 Not Available [facility] [address] [place] [address], 15[address], 03/30/2024 18:02:50 03/30/20 24 03/30/2024 ELECT ROLYT E PANEL potassium 4.1 mmol/ L 3.5-5. 5 Not Available [facility] [address] [place] [address], [address], 03/30/2024 18:02:50 03/30/20 24 03/30/2024 ELECT ROLYT E PANEL chloride 102 mmol/ L 96-110 Not Available [facility] [address] [place], [address], 03/30/2024 18:02:50 03/30/20 24 03/30/2024 ELECT ROLYT E PANEL CO2 33 mmol/ L 21-32 high Not Available [facility] [address] [place] [address], [address], 03/30/2024 18:02:50 03/30/20 24 03/30/2024 ELECT ROLYT E PANEL anion gap 3 3-11 Not Available [facility] [address] [place], [address], 03/30/2024 18:02:50 03/30/20 24 03/30/2024 ELECT ROLYT E PANEL note See Report [facility], [address] [facility], Álvaroin gfiel d, [place] [address] Not Available [facility] [address] [place], [address], 03/30/2024 18:02:50 03/30/20 24 03/30/2024 TREPO NEMA PALLI DUM ANTIB DAGO WITH REFLE X TO RPR AND PARTI SANDRA AGGLU TINAT ION T. pallidum antibodies Negati ve negati ve Not Available [facility] [address] [place] [address], [address], 03/30/2024 18:09:53 03/30/20 24 03/30/2024 TREPO NEMA PALLI DUM ANTIB DAGO WITH REFLE X TO RPR AND PARTI SANDRA AGGLU TINAT ION note See Report [facility], [address] [facility], Hansa gfiel d, [facility] [address] Not Available [facility] [address] [place], [address], 03/30/2024 18:09:53 03/30/20 24 03/30/2024 HIV 1 MOLEC ULAR STUDY QUANT ITATI VE HIV-1 RNA interpretati on Not Detect ed not detect ed HIV RNA not detec wayne, unabl e to repor t quant itati ve resul ts. Not Available [facility] [address] [place], [address], 03/31/2024 11:57:02 03/30/20 24 03/30/2024 HIV 1 MOLEC ULAR STUDY QUANT ITATI VE note See Report [facility], [address] [facility], Hansa dysoniel d, [place] [address] Not Available [facility] [address] [place], [address], 03/31/2024 11:57:02 03/30/20 24 03/30/2024 LYMPH OCYTE T-OMI L PANEL cd4 292 cells /mcL 426-17 76 low Not Available [facility] [address] [place] [address], 05[address], 03/31/2024 12:28:06 03/30/20 24 03/30/2024 LYMPH OCYTE T-OMI L PANEL cd8 452 cells /mcL 161-83 8 Not Available [facility] [address] [place] [address], [address], 03/31/2024 12:28:06 03/30/20 24 03/30/2024 LYMPH OCYTE T-OMI L PANEL cd4/cd8 ratio 0.65 0.90-4 .90 low Not Available [facility] [address] [place] [address], [address], 03/31/2024 12:28:06 03/30/20 24 03/30/2024 LYMPH OCYTE T-OMI L PANEL cd4 % 34 % 33-64 Not Available [facility] [address] [place] [address], [address], 03/31/2024 12:28:06 03/30/20 24 03/30/2024 LYMPH OCYTE T-OMI L PANEL cd8 % 52 % 10-39 high Not Available [facility] [address] [place] [address], [address], 03/31/2024 12:28:06 03/30/20 24 03/30/2024 LYMPH OCYTE T-MOI L PANEL note See Report [facility], [address] [facility], Hansa schwab d, [place] [address] Not Available [facility] [address] [place] [address], [address], 03/31/2024 12:28:06 12/22/19 25 12/21/2024 CBC WITH AUTO DIFFE RENTI AL WBC 2.5 K/mcL 4.8-10 .8 low Not Available [facility] [address] [place] [address], [address], 12/21/2024 16:31:22 12/22/19 25 12/21/2024 CBC WITH AUTO DIFFE RENTI AL RBC 3.90 M/mcL 3.80-4 .80 Not Available [facility] [address] [place], [address], 12/21/2024 16:31:22 12/22/19 25 12/21/2024 CBC WITH AUTO DIFFE RENTI AL hemoglobin 12.6 g/dL 11.5-1 6.0 Not Available [facility] [address] [place], [address], 12/21/2024 16:31:22 12/22/19 25 12/21/2024 CBC WITH AUTO DIFFE RENTI AL hematocrit 38.3 % 35.0-4 7.0 Not Available [facility] [address] [place], [address], 12/21/2024 16:31:22 12/22/19 25 12/21/2024 CBC WITH AUTO DIFFE RENTI AL MCV 97.2 fL 79.0-9 8.0 Not Available [facility] [address] [place], [address], 12/21/2024 16:31:22 12/22/19 25 12/21/2024 CBC WITH AUTO DIFFE RENTI AL MCH 32.0 pcg 27.0-3 2.0 Not Available [facility] [address] [place], [address], 12/21/2024 16:31:22 12/22/19 25 12/21/2024 CBC WITH AUTO DIFFE RENTI AL MCHC 32.9 g/dL 32.0-3 7.0 Not Available [facility] [address] [place], [address], 12/21/2024 16:31:22 12/22/19 25 12/21/2024 CBC WITH AUTO DIFFE RENTI AL RDW 12.2 % 11.0-1 5.0 Not Available [facility] [address] [place], [address], 12/21/2024 16:31:22 12/22/19 25 12/21/2024 CBC WITH AUTO DIFFE RENTI AL platelets 140 K/mcL 130-40 0 Not Available [facility] [address] [place], [address], 12/21/2024 16:31:22 12/22/19 25 12/21/2024 CBC WITH AUTO DIFFE RENTI AL MPV 9.8 fL 7.0-11 .0 Not Available [facility] [address] [place], [address], 12/21/2024 16:31:22 12/22/19 25 12/21/2024 CBC WITH AUTO DIFFE RENTI AL NRBC 0.0 % <1.0 Not Available [facility] [address] [place], [address], 12/21/2024 16:31:22 12/22/19 25 12/21/2024 CBC WITH AUTO DIFFE RENTI AL NRBC absolute 0.00 K/mcL <0.10 Not Available [facility] [address] [place], [address], 12/21/2024 16:31:22 12/22/19 25 12/21/2024 CBC WITH AUTO DIFFE RENTI AL neutrophils relative 59.6 % Not Available [facility] [address] [place], [address], 12/21/2024 16:31:22 12/22/19 25 12/21/2024 CBC WITH AUTO DIFFE RENTI AL lymphocytes relative 24.5 % Not Available [facility] [address] [place], [address], 12/21/2024 16:31:22 12/22/19 25 12/21/2024 CBC WITH AUTO DIFFE RENTI AL monocytes relative 15.1 % Not Available [facility] [address] [place], [address], 12/21/2024 16:31:22 12/22/19 25 12/21/2024 CBC WITH AUTO DIFFE RENTI AL eosinophils relative 0.0 % Not Available [facility] [address] [place], [address], 12/21/2024 16:31:22 12/22/19 25 12/21/2024 CBC WITH AUTO DIFFE RENTI AL basophils relative 0.4 % Not Available [facility] [address] [place], [address], 12/21/2024 16:31:22 12/22/19 25 12/21/2024 CBC WITH AUTO DIFFE RENTI AL immature granulocytes relative 0.4 % Not Available [facility] [address] [place], [address], 12/21/2024 16:31:22 12/22/19 25 12/21/2024 CBC WITH AUTO DIFFE RENTI AL neutrophils absolute 1.46 K/mcL 1.50-7 .00 low Not Available [facility] [address] [place], [address], 12/21/2024 16:31:22 12/22/19 25 12/21/2024 CBC WITH AUTO DIFFE RENTI AL lymphocytes absolute 0.60 K/mcL 1.00-5 .00 low Not Available [facility] [address] [place], [address], 12/21/2024 16:31:22 12/22/19 25 12/21/2024 CBC WITH AUTO DIFFE RENTI AL monocytes absolute 0.37 K/mcL 0.20-1 .00 Not Available [facility] [address] [place], [address], 12/21/2024 16:31:22 12/22/19 25 12/21/2024 CBC WITH AUTO DIFFE RENTI AL eosinophils absolute 0.00 K/mcL 0.00-0 .50 Not Available [facility] [address] [place], [address], 12/21/2024 16:31:22 12/22/19 25 12/21/2024 CBC WITH AUTO DIFFE RENTI AL basophils absolute 0.01 K/mcL 0.00-0 .20 Not Available [facility] [address] [place], [address], 12/21/2024 16:31:22 12/22/19 25 12/21/2024 CBC WITH AUTO DIFFE RENTI AL immature granulocytes absolute 0.01 K/mcL 0.00-0 .03 Not Available [facility] [address] [place], [address], 12/21/2024 16:31:22 12/22/19 25 12/21/2024 CBC WITH AUTO DIFFE RENTI AL note See Report [facility], [address] [facility], Sprin gfiel d, [place] [address] Not Available [facility] [address] [place], [address], 12/21/2024 16:31:22 12/22/19 25 12/21/2024 COMPR EHENS CORNELIA METAB OLIC PANEL sodium 134 mmol/ L 133-14 5 Not Available [facility] [address] [place], [address], 12/21/2024 16:40:27 12/22/19 25 12/21/2024 COMPR EHENS CORNELIA METAB OLIC PANEL potassium 3.5 mmol/ L 3.5-5. 5 Not Available [facility] [address] [place], [address], 12/21/2024 16:40:27 12/22/19 25 12/21/2024 COMPR EHENS CORNELIA METAB OLIC PANEL chloride 98 mmol/ L 96-110 Not Available [facility] [address] [place], [address], 12/21/2024 16:40:27 12/22/19 25 12/21/2024 COMPR EHENS CORNELIA METAB OLIC PANEL CO2 32 mmol/ L 21-32 Not Available [facility] [address] [place], [address], 12/21/2024 16:40:27 12/22/19 25 12/21/2024 COMPR EHENS CORNELIA METAB OLIC PANEL anion gap 4 3-11 Not Available [facility] [address] [place], [address], 12/21/2024 16:40:27 12/22/19 25 12/21/2024 COMPR EHENS CORNELIA METAB OLIC PANEL glucose 125 mg/dL 70-100 high Not Available [facility] [address] [place], [address], 12/21/2024 16:40:27 12/22/19 25 12/21/2024 COMPR EHENS CORNELIA METAB OLIC PANEL BUN 14 mg/dL 5-25 Not Available [facility] [address] [place], [address], 12/21/2024 16:40:27 12/22/19 25 12/21/2024 COMPR EHENS CORNELIA METAB OLIC PANEL creatinine 0.74 mg/dL 0.50-1 .10 Not Available [facility] [address] [place], [address], 12/21/2024 16:40:27 12/22/1912/21/2024 COMPR EHENS CORNELIA METAB OLIC PANEL eGFR 88 mL/mi n/1.7 3m2 >=60 Calcu latio n based on the Chron ic Kidne y Disea se Epide miolo gy Colla borat ion (CKD- EPI) equat ion refit witho ut adjus tment for race. Not Available [facility] [address] [place], [address], 12/21/2024 16:40:27 12/22/1912/21/2024 COMPR EHENS CORNELIA METAB OLIC PANEL BUN/creatini ne ratio 18.9 Not Available [facility] [address] [place], [address], 12/21/2024 16:40:27 12/22/19 25 12/21/2024 COMPR EHENS CORNELIA METAB OLIC PANEL calcium 8.8 mg/dL 8.5-10 .5 Not Available [facility] [address] [place], [address], 12/21/2024 16:40:27 12/22/19 25 12/21/2024 COMPR EHENS CORNELIA METAB OLIC PANEL AST (SGOT) 34 unit/ L 10-42 Not Available [facility] [address] [place], [address], 12/21/2024 16:40:27 12/22/19 25 12/21/2024 COMPR EHENS CORNELIA METAB OLIC PANEL ALT (SGPT) 39 unit/ L 10-60 Not Available [facility] [address] [place] [address], [address], 12/21/2024 16:40:27 12/22/19 25 12/21/2024 COMPR EHENS CORNELIA METAB OLIC PANEL alkaline phosphatase 128 unit/ L 42-121 high Not Available [facility] [address] [place] [address], [address], 12/21/2024 16:40:27 12/22/19 25 12/21/2024 COMPR EHENS CORNELIA METAB OLIC PANEL total protein 6.9 g/dL 6.0-8. 0 Not Available [facility] [address] [place] [address], 6[address], 12/21/2024 16:40:27 12/22/19 25 12/21/2024 COMPR EHENS CORNELIA METAB OLIC PANEL albumin 3.9 g/dL 3.2-5. 0 Not Available [facility] [address] [place] [address], 7[address], 12/21/2024 16:40:27 12/22/19 25 12/21/2024 COMPR EHENS CORNELIA METAB OLIC PANEL total bilirubin 0.7 mg/dL 0.0-1. 4 Not Available [facility] [address] [place] [address], [address], 12/21/2024 16:40:27 12/22/19 25 12/21/2024 COMPR EHENS CORNELIA METAB OLIC PANEL note See Report [facility], [address] [facility], Hansa schwab d, [place] [address] Not Available [facility] [address] [place] [address], [address], 12/21/2024 16:40:27 12/22/19 25 12/21/2024 HEPAT ITIS B SURFA CE ANTIG EN WITH REFLE X TO CONFI RMATI ON hepatitis B surface Ag Negati ve negati ve Not Available [facility] [address] [place], [address], 12/21/2024 17:34:43 12/22/19 25 12/21/2024 HEPAT ITIS B SURFA CE ANTIG EN WITH REFLE X TO CONFI RMATI ON note See Report [facility], [address] [facility], Á[place]varoin gfiel d[facility] [address] Not Available [facility] [address] [place], [address], 12/21/2024 17:34:43 12/22/19 25 12/21/2024 TREPO NEMA PALLI DUM ANTIB DAGO WITH REFLE X TO RPR AND PARTI SANDRA AGGLU TINAT ION T. pallidum antibodies Negati ve negati ve Not Available [facility] [address] [place], [address], 12/21/2024 17:34:45 12/22/19 25 12/21/2024 TREPO NEMA PALLI DUM ANTIB DAGO WITH REFLE X TO RPR AND PARTI SANDRA AGGLU TINAT ION note See Report [facility], [address] [facility], [place]a dysoniel d, [facility] [address] Not Available [facility] [address] [place], [address], 12/21/2024 17:34:45 12/22/19 25 12/21/2024 HEPAT ITIS C ANTIB DAGO hepatitis C antibody Negati ve negati ve Not Available [facility] [address] [place], [address], 12/21/2024 18:03:47 12/22/19 25 12/21/2024 HEPAT ITIS C ANTIB DAGO note See Report [facility], [address] [facility] [address] Not Available [facility] [address] [place], [address], 12/21/2024 18:03:47 12/22/19 25 12/21/2024 CHLAM YDIA TRACH OMATI S AND NEISS ERIA GONOR RHOEA E MOLEC ULAR STUDY .note See Note Origi nal Order ing Provi david: LORIE IA T MARTO ANTONIO [facility] - [facility] - [address] [facility], [place] munguia, [place] [address] Not Available [facility] [address] [place], [address], 12/22/2024 11:07:03 12/22/19 25 12/21/2024 CHLAM YDIA TRACH OMATI S AND NEISS ERIA GONOR RHOEA E MOLEC ULAR STUDY neisseria gonorrhoeae PCR Negati ve negati ve Not Available [facility] [address] [place], [address], 12/22/2024 11:07:03 12/22/19 25 12/21/2024 CHLAM YDIA TRACH OMATI S AND NEISS ERIA GONOR RHOEA E MOLEC ULAR STUDY chlamydia trachomatis PCR Negati ve negati ve Not Available [facility] [address] [place] [address], [address], 12/22/2024 11:07:03 12/22/19 25 12/21/2024 HIV 1 MOLEC ULAR STUDY QUANT ITATI VE HIV-1 RNA interpretati on Not Detect ed not detect ed HIV RNA not detec wayne, unabl e to repor t quant itati ve resul ts. Not Available [facility] [address] [place] [address], [address], 12/22/2024 14:56:11 12/22/19 25 12/21/2024 HIV 1 MOLEC ULAR STUDY QUANT ITATI VE note See Report [facility], [address] [facility], [place], [place] [address] Not Available [facility] [address] [place], [address], 12/22/2024 14:56:11 12/22/19 25 12/21/2024 LYMPH OCYTE T-OMI L PANEL cd4 162 cells /mcL 426-17 76 low Not Available [facility] [address] [place], [address], 12/25/2024 09:23:46 12/22/19 12/21/2024 LYMPH OCYTE T-OMI L PANEL cd8 268 cells /mcL 161-83 8 Not Available [facility] [address] [place] [address], [address], 12/25/2024 09:23:46 12/22/19 25 12/21/2024 LYMPH OCYTE T-OMI L PANEL cd4/cd8 ratio 0.60 0.90-4 .90 low Not Available [facility] [address] [place] [address], [address], 12/25/2024 09:23:46 12/22/19 25 12/21/2024 LYMPH OCYTE T-OMI L PANEL cd4 % 32 % 33-64 low Not Available [facility] [address] [place] [address], [address], 12/25/2024 09:23:46 12/22/19 25 12/21/2024 LYMPH OCYTE T-OMI L PANEL cd8 % 53 % 10-39 high Not Available [facility] [address] [place] [address], [address], 12/25/2024 09:23:46 12/22/19 25 12/21/2024 LYMPH OCYTE T-OMI L PANEL note See Report high [facility], [address] [facility], Sprin gfiel d, [place] [address] Not Available [facility] [address] [place] [address], [address], 12/25/2024 09:23:46 12/22/19 25 12/21/2024 T CELL SAMPLE PATTERNMAKER TOR TOTAL GENE REARR ANGEM ENT, MOLEC ULAR STUDY final diagnosis: SEE COMMEN TS Perip heral blood , T-omi l temporary receptionist tor gene rearr angem ent stacey sis: Posit cornelia. Clona l T-omi l temporary receptionist tor gene rearr angem ent was detec wayne. Detec tion of a clona l T-omi l temporary receptionist tor gene rearr angem ent does not neces saril y indic ate the prese nce of a T-omi l neopl asm. Appar ent clona l T-omi l popul ation s are parti cular ly likel y to occur in setti ngs where there is physi ologi c restr ictio n of the T-omi l reper toire , such as occur s in autoi mmune disor ders or with geraldine l aging . There fore, corre latio n with patho logic , clini sherley and other suppo rting (e.g. immun ophen otypi c) findi ngs is requi red for final inter preta tion of these resul ts. Metho d summa ry - T-omi l temporary receptionist tor gene rearr angem ent: A PCR-b ased assay was perfo rmed on extra cted DNA using prime rs that bind the gamma and beta chain genes . ----- ----- ----- ----A DDITI ONAL INFOR MATIO N---- ----- ----- ----- This test was devel oped using an stacey te speci fic reage nt. Its perfo rmanc e mamie cteri stics were deter mined by [facility] in a layne r consi stent with CLIA requi remen ts. This test has not been clear ed or appro brian by the U.S. Food and Drug Admin istra tion. Not Available [facility] [address] [place], [address], 12/28/2024 12:49:00 12/22/1912/21/2024 T CELL SAMPLE PATTERNMAKER TOR TOTAL GENE REARR ANGEM ENT, MOLEC ULAR STUDY signing pathologist Joe Bruno M.D. Test Perfo rmed by: [facility] [place] [facility] [address] , [place] [address] Lab Direc tor: Halima Camacho nn Ph.D. ; CLIA# [id number] Not Available [facility] [address] [place], [address], 12/28/2024 12:49:00 12/22/1912/21/2024 T CELL SAMPLE PATTERNMAKER TOR TOTAL GENE REARR ANGEM ENT, MOLEC ULAR STUDY note See Report [facility], [address] [facility], [place], [place] [address] Not Available [facility] [address] [place], [address], 12/28/2024 12:49:00 Result Notes None recorded. 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 Actinomyco tic infection of other specified sites; snomeddesc ription: Actinomyco tic infection; Report Immunity to Registry: Yes; Notes: CO laser ablation; Actinomyc otic infection; snomeddesc ription: Actinomyco tic infection; Report Immunity to Registry: Yes; Notes: CO laser ablation; Not Available [facility] 4 06:58:46 Gastroeso phageal reflux disease 842449273 Active 2013 Esophageal reflux; snomeddesc ription: Gastroesop hageal reflux disease; Report Immunity to Registry: Yes; Gastroeso phageal reflux disease; snomeddesc ription: Gastroesop hageal reflux disease; Report Immunity to Registry: Yes; Not Available [facility] 4 06:58:44 Osteopeni a 972952262 Active 2013 Osteopenia ; snomeddesc ription: Osteopenia ; Report Immunity to Registry: Yes; Not Available [facility] 4 06:58:45 Opioid dependenc e 90798009 Active 2013 Opioid dependence ; snomeddesc ription: Opioid dependence ; Report Immunity to Registry: Yes; Opioid type dependence , unspecifie d use; snomeddesc ription: Opioid dependence ; Report Immunity to Registry: Yes; Not Available [facility] 4 06:58:45 Disorder of bone and articular cartilage 354888494 Active 2013 Disorder of bone and cartilage, unspecifie d; snomeddesc ription: Osteopenia ; Report Immunity to Registry: Yes; Not Available [facility] 4 06:58:45 Malaise and fatigue 694729944 Active 2013 Other malaise and fatigue; snomeddesc ription: Fatigue; Report Immunity to Registry: Yes; Not Available [facility] 4 06:58:45 Fatigue 97543168 Active 2013 Fatigue; snomeddesc ription: Fatigue; Report Immunity to Registry: Yes; Not Available [facility] 4 06:58:45 Hyperlipi demia 15586794 Active 2013 Hyperlipid emia; snomeddesc ription: Hyperlipid emia; Report Immunity to Registry: Yes; Other and unspecifie d hyperlipid emia; snomeddesc ription: Hyperlipid emia; Report Immunity to Registry: Yes; Not Available [facility] 4 06:58:45 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 Candidiasi s of vulva and vagina; snomeddesc ription: Candidiasi s of vagina; Report Immunity to Registry: Yes; Not Available [facility] 4 06:58:46 Mixed hyperlipi demia 547637327 Active 2013 Mixed hyperlipid emia; snomeddesc ription: Mixed hyperlipid emia; Report Immunity to Registry: Yes; Not Available [facility] 4 06:58:46 Human immunodef iciency virus infection 22874894 Active 2013 Human immunodefi ciency virus [HIV] disease; snomeddesc ription: Human immunodefi ciency virus infection; Report Immunity to Registry: Yes; Human immunodefi ciency virus infection; snomeddesc ription: Human immunodefi ciency virus infection; Report Immunity to Registry: Yes; Not Available [facility] 4 06:58:46 Opioid dependenc e in remission 438808223 Active 2013 Opioid dependence in remission; snomeddesc ription: Opioid dependence in remission; Report Immunity to Registry: Yes; Opioid type dependence , in remission; snomeddesc ription: Opioid dependence in remission; Report Immunity to Registry: Yes; Not Available [facility] 4 06:58:46 Candidias is of vagina 48894563 Active 2013 Candidiasi s of vagina; snomeddesc ription: Candidiasi s of vagina; Report Immunity to Registry: Yes; Not Available [facility] 4 06:58:46 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 Lipodystro phy; snomeddesc ription: Lipodystro phy; Report Immunity to Registry: Yes; Not Available [facility] 4 06:58:45 Herpesvir us infection 51777187 Active 2016 Herpesviru s infection; snomeddesc ription: Herpesviru s infection; Report Immunity to Registry: Yes; Notes: HSv 1 pos; 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; Herpesvir al infection, unspecifie d; snomeddesc ription: Herpesviru s infection; Report Immunity to Registry: Yes; Notes: HSv 1 pos; 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; Not Available [facility] 4 06:58:46 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; snomeddesc ription: 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; Report Immunity to Registry: Yes; Notes: 01/2018; Not Available [facility] 4 06:58:[address] Concept Active 2018 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 Medical Equipment [...] 3; VACCINE_ IND: no; SU_FULL_ NAME: William chu; [...] tid; VACCINE_ IND: no; SU_FULL_ NAME: William chu; Not Available Not Available Not Available ciproflox [...] chu; Not Available Not Available Not Available Ritalin [...] qd; VACCINE_ IND: no; SU_FULL_ NAME: William Nascimento kimberley; Not Available Not Available Not Available citalopra [...] 1 tab po bid PRN for pain 12/17/ 2021 03/14 /2022 completed Duration : 10; VACCINE_ IND: no; SU_FULL_ NAME: William chu; [...] 30; VACCINE_ IND: no; SU_FULL_ NAME: William Martholger chu; Not Available Not Available Not [...] qd; VACCINE_ IND: no; SU_FULL_ NAME: William Ramirezholger [...] 3; VACCINE_ IND: no; SU_FULL_ NAME: William chu; [...] ccal polysacc haride PPV23; SU_FULL_ NAME: William Ramirezholger chu; VIS_DATE : 17:22:07 .0; Not Available [...] 150 mg 24 hr tablet, extended release TAKE 1 TABLET BY MOUTH EVERY 12 HOURS active Not Available Not Available No t Available nitrofura ntoin monohydra te/macroc rystals 100 mg [...] : 30; VACCINE_ IND: yes; VACCINE_ NAME: Tdap; SU_FULL_ NAME: William Amor; VIS_DATE : 04:00:00 [...] film DISSOLVE 1 FILM UNDER THE TONGUE DAILY active Not Available Not Available No [...] TAKE 1 TABLET BY MOUTH EVERY DAY active Not Available Not Available No t Available [facility] m[facility] (15 mcg x 4)/0.5 mL IM suspensio n quadriva lent Quantity : ; 0 refill(s ) 2018 active VACCINE_ IND: yes; VACCINE_ NAME: influenz a, injectab le, quadriva lent; SU_FULL_ NAME: William Nascimento l; VIS_DATE : 21:19:03 .0; Not Available Not Available Not Available [facility] m[facility] (15 mcg x 4)/0.5 mL intramusc ular susp. quadriva lent Quantity : ; 0 refill(s ) 2018 active VACCINE_ IND: yes; VACCINE_ NAME: influenz a, injectab le, quadriva lent; SU_FULL_ NAME: William Ramirezholger chu; VIS_DATE : 16:13:57 .0; Not Available Not Available Not Available [facility] 15 billion cell capsule - Quantity : 30; 0 refill(s ) 07/28 completed VACCINE_ IND: no; SU_FULL_ NAME: William Ramirezholger l; Not Available Not Available Not Available [facility] Quad 60 mcg (15 mcg x 4)/0.5 mL intramusc ular susp. quadriva lent Quantity : ; 0 refill(s ) 2020 active VACCINE_ IND: yes; VACCINE_ DOCUMENT _DATE: 00:00:00 ; VACCINE_ DOCUMENT _NAME: Influenz a (Flu) (Inactiv ated or Recombin ant): 11/04/20; VACCINE_ NAME: influenz a, injectab le, quadriva lent; SU_FULL_ NAME: William Ramirezholger l; VIS_DATE : 18:00:55 .0; Not Available Not Available Not Available [facility] (6mo up) 60 mcg (15 mcg x [...] [degF] 10 /min 59 /min 18.1 kg/m2 22443.6 4 g 96 % 96 % 128/76 mm[Hg] Yvrose MORALES MD [facility] 4 14:47:26 Social History None recorded. Functional [...] pneumococcal polysaccharide PPV23 2 completed Not Available [facility] 05/22/2023 06:53:54 Influenza, split virus, quadrivalent, preservative 9 completed Not Available [facility] 05/22/2023 06:53:55 Influenza, split virus, quadrivalent, preservative 9 completed Not Available [facility] 05/22/2023 06:53:55 Influenza, split virus, quadrivalent, preservative 1 completed Not Available [facility] 05/22/2023 06:53:55 Past Encounters Encounter ID Performer Location Encounter Start Date Encounter Closed Date Diagnosis/Indication Diagnosis SNOMED-CT Code Diagnosis ICD10 Code Diagnosis IMO Codes Diagnosis Note [id number] William Morales MD Main Office [address] [place] [address] [place] [address] 12/05/2022 15:25:15 12/05/2022 15:39:18 Human immunodeficiency virus infection 76753817 B20 HIV: Continue Symtuza 1 tab po qd. strict compliance addressed to prevent viral resistance , keep viral suppressio n labs ordered shingles vaccine prescribed . COVID19 Bivalent booster recommende d U=U. pt aware of PreP availabili ty. plan of care recommende d Depressive disorder 35477 F32.A Cirrhosis of liver K74.60 yearly HCC screen with u/s ordered in setting of cirrhosis. [id number] William Morales MD Main Office [address] [place] [id number] 05/21/2023 16:39:52 05/21/2023 16:59:52 Human immunodeficiency virus infection 42412405 B20 HIV: Continue Symtuza 1 tab po qd. strict compliance addressed to prevent viral resistance , keep viral suppressio n labs ordered U=U. pt aware of PreP availabili ty. plan of care recommende d Depressive disorder 3547 9007 F32.A Cirrhosis of liver K74.60 yearly HCC screen with u/s ordered in setting of cirrhosis. [id number] William Morales MD Main Office [address] [place] [address] 6 09/23/2023 10:10:03 09/23/2023 10:50:20 Human immunodeficiency virus infection 72951303 B20 HIV: Continue Symtuza 1 tab po [...] Cirrhosis of liver K74.60 u/s stable 2023 [id number] William Morales MD Main Office [address] [place] [phone] 6 10/15/2023 14:32:43 10/15/2023 15:14:55 Human immunodeficiency virus infection 71898051 B20 HIV: Continue Symtuza 1 tab po qd. she is aware of TAF free options. clinical trial reviewed strict compliance addressed to prevent viral resistance , keep viral suppressio n U=U. pt aware of PreP availabili ty.DoxyPEP reviewed plan of care recommende d Depressive disorder 35477 F32.A stable on bupropion qd. Cirrhosis of liver K74.60 u/s stable 2024 Iron defic iency anemia 77015556 D50.9 Start iron qd.will monitor Cachexia 211867170 R64 Serostim for injection is indicated for [...] see dermatolog y or surgery for biopsy [id number] William Morales MD Main Office [address] [place] [address] 01/16/2024 16:19:36 01/20/2024 11:36:09 Human immunodeficiency virus infection 98900552 B20 HIV: Continue Symtuza 1 tab po [...] 9007 F32.A stable on bupropion qd. Cachexia 592788242 R64 she stopped Serostim,a t least for now..WIll consider bringing in med to get trained on injection use. [id number] William Morales MD Main Office [address] [place] [address] 11/23/2024 15:23:31 11/26/2024 08:15:51 Human immunodeficiency virus infection 12218414 B20 HIV: Continue Symtuza 1 tab po [...] disorder 3548 9007 F32.A stable on bupropion qd.refille d Seasonal a llergic rhinitis 100182800 J30.2 [id number] [facility]. [id number] William Morales MD Main Office [address] [facility] [place], [place] [address] 12/17/2024 09:02:20 12/17/2024 09:31:11 Human immunodeficiency virus infection 11720583 B20 HIV: Continue Symtuza 1 tab po qd. prefers to keep current regimen. she i aware of Biktarvy among other options.st rict compliance addressed to prevent viral resistance , keep viral suppressio nlabs this week: has lab req and faxed to [employer] es all vaccines.U =U. pt aware of PreP availabili ty.plan of care recommende d Depressive disorder 1349 9702 J52.A stable on bupropion qd.refille d Health Concerns Section Related Observation LastModified by Organization Detai ls LastModified Time None Recorded Concern Status LastModified by Organization Details LastModified Time None Recorded Advance Directives Directive None Recorded Payers Insurance Date Sequence Insurance Name Policy Number Policy Toth Covered Member ID Toth Member ID Guarantor Name 12/14/2024 1 [facility] - DOS ON OR AFTER 2022 - MEDICARE ADVANTAGE [place] (MEDICARE REPLACEMENT/ADV ANTAGE - PPO) Sandhya Cisneros [id number] Sandhya Cisneros Notes Date Note Type Note Provider Name [...] neg; HBV s ag neg; AST/ALT wnl; jZPO=937/2022 HIV VL nondetceted; ALt/AST wnl ; HCV neg; HBV s ag neg; wnl; eGFR>7004/2021: HIV VL nondetected. liver and kidney function ok. CD4>200not sexually activeno fever. no weight loss; no n/v/d. no rashdenies drug use.no ETOH use.not sexually activeu/s abd stable. William Morales MD [address] [place] [address], [phone], [place] MORALES MD [facility] 09/23/2023 11:49:23 10/15/2023 text/html ROS as noted [...] not treated. no dsicharge. William Morales MD [address] [place] [address], [phone], [place] MORALES MD [facility] 10/15/2023 16:22:31 01/16/2024 text/html ROS as noted [...] on doxycycline. stopped iron William Morales MD [address] [place] [address], [phone], [facility] WILLIAM MORALES MD [facility] 01/16/2024 17:58:22 11/23/2024 text/html ROS as noted [...] no rashsudafed for congestionrhinitis. requests tx 03/2024 KB1=068; HIV VLnondetected;eGFR=95; treponemal ab neg08/2023 HIV VL nondetceted; CD4= 188(30%); quant neg; treponemal neg; HCV VL neg; HBV s ag neg; AST/ALT wnl; eGFR=97; anemia HgB HIV VL nondetceted; ALt/AST wnl ; HCV neg; HBV s ag neg; wnl; eGFR>7004/2021: HIV VL nondetected. liver and kidney function ok. CD4>200 William Morales MD [address] [place] [address], [phone], [place] MORALES MD [facility] 11/24/2024 00:21:58 12/17/2024 text/html ROS as noted [...] activehas not been sickmed list reviewed. 03/2024 UD1=814; HIV VLnondetected;eGFR=95; treponemal ab neg08/2023 HIV VL nondetceted; CD4= 188(30%); quant neg; treponemal neg; HCV VL neg; HBV s ag neg; AST/ALT wnl; eGFR=97; anemia HgB 10. HIV VL nondetceted; ALt/AST wnl ; HCV neg; HBV s ag neg; wnl; eGFR>7004/2021: HIV VL nondetected. liver and kidney function ok. CD4>200 William Morales MD [address] [place], [phone], [place] MORALES MD [facility] 12/17/2024 09:24:11 OBGyn Episode No OBEpisode recorded.
--- OUTSIDE RECORDS SUMMARY | 2025-02-04 18:33 | XMS_ITS | Clinical Summary ---
Author Organization [address] Address [address] [place] [phone] Phone Care Team Providers Care Manager Home Name Role Phone Roxana Mendez MD Primary Care Provider [phone] Allergies No known active allergies Medications buprenorphine-n [...] 4 Active darunavir-cobic istat-emtricita bine-tenofovir ala (Symtuza) [phone] mg per tablet Take 1 tablet by [...] kasie r depressive disorder without prior episode ([facility] V24) 10/16/2023 Frequent falls 09/16/2023 Overview (02/04/2024): With left-sided weakness, extensive hospitalization August 2023, believed to be related with severe C-spine disease 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 ([facility] V24, [facility] V28) 09/16/2023 Overview (02/04/2024): Believed to be related with frequent falls, severe multilevel neuroforaminal stenosis with most pronounced at C5-6, status post MRI, CT angiograms.note 09/16/23 Substance abuse ([facility] V24, [facility] V28) 09/15 Overview (02/04/2024): most recently Heroin, [...] followed by gastroenterology. She last saw her limnologist in 2023 for progressive weight loss. Workup [...] (02/04/2024): DEXA 12/13/10 Unspecified cirrhosis of liver ([facility] V24, [facility] V28) 03/09/2019 Type 2 diabetes mellitus wit h renal manifestations ([facility] V24, [facility] V28) 03/09/2019 Assessment & Plan (05/12/2024 1:10 [...] Fatigue 12/15/2018 Microalbuminuria 12/15/2018 Leukopenia 03/27/2018 Thrombocytopenia ([facility] V24) 03/29/2017 Cataracts, bilateral 07/20/2016 Posterior vitreous detachment 07/20/2016 Overview (02/04/2024): Bilat Chronic cholecystitis 12/27/2014 Vitamin D deficiency 12/26/2014 DM (diabetes mellitus), type 2 with neurological complications ([facility] V24, [facility] V28) 09/02/2014 Opiate dependence ([facility] V24, [facility] V28) 11/2014 Overview (02/04/2024): Suboxone Type 2 diabetes mellitus wit h cataract ([facility] V24, [facility] V28) 09/17/2011 Overview (02/04/2024): Nuclear sclerosis noted [...] just unsure what to do Educational Resources [place] Diabetes Association (www.diabetes.org) Centers for Disease Control and Prevention (www.cdc.gov/diabetes) This care plan was created in collaboration with Reba Cisneros on 10/08/2012 Adrenal insufficiency ([facility] V24) 12/30/2009 Human immunodeficiency virus (HIV) disease ([facility] V24, [facility] V28) 12/06/2006 Overview (02/04/2024): On meds since 2007- Dr. Ana Brizuela, viral load undetectable 10/08/18 Assessment & Plan (05/12/2024 1:10 PM EST): Patient is to continue Symtuza as prescribed by infectious disease. Patient is to continue following up with infectious disease. Cocaine abuse, episodic ([facility] V24, [facility] V2 8) 10/25/2006 GERD (gastroesophageal reflux disease) [...] context of patient's family history CAD and RI. Lifestyle modification was discussed. I recommend exercise [...] to free t4 and free t3; Future Immunizations Immunization Administration Dates Next Due Hepatitis B (Klmvjfg-W-Goony , Recombivax HB-Adult) 19yo and older 04/28/2007,03/07/2004,06/24/2000 [...] BREAST LUMPECTOMY UPPER GASTROINTESTINAL ENDOSCOPY 03/03/12 PROCEDURE: TN UPPER GI ENDOSCOPY PERFORMED; COMMENT: normal COLONOSCOPY 12/31/2006 PROCEDURE: HISTORICAL COLONOSCOPY; COMMENT: negative Medical History Medical History Date Comments Adrenal insufficiency ([facility] V24) 12/30/2009 DX:Adrenal insufficiency (HCC) Cataracts, bilateral 07/20/2016 DX:Cataract s, bilateral Chronic cholecystitis 12/27/2014 DX:Chronic cholecystitis Cocaine abuse, episodic ([facility] V24, [facility] V28) 10/25/2006 DX:Cocaine abuse, episodic ( HCC) DM (diabetes mellitus), type 2 with neurological complications ([facility] V24, [facility] V28) 09/02/2014 DX:DM (diabetes mellitus), t ype 2 with neurological complications ([facility]) Fatigue 12/15/2018 DX:Fatigue Fatty liver 03/09/2019 DX:Fatty [...] [facility] 03/02/2018. Human immunodeficiency virus (HIV) disease ([facility] V24, [facility] V28) 12/06/2006 DX:Human immunodefi ciency virus (HIV) disease ([facility]); COMMENT: On meds since 2007- Dr. Ana Brizuela, viral load undetectable 10/08/18 Leukopenia 03/27/2018 DX:Leukopenia Lumbar stenosis 03/09/2019 DX:Lumbar stenos is; COMMENT: L2-L3, L3-L4, MRI 08/2010 Major depressive disorder 10/25/2005 DX:Ben or depressive disorder Microalbuminuria 12/15/2018 DX:Microalbumin uria Opiate dependence ([facility] V 24, [facility] V28) 04/09/2014 DX:Opiate dependence ([facility]); COMMENT: Suboxone Osteopenia 03/09/2019 DX:Osteopenia; C OMMENT: DEXA 12/13/10 Posterior vitreous detachment 07/20/2016 DX :Posterior vitreous detachment; COMMENT: Bilat Suspected carrier of methici llin resistant Staphylococcus aureus (MRSA) 03/09/2019 DX:Suspected carrier of meth icillin resistant Staphylococcus aureus (MRSA); COMMENT: 01/2018 Thrombocytopenia ([facility] V24) 03/29/2017 D X:Thrombocytopenia (HCC) Type 2 diabetes mellitus wit h cataract ([facility] V24, [facility] V28) 09/17/2011 DX:Type 2 diabetes mellitus with cataract (HCC); COMMENT: Nuclear sclerosis noted by Dr. Cross Type 2 diabetes mellitus wit h renal manifestations ([facility] V24, [facility] V28) 03/09/2019 DX:Type 2 diabetes mellitus with renal manifestations (HCC) Unspecified cirrhosis of rustam er ([facility] V24, [facility] V28) 03/09/2019 DX:Unspecified cirrhosis of liver (HCC) [...] 11:15 AM EST Office Visit Adult Medicine [facility] [address] [place] [phone] Roxana Mendez MD [address] [place] [address] Health Maintenance Due Date Last Done Comments [...] Procedure Name Priority Date/Time Associated Diagnosis Comments EXTERNAL NEUROLOGY REPORT 12/25/2024 T CELL RECEPTOR TOTAL GENE REARRANGEMENT, MOLECULAR STUDY Routine 12/21/2024 1:29 PM EDT Human immunodeficiency virus (HIV) disease ([facility]/HCC V24, [facility]/HCC V28) Human immunodeficiency virus (HIV) disease (CMS/HCC V24, CMS/HCC V28) CBC WITH AUTO DIFFERENTIAL Routine 12/21/2024 1:29 PM EDT Acquired immune deficiency syndrome (CMS/HCC V24, CMS/HCC V28) CBC AND DIFFERENTIAL Routine 12/21/2024 1:29 [...] with neurological complications (CMS/HCC V24, CMS/HCC V28) URINE ALBUMIN CREATININE RATIO Routine 09/16/2023 DEPRESSION SCREENING Routine 02/20/2023 COLONOSCOPY Routine 10/17/2016 from Last 3 Months or Most Recently Relevant to Health Maintenance Results * External Neurology Report (12/25/2024) us Provider [facility] NEUROLOGY ORDERABLES Fin al Result * Hepatitis C antibody (12/21/2024 1:29 PM EDT) Pathologist [facility] Hepatitis C Antibody Negative Negative LAB CHEMISTRY METHOD 12/21/2024 6:02 PM EDT [facility] Blood Venous blood specimen / Unknown Venipuncture / Unknown 12/21/2024 1:29 PM EDT 12/21/2024 1:29 PM EDT Ana Brizuela MD LAB BLOOD ORDERABLES Lucy l Result [facility] [address] [place] [address], * Hepatitis B surface antigen with reflex to confirmation (12/21/2024 1:29 PM EDT) Pathologist [facility] Hepatitis B Surface Ag Negative Negative LAB CHEMISTRY METHOD 12/21/2024 5:33 PM EDT [facility] Blood Venous blood specimen / Unknown Venipuncture / Unknown 12/21/2024 1:29 PM EDT 12/21/2024 1:29 PM EDT Narrative [facility] - 12/21/2024 5:33 PM EDT Over the counter supplements containing high doses of biotin may interfere with this assay. If interference is suspected, patients shoud be retested after refraining from biotin supplements for 72 hours. Ana Brizuela MD LAB BLOOD ORDERABLES Lucy l Result Performing Organization Address City/[facility]/ZIP Co de Phone Number [facility] [address] [place] [address], [place] [phone] * Treponema pallidum antibody with reflex to RPR and particle agglutination (12/21/2024 1:29 PM EDT) Pathologist [facility] T. Pallidum Antibodies Negative Negative LAB CHEMISTRY METHOD 12/21/2024 5:33 PM EDT [facility] Blood Venous blood specimen / Unknown Venipuncture / Unknown 12/21/2024 1:29 PM EDT 12/21/2024 1:29 PM EDT Ana Brizuela MD LAB BLOOD ORDERABLES Lucy l Result Performing Organization Address [facility] Co de Phone Number [facility] [address] [place] [address], [place] [phone] * T cell receptor total gene rearrangement, molecular study (12/21/2024 1:29 PM EDT) [facility] Final Diagnosis: SEE COMMENTS 2024 12:44 PM EDT ED [facility] Comment: Peripheral blood, T-cell receptor gene rearrangement analysis: Positive. 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 Detection of a clonal T-cell receptor gene rearrangement does not necessarily indicate the presence of a T-cell neoplasm. Apparent clonal T-cell populations are particularly likely to occur in settings where there is physiologic restriction of the T-cell repertoire, such as occurs in autoimmune disorders or with normal aging. Therefore, correlation with pathologic, clinical and other supporting (e.g. immunophenotypic) findings is required for final interpretation of these results. Method summary - T-cell receptor gene rearrangement: A PCR-based assay was performed on extracted DNA using primers that bind the gamma and beta chain genes. ADDITIONAL INFORMATION This test was developed using an analyte specific reagent. Its performance characteristics were determined by [facility] in a manner consistent with CLIA requirements. This test has not been cleared or approved by the U.S. Food and Drug Administration. Signing Pathologist Joe Bruno M.D. 12/28/2024 12:44 PM EDT ED [facility] Comment: Test Performed by: [place] [address] Ward Secretary: Lenin Gottlieb Ph.D.; CLIA# [id number] Blood Venous blood specimen / Unknown Venipuncture / Unknown 12/21/2024 1:29 PM EDT 12/21/2024 1:29 PM EDT us Ana Brizuela MD LAB MOLECULAR DIAGNOSTICS ORDERABLES Final Result ED [facility] * (ABNORMAL) CBC auto differential (12/21/2024 1:29 PM EDT) WBC 2.5(L) 4.8 - 10.8 K/mcL LAB HEMETOLOGY METHOD 12/21/2024 4:30 PM EDT [facility] RBC 3.90 3.80 - 4.80 M/mcL LAB HEMETOLOGY METHOD 12/21/2024 4:30 PM EDT [facility] Hemoglobin 12.6 11.5 - 16.0 g/dL LAB HEMETOLOGY METHOD 12/21/2024 4:30 PM EDT [facility] Hematocrit 38.3 35.0 - 47.0 % LAB HEMETOLOGY METHOD 12/21/2024 4:30 PM EDT [facility] MCV 97.2 79.0 - 98.0 FL LAB HEMETOLOGY METHOD 12/21/2024 4:30 PM EDT [facility] MCH 32.0 27.0 - 32.0 pcg LAB HEMETOLOGY METHOD 12/21/2024 4:30 PM EDT [facility] MCHC 32.9 32.0 - 37.0 g/dL LAB HEMETOLOGY METHOD 12/21/2024 4:30 PM EDT [facility] RDW 12.2 11.0 - 15.0 % LAB HEMETOLOGY METHOD 12/21[facility]2024 [facility] Platelets 140 130 - 400 K/mcL LAB HEMETOLOGY METHOD 12/21/2024 4:30 PM EDT [facility] MPV 9.8 7.0 - 11.0 FL LAB HEMETOLOGY METHOD 12/21/2024 4:30 [facility] NRBC 0.0 <1.0 % LAB HEMETOLOGY METHOD 12/21/2024 4:30 PM [facility] NRBC Absolute 0.00 <0.10 K/mcL LAB HEMETOLOGY METHOD 12/21/2024 4:30 PM [facility] Neutrophils Relative 59.6 % LAB HEMETOLOGY METHOD 12/21/2024 4:30 PM [facility] Lymphocytes Relative 24.5 % LAB HEMETOLOGY METHOD 12/21/2024 4:30 PM [facility] Monocytes Relative 15.1 % LAB HEMETOLOGY METHOD 12/21/2024 4:30 PM [facility] Eosinophils Relative 0.0 % LAB HEMETOLOGY METHOD 12/21/2024 4:30 PM [facility] Basophils Relative 0.4 % LAB HEMETOLOGY METHOD 12/21/2024 4:30 PM [facility] Immature Granulocytes Relative 0.4 % LAB HEMETOLOGY METHOD 12/21/2024 4:30 PM [facility] Neutrophils Absolute 1.46(L) 1.50 - 7.00 K/mcL LAB HEMETOLOGY METHOD 12/21/2024 4:30 PM [facility] Lymphocytes Absolute 0.60(L) 1.00 - 5.00 K/mcL LAB HEMETOLOGY METHOD 12/21/2024 4:30 PM EDT [facility] Monocytes Absolute 0.37 0.20 - 1.00 K/mcL LAB HEMETOLOGY METHOD 12/21/2024 4:30 PM EDT [facility] Eosinophils Absolute 0.00 0.00 - 0.50 [facility] HEMETOLOGY METHOD 12/21/2024 4:30 PM EDT [facility] Basophils Absolute 0.01 0.00 - 0.20 K/mcL LAB HEMETOLOGY METHOD 12/21/2024 4:30 PM EDT [facility] Immature Granulocytes Absolute 0.01 0.00 - 0.03 K/mcL LAB HEMETOLOGY METHOD 12/21/2024 4:30 PM EDT [facility] Blood Venous blood specimen / Unknown Venipuncture / Unknown 12/21/2024 1:29 PM EDT 12/21/2024 1:29 PM EDT Ana Brizuela MD LAB BLOOD ORDERABLES Lucy chu Result [facility] [address] [place] [address], * Chlamydia trachomatis and Neisseria gonorrhoeae molecular study (12/21/2024 1:29 PM EDT) Neisseria gonorrhoeae PCR Negative Negative LAB MOLECULAR DIAGNOSTICS METHOD 12/22/2024 11:05 AM EDT [facility] Chlamydia trachomatis PCR Negative Negative LAB MOLECULAR DIAGNOSTICS METHOD 12/22/2024 11:05 AM EDT [facility] Urine Topography unknown / Unknown Non-blood Collection / Unknown 12/21/2024 1:29 PM EDT 12/21/2024 1:29 PM EDT us Ana Brizuela MD LAB MICROBIOLOGY - GENERA L ORDERABLES Final Result [facility] [address] [place] [address], [place] [phone] * (ABNORMAL) Lymphocyte T-cell panel (12/21/2024 1:29 PM EDT) CD4 162(L) 426 - 1,776 cells/mcL 12/25/2024 9:22 AM EDT [facility] CD8 268 161 - 838 cells/mcL 12/25/2024 9:22 AM EDT [facility] CD4/CD8 Ratio 0.60(L) 0.90 - 4.90 12/25/2024 9:22 AM EDT [facility] CD4 % 32(L) 33 - 64 % 12/25/2024 9:22 AM EDT [facility] CD8 % 53(H) 10 - 39 % 12/25/2024 9:22 AM EDT [facility] Blood Venous blood specimen / Unknown Venipuncture / Unknown 12/21/2024 1:29 PM EDT 12/21/2024 1:29 PM EDT Ana Brizuela MD LAB MOLECULAR DIAGNOSTICS ORDERABLES Final Result [facility] [address] [place] [address], [place] [phone] * HIV 1 molecular study quantitative (12/21/2024 1:29 PM EDT) Pathologist [facility] HIV-1 RNA Interpretation Not Detected Not Detected LAB MOLECULAR DIAGNOSTICS METHOD 12/22/2024 2:53 PM EDT [facility] Comment:HIV RNA not detected , unable to report quantitative results. Blood Venous blood specimen / Unknown Venipuncture / Unknown 12/21/2024 1:29 PM EDT 12/21/2024 1:29 PM EDT us Ana Brizuela MD LAB BLOOD ORDERABLES Lucy chu Result [facility] [address] [place] [address], [place] [phone] * (ABNORMAL) Comprehensive metabolic panel (12/21/2024 1:29 PM EDT) Sodium 134 133 - 145 mmol/L LAB CHEMISTRY METHOD 12/21/2024 4:38 PM T [facility] Potassium 3.5 3.5 - 5.5 mmol/L LAB CHEMISTRY METHOD 12/21/2024 4:38 PM [facility] Chloride 98 96 - 110 mmol/L LAB CHEMISTRY METHOD 12/21/2024 4:38 PM [facility] CO2 32 21 - 32 mmol/L LAB CHEMISTRY METHOD 12/21/2024 4:38 PM [facility] Anion Gap 4 3 - 11 LAB CHEMISTRY METHOD 12/21/2024 4:38 PM [facility] Glucose 125(H) 70 - 100 mg/dL LAB CHEMISTRY METHOD 12/21/2024 4:38 PM [facility] BUN 14 5 - 25 mg/dL LAB CHEMISTRY METHOD 12/21/2024 4:38 PM [facility] Creatinine 0.74 0.50 - 1.10 mg/dL LAB CHEMISTRY METHOD 12/21/2024 4:38 PM [facility] eGFR 88 >=60 mL/min/1. 73m2 LAB CHEMISTRY METHOD 12/21/2024 4:38 PM [facility] Comment:Calculation based on the Chronic Kidney Disease Epidemiology Collaboration (CKD-EPI) equation refit without adjustment for race. BUN/Creatinine Ratio 18.9 LAB CHEMISTRY METHOD 12/21/2024 4:38 PM [facility] Calcium 8.8 8.5 - 10.5 mg/dL LAB CHEMISTRY METHOD 12/21/2024 4:38 PM EDT [facility] AST (SGOT) 34 10 - 42 unit/L LAB CHEMISTRY METHOD 12/21/2024 4:38 PM EDT [facility] ALT (SGPT) 39 10 - 60 unit/L LAB CHEMISTRY METHOD 12/21/2024 4:38 PM EDT [facility] Alkaline Phosphatase 128(H) 42 - 121 unit/L LAB CHEMISTRY METHOD 12/21/2024 4:38 PM EDT [facility] Total Protein 6.9 6.0 - 8.0 g/dL LAB CHEMISTRY METHOD 12/21/2024 4:38 PM EDT [facility] Albumin 3.9 3.2 - 5.0 g/dL LAB CHEMISTRY METHOD 12/21/2024 4:38 PM EDT [facility] Total Bilirubin 0.7 0.0 - 1.4 mg/dL LAB CHEMISTRY METHOD 12/21/2024 4:38 PM EDT [facility] Blood Venous blood specimen / Unknown Venipuncture / Unknown 12/21/2024 1:29 PM EDT 12/21/2024 1:29 PM EDT us Ana Brizuela MD LAB BLOOD ORDERABLES Lucy kimberley Result [facility] [address] [place] [address], [place] [phone] * (ABNORMAL) Lipid panel with reflex to direct LDL (03/30/2024 10:58 AM EST) Cholesterol 189 0 - 200 mg/dL LAB CHEMISTRY METHOD 03/30/2024 6:01 PM EST [facility] Triglycerides 204(H) 0 - 150 mg/dL LAB CHEMISTRY METHOD 03/30/2024 6:01 PM EST [facility] HDL 52 >=40 mg/dL LAB CHEMISTRY METHOD 03/30/2024 6:[address] [facility] LDL Calculated 96 0 - 100 mg/dL LAB CHEMISTRY METHOD 03/30/2024 6:[address] [facility] VLDL Cholesterol Cm 40.8 mg/dL LAB CHEMISTRY METHOD 03/30/2024 6:[address] [facility] Non HDL Chol. (LDL+VLDL) 137 <145 mg/dL LAB CHEMISTRY METHOD 03/30/2024 6:[address] [facility] Chol/HDL Ratio 3.6 0.0 - 4.4 LAB CHEMISTRY METHOD 03/30/2024 6:[address] [facility] Blood Venous blood specimen / Unknown Venipuncture / Unknown 03/30/2024 10:58 AM EST 03/30/2024 10:58 AM EST us Roxana Mendez MD LAB BLOOD ORDERABLES Final Resul t [facility] [address] [place] [address], [place] [phone] * (ABNORMAL) Hemoglobin A1c (03/30/2024 10:58 AM EST) Hemoglobin A1C 6.5(H) <6.5 % LAB CHEMISTRY METHOD 03/30/2024 2:[address] [facility] Mean Bld Glu Estim. 140 mg/dL LAB CHEMISTRY METHOD 03/30/2024 2:[address] [facility] Blood Venous blood specimen / Unknown Venipuncture / Unknown 03/30/2024 10:58 AM EST 03/30/2024 10:58 AM EST us Roxana Mendez MD LAB BLOOD ORDERABLES Final Resul t [facility] [address] [place] [address], * Urine Albumin Creatinine Ratio (09/16/2023) Urine Albumin Creatinine Ratio Abstracted Historical Provider HEALTH MAINTENANCE Final Result * Depression Screening (02/20/2023) Depression Screening Abstracted Historical Provider HEALTH MAINTENANCE Final Result * Colonoscopy (10/17/2016) Colonoscopy No INterpretation , Abstracted Anatomical Region Laterality Modality Other Historical Provider HEALTH MAINTENANCE Final Result from Last 3 Months or Most Recently Relevant to Health Maintenance Insurance MEDICAID - [place] [facility] MEDICARE Member Subscriber Plan / Payer (Ef fective 2022-Present) Name:Reba Cisneros Relation to Subscriber:Self Name:Reba Cisneros Payer ID:[id number] Group ID:[id number] Type:Not on file Address: [address] [place] [address] MEDICARE Care Teams Manager Home Relationship Specialty Start Date End Date Roxana Mendez MD [address] [place] [address] PCP - General Internal Medicine 01/29/1999
== END 2025-02-04 16:00 | disposition home or self-care (01) ==
LOC: HO.MRI 15:59
PROVIDERS: PCP Internal Medicine; Visit Provider Psychiatry & Neurology Neurology
DX: G93.40 Encephalopathy, unspecified (principal)
CPT/HCPCS: 70553; A9585